=== PATIENT | female | born 1940 | race Caucasian/White ===

== ENCOUNTER 2017-08-15 12:17 | Inpatient (IN) ==
--- NOTE | 2017-08-15 13:31 | Emergency Department Note ---
Disposition Clinical Impression: Hypokalemia Sepsis Qualifiers: Sepsis type: sepsis due to unspecified organism Qualified Code(s): A41.9 - Sepsis, unspecified organism Leukocytosis Qualifiers: Leukocytosis type: unspecified Qualified Code(s): D72.829 - Elevated white blood cell count, unspecified Renal failure Qualifiers: Renal failure chronicity: unspecified chronicity Qualified Code(s): N19 - Unspecified kidney failure Disposition: Admitted As Inpatient Condition: Fair Referrals: Michael Agudelo MD [Primary Care Provider] - Forms: ED Satisfaction Letter General Adult HPI - General Chief complaint: ED Weakness Stated complaint: Weakness Time Seen by Provider: 08/15/17 12:20 Source: patient, EMS Limitations: no limitations Nursing Notes Reviewed: Yes Vital Signs Reviewed: Yes - History of Present Illness HPI Narrative: Presents with her daughter and her patient does have a history of dementia and lives at home and presents today with complaint of decreased ability to use her left arm, slurred speech, shortness of breath which always present when she woke up this morning. She does have some rhinorrhea, cough, sneezing. No fever. Did have some blurred vision. No blood in the urine or stool. No pain or numbness or swelling of the extremities, skin rash or bruising of the skin. Symptoms have been present since this morning and began at home and she does have associated left-sided chest pain and left upper abdominal pain. She is not able to describe the character of the chest pain. Does not know if it is exertional because she has not walked yet today. Does not have a pleuritic aspect. Social history: No smoking or alcohol. The patient is DNR - arrest. No chest compressions and no intubation Pain Scale: 5 - Related Data Home Medications Medication Instructions Recorded Confirmed Aspirin Enteric Coated [Aspirin EC] 325 mg PO DAILY 10/21/15 08/15/17 Ergocalciferol (VITAMIN D2) 50,000 unit PO QWEEK 10/21/15 08/15/17 [Drisdol (50,000 Unit)] Isosorbide MONOnitrate (24 HR) 30 mg PO DAILY 10/21/15 08/15/17 [Imdur] Omeprazole [PriLOSEC] 20 mg PO BIDAC 10/21/15 08/15/17 Albuterol Sulfate [Proair Hfa] 2 puff IH Q4H PRN 10/18/16 08/15/17 Budesonide/Formoterol 160/4.5 1 puff IH DAILY 10/18/16 08/15/17 [Symbicort 160/4.5] Donepezil HCl [Aricept] 10 mg PO DAILY 10/18/16 08/15/17 Folic Acid 0.4 mg PO DAILY 10/18/16 08/15/17 Furosemide [Lasix] 10 mg PO DAILY 10/18/16 08/15/17 Gabapentin [Neurontin] 300 mg PO TID 10/18/16 08/15/17 Ipratropium [ATROVENT Inhaler] 1 puff IH DAILY 10/18/16 08/15/17 Melatonin [Melatin] 3 mg PO HS 10/18/16 08/15/17 Nitroglycerin [Nitrostat] 0.4 mg SL AD PRN 10/18/16 08/15/17 Ondansetron HCl [Zofran] 4 mg PO TID PRN 10/18/16 08/15/17 Oxygen 1 each .ROUTE AD 10/18/16 08/15/17 Potassium Chloride [Klor-Con 10] 20 meq PO DAILY 10/18/16 08/15/17 Sertraline [Zoloft] 100 mg PO DAILY 10/18/16 08/15/17 Tiotropium [Spiriva] 18 mcg IH DAILY 10/18/16 08/15/17 diazePAM [Valium] 10 mg PO BID 10/18/16 08/15/17 Ezetimibe/Simvastatin [Vytorin 1 tab PO DAILY 08/15/17 08/15/17 10-20 mg Tablet] Metoprolol [Lopressor] 25 mg PO BID 08/15/17 08/15/17 Previous Rx's Medication Instructions Recorded HYDROcodone/Acet 5/325 mg [[place] 1 tab PO Q6HR PRN #15 tablet 01/12/16 5-325 mg] Losartan [Cozaar] 12.5 mg PO DAILY tablet 01/12/16 Lovastatin [Mevacor] 20 mg PO HS tablet 01/12/16 Allergies Allergy/AdvReac Type Severity Reaction Status Date / Time codeine Allergy Hives Verified 10/18/16 10:11 iodine Allergy Hives Verified 10/18/16 10:11 methotrexate Allergy Hives Verified 10/18/16 10:11 Review of Systems: Refer to history of present illness Past Medical History - Past Medical History Medical history: Reports: atrial fibrillation, CHF, COPD, coronary artery disease, fibromyalgia, GERD, hyperlipidemia, hypertension, TIA Surgical history: Reports: heart valve replacement, pacemaker/AICD Psychiatric history: Reports: anxiety, depression - Social History Smoking Status: Never smoker Smokeless Tobacco Status: No Alcohol use: Reports: none Drug use: Reports: none Physical Exam CONSTITUTIONAL: Tired appearing, breathing comfortably, her stroke scale is 0. She does know the month and her age. He is able to answer questions seemingly accurately HEAD: Normocephalic; atraumatic. EYES: PERRL, EOMI, no scleral icterus NOSE: The nose is normal in appearance without rhinorrhea NECK: Supple without rigidity, no NILS RESP: Normal chest excursion with respiration; breath sounds clear and equal bilaterally; no wheezes, rhonchi, or rales CARD: Regular rhythm, without murmurs, rub or gallop ABD: Non-distended; non-tender, soft, without rigidity, rebound or guarding SKIN: Normal for age and race; warm and dry; no apparent lesions, no rash NEUROLOGICAL: Patient is alert and oriented times three. Cranial nerves III- XII are intact. Sensory and motor functions are intact. Strength is 5/5 for flexion and extension in all 4 extremities. Finger to nose testing is equal and normal bilaterally except that there is some resting tremor of the left upper extremity . - General Limitations: no limitations General appearance: alert Course Vital Signs Temperature 98.2 F 08/15/17 12:19 Pulse Rate 110 08/15/17 12:19 Respiratory Rate 18 08/15/17 12:19 Blood Pressure 133/100 08/15/17 12:19 O2 Sat by Pulse Oximetry 99 08/15/17 12:19 Temperature 98.2 F 08/15/17 12:19 Pulse Rate 97 08/15/17 14:35 Respiratory Rate 18 08/15/17 14:35 Blood Pressure 102/68 08/15/17 14:35 O2 Sat by Pulse Oximetry 99 08/15/17 14:35 Oxygen Delivery Oxygen Delivery Room Air Medical Decision Making - MDM Narrative Medical decision making narrative: The patient does have symptoms concerning for stroke however she is not a thrombolytic candidate because we do not know the onset of the symptoms that she woke with the symptoms. She states she is not able to use her left arm adequately however does not have left leg symptoms. I do not appreciate any slurred speech at the present time. Her stroke scale is 0. She also does have significant pain with palpation left anterior chest wall and left upper quadrant abdomen and will have further evaluation with a CTA of the chest and abdomen to further look for possible pulmonary embolism, mass, mesenteric ischemia or other life-threatening etiology. She will be admitted. 1314 I did review the initial labs and the patient is hypokalemic and will receive oral potassium. I did speak with the daughter the patient has had IV contrast without difficulty and she has had that within the last several years. He stated that over 10 or 15 years ago she did have a IVP and he thought she was allergic to IVP dye but she does not have an allergy to contrast. 1338 I did review the patient's initial EKG showing a paced rhythm with a rate of 60 and I did compare this to the previous EKG from 2016. CT of the chest and abdomen are pending. Patient does not have an allergy to contrast and she is getting the CT done at this time. Minimally decreased renal function but as there is a concern for pulmonary embolism, aortic dissection the patient does have further evaluation needed with a contrast chest CT. 1412 CT of the chest and abdomen are pending. I did speak with the hospitalist to admit the patient. I have given an additional 1 L of IV fluid as well as started the patient on Zosyn and vancomycin. She does have leukocytosis, significantly elevated lactate level. Additionally I did choose to do a CT scan despite the fact that she does have some, as the renal function as a risk to outweigh the benefits based on consideration for things like pulmonary embolism or a pneumonia which could warp changer and additionally she could have a intra-abdominal process which could require emergent surgery for source control. Critical care time: 45 minutes - Medical Records Medical records reviewed: Yes I reviewed the patient's medical records. - Lab Data Lab results reviewed: Yes I reviewed the patient's lab results. Result diagrams: 08/15/17 14:43 08/15/17 13:11 Lab Results 08/15/17 08/15/17 08/15/17 Range/Units 13:11 13:11 13:11 WBC (4.3-11.1) K/mcL RBC (3.82-4.97) M/mcL Hgb (11.5-15.4) g/dL Hct (35.3-44.9) % MCV (83.0-100.0) fL MCH (28.0-33.3) pg MCHC (31.6-35.5) g/dL RDW (11.5-14.5) % Plt Count (140-400) K/mcL MPV (9.4-12.4) fL Seg Neutrophils % % Band Neutrophils % (0-4) % Lymphocytes % % Monocytes % % Eosinophils % % Neutrophils # (1.6-8.9) K/mcL Lymphocytes # (0.6-4.6) K/mcL Monocytes # (0.0-1.3) K/mcL Eosinophils # (0.0-0.6) K/mcL Platelet Estimate (Normal) Large Platelets (Not Present) Sodium 140 (136-145) mEq/L Potassium 3.0 L (3.5-4.5) mEq/L Chloride 106 (98-109) mEq/L Carbon Dioxide 19 (19-29) mEq/L BUN 22 H (7-20) mg/dL Creatinine 1.41 H (0.57-1.11) mg/dL Est GFR ( Amer) 44 L (> 60) Est GFR (Non-Af Amer) 36 L (> 60) BUN/Creatinine Ratio 16 (6-26) Glucose 162 H (70-99) mg/dL POC Glucose (58-89) Calculated Osmolality 297 (280-300) Lactic Acid (0.5-2.2) mmol/L Calcium 10.4 (8.6-10.8) mg/dL Total Bilirubin 0.3 (0.2-1.2) mg/dL AST 19 (5-34) Units/L ALT 10 (0-55) Units/L Alkaline Phosphatase 95 (38-126) Units/L Troponin I 0.04 H* (0-0.03) ng/mL Serum Total Protein 8.4 H (6.0-8.3) g/dL Albumin 4.1 (3.5-5.0) g/dL Globulin 4.3 H (2.4-3.5) g/dL Albumin/Globulin Ratio 1.0 L (1.1-2.2) Urine Color (Yellow) Urine Clarity (Clear) Urine pH (5.0-8.0) pH Units Ur Specific [place] (1.010-1.025) Urine Protein (Neg-Trace) mg/dL Urine Glucose (UA) (Normal) mg/dL Urine Ketones (Negative) mg/dL Urine Blood (Negative) Urine Nitrite (Negative) Urine Bilirubin (Negative) Urine Urobilinogen (Normal) mg/dL Ur Leukocyte Esterase (Negative) Urine Microscopic RBC (0-3) per hpf Urine Microscopic WBC (0-3) per hpf Ur Squamous Epith Cells (None-Few) per lpf Amorphous Sediment (Few) Urine Bacteria (None-Few) per hpf Hyaline Casts (None-Few) per lpf Urine Mucus (Few) Ur Culture Indicated? (NO) Specimen Rejected Clotted 08/15/17 08/15/17 08/15/17 Range/Units 13:15 14:43 15:30 WBC 30.0 H* (4.3-11.1) K/mcL RBC 4.68 (3.82-4.97) M/mcL Hgb 12.3 (11.5-15.4) g/dL Hct 39.0 (35.3-44.9) % MCV 83.3 (83.0-100.0) fL MCH 26.3 L (28.0-33.3) pg MCHC 31.5 L (31.6-35.5) g/dL RDW 14.5 (11.5-14.5) % Plt Count 233 (140-400) K/mcL MPV 10.9 (9.4-12.4) fL Seg Neutrophils % 80.0 % Band Neutrophils % 12.0 H (0-4) % Lymphocytes % 4.0 % Monocytes % 2.0 % Eosinophils % 2.0 % Neutrophils # 27.6 H (1.6-8.9) K/mcL Lymphocytes # 1.2 (0.6-4.6) K/mcL Monocytes # 0.6 (0.0-1.3) K/mcL Eosinophils # 0.6 (0.0-0.6) K/mcL Platelet Estimate Normal (Normal) Large Platelets (Not Present) Sodium (136-145) mEq/L Potassium (3.5-4.5) mEq/L Chloride (98-109) mEq/L Carbon Dioxide (19-29) mEq/L BUN (7-20) mg/dL Creatinine (0.57-1.11) mg/dL Est GFR ( Amer) (> 60) Est GFR (Non-Af Amer) (> 60) BUN/Creatinine Ratio (6-26) Glucose (70-99) mg/dL POC Glucose 155 H (58-89) Calculated Osmolality (280-300) Lactic Acid 4.9 H* (0.5-2.2) mmol/L Calcium (8.6-10.8) mg/dL Total Bilirubin (0.2-1.2) mg/dL AST (5-34) Units/L ALT (0-55) Units/L Alkaline Phosphatase (38-126) Units/L Troponin I (0-0.03) ng/mL Serum Total Protein (6.0-8.3) g/dL Albumin (3.5-5.0) g/dL Globulin (2.4-3.5) g/dL Albumin/Globulin Ratio (1.1-2.2) Urine Color (Yellow) Urine Clarity (Clear) Urine pH (5.0-8.0) pH Units Ur Specific [place] (1.010-1.025) Urine Protein (Neg-Trace) mg/dL Urine Glucose (UA) (Normal) mg/dL Urine Ketones (Negative) mg/dL Urine Blood (Negative) Urine Nitrite (Negative) Urine Bilirubin (Negative) Urine Urobilinogen (Normal) mg/dL Ur Leukocyte Esterase (Negative) Urine Microscopic RBC (0-3) per hpf Urine Microscopic WBC (0-3) per hpf Ur Squamous Epith Cells (None-Few) per lpf Amorphous Sediment (Few) Urine Bacteria (None-Few) per hpf Hyaline Casts (None-Few) per lpf Urine Mucus (Few) Ur Culture Indicated? (NO) Specimen Rejected 08/15/17 Range/Units 15:42 WBC (4.3-11.1) K/mcL RBC (3.82-4.97) M/mcL Hgb (11.5-15.4) g/dL Hct (35.3-44.9) % MCV (83.0-100.0) fL MCH (28.0-33.3) pg MCHC (31.6-35.5) g/dL RDW (11.5-14.5) % Plt Count (140-400) K/mcL MPV (9.4-12.4) fL Seg Neutrophils % % Band Neutrophils % (0-4) % Lymphocytes % % Monocytes % % Eosinophils % % Neutrophils # (1.6-8.9) K/mcL Lymphocytes # (0.6-4.6) K/mcL Monocytes # (0.0-1.3) K/mcL Eosinophils # (0.0-0.6) K/mcL Platelet Estimate (Normal) Large Platelets (Not Present) Sodium (136-145) mEq/L Potassium (3.5-4.5) mEq/L Chloride (98-109) mEq/L Carbon Dioxide (19-29) mEq/L BUN (7-20) mg/dL Creatinine (0.57-1.11) mg/dL Est GFR ( Amer) (> 60) Est GFR (Non-Af Amer) (> 60) BUN/Creatinine Ratio (6-26) Glucose (70-99) mg/dL POC Glucose (58-89) Calculated Osmolality (280-300) Lactic Acid (0.5-2.2) mmol/L Calcium (8.6-10.8) mg/dL Total Bilirubin (0.2-1.2) mg/dL AST (5-34) Units/L ALT (0-55) Units/L Alkaline Phosphatase (38-126) Units/L Troponin I (0-0.03) ng/mL Serum Total Protein (6.0-8.3) g/dL Albumin (3.5-5.0) g/dL Globulin (2.4-3.5) g/dL Albumin/Globulin Ratio (1.1-2.2) Urine Color [place] A (Yellow) Urine Clarity Cloudy A (Clear) Urine pH 5.0 (5.0-8.0) pH Units Ur Specific [place] 1.030 H (1.010-1.025) Urine Protein 100 H (Neg-Trace) mg/dL Urine Glucose (UA) Normal (Normal) mg/dL Urine Ketones Trace H (Negative) mg/dL Urine Blood Negative (Negative) Urine Nitrite Negative (Negative) Urine Bilirubin Moderate H (Negative) Urine Urobilinogen Normal (Normal) mg/dL Ur Leukocyte Esterase Moderate H (Negative) Urine Microscopic RBC 3-5 H (0-3) per hpf Urine Microscopic WBC 50-100 H (0-3) per hpf Ur Squamous Epith Cells Many H (None-Few) per lpf Amorphous Sediment Many H (Few) Urine Bacteria Many H (None-Few) per hpf Hyaline Casts Many H (None-Few) per lpf Urine Mucus Many H (Few) Ur Culture Indicated? YES A (NO) Specimen Rejected Critical Care Time Critical Care Time: Yes Total Critical Care Time: 45 Attestation: Patient does have septic shock with altered consciousness, shortness of breath, leukocytosis and elevated lactate level and she is started on Zosyn and vancomycin NIH Stroke Scale - Level of Consciousness LOC: Alert - LOC Questions LOC Questions: Answers both correctly - LOC Commands LOC Commands: Performs both correctly - Best Gaze Best Gaze: Normal - Visual Visual: No visual loss - Facial Palsy Facial Palsy: Normal - Motor Arms Motor Arm-Left: No drift for 10 seconds Motor Arm-Right: No drift for 10 seconds - Motor Legs Motor Leg-Left: No drift for 5 seconds Motor Leg-Right: No drift for 5 seconds - Limb Ataxia Limb Ataxia: Normal, No Ataxia - Sensory Sensory: Normal - Best Language Best Language: No aphasia - Dysarthria Dysarthria: Normal - Extinction and Inattention Extinction and Inattention: Normal - NIHSS Total Score NIHSS Total Score: 0
[2017-08-15 13:34] LABS: Albumin 4.1 g/dL (3.5-5.0); Bilirubin,Total 0.3 mg/dL (0.2-1.2); Calcium 10.4 mg/dL (8.6-10.8); Globulin 4.3 g/dL (2.4-3.5); Total Protein 8.4 g/dL (6.0-8.3)
[2017-08-15] MEDS ORDERED: Potassium Chloride Elixir 20 MEQ/15 ML UDC PO ONE (13:38)
[2017-08-15] MEDS ORDERED: 0.9 % Sodium Chloride 500 ML IVC ONE ×2 (14:01→16:02)
[2017-08-15 14:57] LABS: Hemoglobin 12.3 g/dL (11.5-15.4); Mean Corpuscular HGB Conc 31.5 g/dL (31.6-35.5); Mean Corpuscular Hemoglobin 26.3 pg (28.0-33.3); Mean Corpuscular Volume 83.3 fL (83.0-100.0); Mean Platelet Volume 10.9 fL (9.4-12.4); Platelet Count 233 K/mcL (140-400); Red Blood Count 4.68 M/mcL (3.82-4.97); Red Cell Distribution Width 14.5 % (11.5-14.5)
[2017-08-15 15:25] LABS: Eosinophils # 0.6 K/mcL (0.0-0.6); Lymphocytes # 1.2 K/mcL (0.6-4.6); Monocytes # 0.6 K/mcL (0.0-1.3); Neutrophils # 27.6 K/mcL (1.6-8.9); Platelet Estimate Normal (Normal)
[2017-08-15 15:55] LABS: Bilirubin,Urine Moderate (Negative); Blood,Urine Negative (Negative); Clarity,Urine Cloudy (Clear); Glucose,Urine (UA) Normal (Normal); Ketones,Urine Trace mg/dL (Negative); Leukocyte Esterase,Urine Moderate (Negative); Nitrite,Urine Negative (Negative); Protein,Urine 100 mg/dL (Neg-Trace); Urobilinogen,Urine Normal (Normal)
[2017-08-15 15:57] LABS: Squamous Epithelial Cell,Urine Many per lpf (None-Few); WBC,Urine 50-100 per hpf (0-3)
[2017-08-15] MEDS ORDERED: Piperacillin/Tazobactam 4.5 GM in D5% in Water (Mini-Bag+) 100 ML IVPB ONE (16:02)
[2017-08-15] MEDS ORDERED: Vancomycin 1,000 MG in D5% in Water 250 ML IVPB ONE ×2 (16:02→16:07)
[2017-08-15 16:03] LABS: Color,Urine Amber (Yellow)
[2017-08-15] MEDS ORDERED: 0.9 % Sodium Chloride 1,000 ML IVC ONE (16:03)
[2017-08-15 16:12] LABS: Hyaline Casts,Urine Many per lpf (None-Few)
[2017-08-15 16:13] LABS: Amorphous Sediment,Urine Many (Few); Bacteria,Urine Many per hpf (None-Few); Mucus,Urine Many (Few)
[2017-08-15] MEDS ORDERED: Naloxone 0.4 MG/ML INJ IVP PRN (20:11)
[2017-08-15] MEDS ORDERED: Ondansetron 4 MG/2 ML VIAL IVP PRN (20:11)
[2017-08-15] MEDS ORDERED: Nitroglycerin 0.4 MG TAB.SUBL SL PRN (20:14)
[2017-08-15] MEDS ORDERED: Albuterol 2.5 MG/3 ML NEBULIZER IH PRN (20:16)
--- NOTE | 2017-08-15 20:36 | Internal Med History&Physical ---
<Jean Carlos Drummond - Last Filed: 08/15/17 23:46> Date of Encounter: 08/15/17 Time of Encounter: 20:00 Assessment and Plan (1) Septic shock Current visit: Yes Status: Acute Patient diagnosed with septic shock based on altered consciousness on presentation, shortness of breath, leukocytosis with white count 30, elevated lactate level of 4.9. -Both blood and urine cultures have been ordered. -Patient was started on vancomycin and Zosyn. -Continue to monitor patient vital signs. (2) UTI (urinary tract infection) Current visit: No Status: Acute Urinalysis revealed ariadna, cloudy urine, with bacteria, mucus, protein, white blood cells present. -Both blood and urine cultures have been ordered. -Urinary tract infection is possible source of patient's sepsis. -Patient was started on vancomycin and Zosyn. Qualifiers: Urinary tract infection type: site unspecified Hematuria presence: without hematuria Qualified Code(s): N39.0 - Urinary tract infection, site not specified (3) Weakness Current visit: No Status: Acute (4) Afib Current visit: No Status: Chronic Qualifiers: Atrial fibrillation type: chronic Qualified Code(s): I48.2 - Chronic atrial fibrillation Internal Medicine - H&P: HPI Admitted From: Home History of present illness: Ms. Chaidez is a 77 year old female with a past medical history of atrial fibrillation, CHF, COPD, coronary artery disease, fibromyalgia, GERD, hyperlipidemia, hypertension, and TIA who presented to the emergency department with the chief complaint of decreased ability to use her left arm, slurred speech, and shortness of breath. Upon presentation the hospital, patient did have some rhinorrhea, cough, and sneezing. She denied having any fever on presentation. Patient denied having any numbness, swelling, or burning of the skin. Patient denied having any trouble swallowing. Patient states that her symptoms gradually improved after admission, patient was able to use her left arm after a few hours. Patient also did not have any slurred speech a few hours after admission. Patient does admit to having some pain in her shoulder on the left side, although this has been present for approximately one year. Patient does also admit having some mild chest pain on the lower border of her right breast. This pain is hard to describe, and is only mild in severity. Patient does not know if it is exertional or not, as she has not been able to walk today. She denies any fever or chills. Past Med Surg Social Fam HX - Past Medical History Medical history: atrial fibrillation, CHF, COPD, coronary artery disease, fibromyalgia, GERD, hyperlipidemia, hypertension, TIA Psychiatric history: anxiety, depression - Past Surgical History Surgical History: heart valve replacement, pacemaker/AICD - Social History Smoking Status: Never smoker Smokeless Tobacco Status: No Alcohol use: none Drug use: none - Family History Mother Living Status: Age at : 67 Cause of : heart attack Hx Family Cardiac Disorders: Yes Father Living Status: Age at : 62 Cause of : heart attack Hx Family Cardiac Disorders: Yes Internal Medicine - H&P: Meds Aspirin Enteric Coated [Aspirin EC] 325 mg PO DAILY 10/21/15 [History] Ergocalciferol (VITAMIN D2) [Drisdol (50,000 Unit)] 50,000 unit PO QWEEK [History] Isosorbide MONOnitrate (24 HR) [Imdur] 30 mg PO DAILY 10/21/15 [History] Omeprazole [PriLOSEC] 20 mg PO BIDAC 10/21/15 [History] HYDROcodone/Acet 5/325 mg [[place] 5-325 mg] 1 tab PO Q6HR PRN #15 tablet [Rx] Losartan [Cozaar] 12.5 mg PO DAILY tablet 01/12/16 [Rx] Lovastatin [Mevacor] 20 mg PO HS tablet 01/12/16 [Rx] Albuterol Sulfate [Proair Hfa] 2 puff IH Q4H PRN 10/18/16 [History] Budesonide/Formoterol 160/4.5 [Symbicort 160/4.5] 1 puff IH DAILY 10/18/16 [ History] Donepezil HCl [Aricept] 10 mg PO DAILY 10/18/16 [History] Folic Acid 0.4 mg PO DAILY 10/18/16 [History] Furosemide [Lasix] 10 mg PO DAILY 10/18/16 [History] Gabapentin [Neurontin] 300 mg PO TID 10/18/16 [History] Ipratropium [ATROVENT Inhaler] 1 puff IH DAILY 10/18/16 [History] Melatonin [Melatin] 3 mg PO HS 10/18/16 [History] Nitroglycerin [Nitrostat] 0.4 mg SL AD PRN 10/18/16 [History] Ondansetron HCl [Zofran] 4 mg PO TID PRN 10/18/16 [History] Oxygen 1 each .ROUTE AD 10/18/16 [History] Potassium Chloride [Klor-Con 10] 20 meq PO DAILY 10/18/16 [History] Sertraline [Zoloft] 100 mg PO DAILY 10/18/16 [History] Tiotropium [Spiriva] 18 mcg IH DAILY 10/18/16 [History] diazePAM [Valium] 10 mg PO BID 10/18/16 [History] Ezetimibe/Simvastatin [Vytorin 10-20 mg Tablet] 1 tab PO DAILY 08/15/17 [History ] Metoprolol [Lopressor] 25 mg PO BID 08/15/17 [History] 3 Allergy/AdvReac Type Severity Reaction Status Date / Time codeine Allergy Hives Verified 10/18/16 10:11 iodine Allergy Hives Verified 10/18/16 10:11 methotrexate Allergy Hives Verified 10/18/16 10:11 All Systems PM: A 10-system review of systems was performed and is negative for pertinent findings except as documented above in the HPI. - Constitutional Constitutional: no chills, no fever(s), no night sweats - EENT Eyes: no change in vision, no discharge, no pain, no photophobia Ears: no ear discharge, no ear pain, no tinnitus Nose, mouth and throat: no dysphagia, no nasal discharge, no neck pain, no sore throat - Cardiovascular Cardiovascular ROS IM: no chest pain, no diaphoresis, no dyspnea, no lightheadedness, no palpitations, no syncope - Respiratory Respiratory: no cough, no dyspnea, no wheezing, no excessive phlegm production - Gastrointestinal Gastrointestinal: no abdominal pain, no diarrhea, no hematemesis, no hematochezia, no melena, no nausea, no vomiting - Genitourinary Genitourinary: no dysuria, no flank pain - Musculoskeletal Musculoskeletal ROS IM: no numbness, no tingling - Integumentary Integumentary IM: no rash, no unusual bruising - Neurological Neurological ROS: no confusion, no convulsions, no focal weakness, no numbness, no tingling, no tremor(s) - Hematologic/Lymphatic Hematologic/Lymphatic: no easy bruising - Constitutional Vitals: Temp Pulse Resp BP Pulse Ox 97.9 F 100 17 148/94 98 08/15/17 19:04 08/15/17 19:04 08/15/17 19:04 08/15/17 19:04 08/15/17 19:04 General appearance: Present: A&O X 3, no acute distress, answers questions appropriately - Head Head exam: Present: atraumatic, normocephalic - Eye Eye exam: Present: PERRL, conjuntiva pink, sclera anicteric Pupils: Present: PERRL - Neck Neck exam general surgery: Present: supple, trachea midline. Absent: lymphadenopathy - Respiratory Respiratory exam: Present: CTAB. Absent: accessory muscle use, rales, rhonchi, wheezes - Cardiovascular Cardiovascular exam: Present: +S1, +S2, systolic murmur, tachycardia. Absent: diastolic murmur, gallop, rubs - GI/Abdominal GI/Abdominal exam: Present: normal bowel sounds, soft, no peritoneal signs. Absent: distended, tenderness - Extremities Exam Extremities exam: Present: warm, radial pulses palpable and symmetrical. Absent : calf tenderness, cyanotic, pedal edema - Neurological Exam Neurological exam: Present: CN II-XII intact, oriented X3, no focal deficits. Absent: pronater drift, facial droop, speech deficit - Skin Skin exam: Present: dry, intact Internal Med - H&P Results - Labs CBC & Chem 7: 08/15/17 14:43 08/15/17 13:11 <Camilo Kapoor - Last Filed: 08/16/17 03:24> Date of Encounter: 08/15/17 Assessment and Plan (1) HTN (hypertension) Current visit: Yes Status: Chronic Hold all antihypertensives with the exception of metoprolol with holding parameters due to concern for the possibility of developing AFIB RVR in the setting of severe sepsis Qualifiers: Hypertension type: essential hypertension Qualified Code(s): I10 - Essential (primary) hypertension (2) GERD (gastroesophageal reflux disease) Current visit: Yes Status: Chronic Continue PPI Qualifiers: Esophagitis presence: without esophagitis Qualified Code(s): K21.9 - Gastro -esophageal reflux disease without esophagitis (3) Hypokalemia Current visit: Yes Status: Acute Potassium of 3.0, may be related to poor or intake, will replace and follow BMP (4) Acute renal injury Current visit: Yes Status: Acute Patient with baseline creatinine of 0.7, now has creatinine of 1.41 in the setting of severe sepsis, etiology of this DIMITRI is most likely pre-renal, will override nephrotoxins, renally dose all medications and follow BMP (5) Elevated troponin level Current visit: Yes Status: Acute Elevated troponin may be related to either DIMITRI with poor renal clearance or demand ischemia from severe sepsis, she does not endorse chest pain, will repeat in AM (6) COPD (chronic obstructive pulmonary disease) Current visit: Yes Status: Chronic stable, will do PRN nebs Qualifiers: COPD type: emphysema Emphysema type: centrilobular Qualified Code(s): J43.2 - Centrilobular emphysema (7) Dementia Current visit: Yes Status: Chronic continue aricept and monitor for delirium in the setting of critical illness Qualifiers: Dementia type: Alzheimer's disease Alzheimer's disease onset: late-onset Dementia behavioral disturbance: without behavioral disturbance Qualified Code (s): G30.1 - Alzheimer's disease with late onset; F02.80 - Dementia in other diseases classified elsewhere without behavioral disturbance; F02.80 - Dementia in other diseases classified elsewhere without behavioral disturbance; F02.80 - Dementia in other diseases classified elsewhere without behavioral disturbance Internal Medicine - H&P: HPI History of present illness: Ms. Chaidez is a 77 year old female All Systems PM: A 10-system review of systems was performed and is negative for pertinent findings except as documented above in the HPI. - Constitutional Vitals: Temp Pulse Resp BP Pulse Ox 97.9 F 100 17 148/94 98 08/15/17 19:04 08/15/17 19:04 08/15/17 19:04 08/15/17 19:04 08/15/17 19:04 Internal Med - H&P Results - Labs CBC & Chem 7: 08/16/17 01:30 08/16/17 01:30 Labs: Short CBC 08/16/17 Range/Units 01:30 WBC 14.8 H D (4.3-11.1) K/mcL Hgb 10.5 L D (11.5-15.4) g/dL Hct 33.2 L (35.3-44.9) % Plt Count 200 (140-400) K/mcL Neutrophils # 12.9 H (1.6-8.9) K/mcL BMP 08/16/17 01:30 Sodium 139 Potassium 4.7 H D Chloride 111 H Carbon Dioxide 19 BUN 21 H Creatinine 1.21 H Glucose 117 H Calcium 9.3 Cardiac Enzymes 08/16/17 Range/Units 01:30 Troponin I 0.80 H* (0-0.03) ng/mL - Attending Attestation I personally interviewed and examined this patient and my medical decision- making was reviewed with the Resident Physician. I agree with the documented findings, disposition and treatment plan as described except to the extent set forth below. Patient is being admitted as a case of severe sepsis(not septic shock) secondary to UTI, DIMITRI, hypokalemia, hypertension, Gerd. Cycle lactate, empiric Abx with IV ceftriaxone pending cultures. Camilo Kapoor MD, MPH Hospitalist
[2017-08-15] MEDS: diazePAM 10 MG TABLET PO SCH (22:17)
[2017-08-15] MEDS: Acetaminophen 325 MG TABLET PO PRN (22:18)
[2017-08-15] MEDS: Melatonin 3 MG TABLET PO SCH (22:18)
[2017-08-15] MEDS: 0.9 % Sodium Chloride 1,000 ML IVC SCH (22:19)
[2017-08-16] MEDS: *HR* Heparin 5,000 UNIT/ML VIAL SQ SCH ×3 (00:32→15:20)
[2017-08-16 01:40] LABS: Basophils % 0.1 %; Hematocrit 33.2 % (35.3-44.9); Immature Granulocytes % 0.5 % (0-4); Lymphocytes # 1.2 K/mcL (0.6-4.6); Lymphocytes % 8.1 %; Mean Corpuscular HGB Conc 31.6 g/dL (31.6-35.5); Mean Corpuscular Hemoglobin 26.8 pg (28.0-33.3); Mean Corpuscular Volume 84.7 fL (83.0-100.0); Mean Platelet Volume 10.6 fL (9.4-12.4); Monocytes # 0.6 K/mcL (0.0-1.3); Neutrophils # 12.9 K/mcL (1.6-8.9); Platelet Count 200 K/mcL (140-400); Red Blood Count 3.92 M/mcL (3.82-4.97); Red Cell Distribution Width 14.6 % (11.5-14.5); Segmented Neutrophils % 87.3 %
[2017-08-16 01:41] LABS: Hemoglobin 10.5 g/dL (11.5-15.4)
[2017-08-16 01:52] LABS: Calcium 9.3 mg/dL (8.6-10.8); Magnesium 1.7 mg/dL (1.6-2.6); Phosphorous 3.9 mg/dL (2.3-4.7)
[2017-08-16 01:53] LABS: Potassium 4.7 mEq/L (3.5-4.5)
[2017-08-16] MEDS: 0.9 % Sodium Chloride 1,000 ML IVC SCH ×2 (06:28→15:16)
[2017-08-16] MEDS ORDERED: Isosorbide MONOnitrate (24 HR) 30 MG TAB.ER.24H PO SCH (09:00)
--- NOTE | 2017-08-16 09:23 | Electrocardiograph Report ---
[facility] Test Date: 2017-08-15 Pat Name: Florecita Chaidez Department: 103 Room: 2NE22 Gender: F Test Grader: : 1940 Requested By: Gabriel Santos Order Number: [id number] Reading MD: Eamon Baez MD Measurements Intervals [place] Rate: 60 P: 244 TN: 289 QRS: -62 QRSD: 202 T: 120 QT: 557 QTc: 557 Interpretive Statements ELECTRONIC ATRIAL PACEMAKER ELECTRONIC VENTRICULAR PACEMAKER ABNORMAL RHYTHM ECG Electronically Signed On 08-16-2017 9:21:50 EDT by Eamon Baez MD
[2017-08-16] MEDS: diazePAM 10 MG TABLET PO SCH ×2 (09:59→22:14)
[2017-08-16] MEDS: *HR* HYDROcodone/Acet 5/325 mg TABLET PO PRN ×2 (10:04→19:01)
[2017-08-16] MEDS: Tiotropium 18 MCG inhalation IH SCH (10:12)
--- NOTE | 2017-08-16 11:30 | Internal Med Progress Note ---
<Isatu Aly - Last Filed: 08/16/17 11:49> Date of Encounter: 08/16/17 Time of Encounter: 11:18 - Assessment and plan (1) Elevated troponin level Current Visit: Yes Status: Acute Assessment and plan: complaint of vague chest pain on admission, currently chest pain free peak of 0.8, trending down cardiology consulted; appreciate recommendations (2) UTI (urinary tract infection) Current Visit: No Status: Acute Assessment and plan: Urinalysis with leukocyte esterase, WBC, many bacteria, mucus, hyaline casts, many epithelial cells currently on rocephin received vancomycin and rocephin in ER Qualifiers: Urinary tract infection type: site unspecified Hematuria presence: without hematuria Qualified Code(s): N39.0 - Urinary tract infection, site not specified (3) Acute on chronic renal failure Current Visit: Yes Status: Acute Assessment and plan: baseline Cr appears to be around 1 avoid nephrotoxins as able renally dose medications if necessary Qualifiers: Acute renal failure type: unspecified Chronic kidney disease stage: stage 3 (moderate) Qualified Code(s): N17.9 - Acute kidney failure, unspecified; N18.3 - Chronic kidney disease, stage 3 (moderate); N18.3 - Chronic kidney disease, stage 3 (moderate) (4) Severe sepsis Current Visit: Yes Status: Resolved Assessment and plan: resolved severe sepsis on admission with lactate 4.9 (5) TIA (transient ischemic attack) Current Visit: Yes Status: Suspected Assessment and plan: suspected patient history of weakness and slurred speech NIH stroke scale of 0 in the ER no focal deficits on exam Qualifiers: Transient cerebral ischemia type: unspecified Qualified Code(s): G45.9 - Transient cerebral ischemic attack, unspecified - Subjective Interval history: Patient states that she feels better today. She is requesting discharge. Denies chest pain, abdominal pain. States stable dyspnea. - Constitutional Vitals: Temp Pulse Resp BP Pulse Ox 98.2 F 100 18 117/71 96 08/16/17 07:00 08/16/17 07:00 08/16/17 07:00 08/16/17 07:00 08/16/17 07:00 General appearance: Present: A&O X 3, no acute distress, answers questions appropriately - Head Head exam: Present: atraumatic, normocephalic - Eye Eye exam: Present: PERRL, conjuntiva pink, sclera anicteric Pupils: Present: PERRL - Neck Neck exam general surgery: Present: supple, trachea midline - Respiratory Respiratory exam: Present: CTAB. Absent: accessory muscle use, rales, rhonchi, wheezes - Cardiovascular Cardiovascular exam: Present: RRR, +S1, +S2, systolic murmur (2/6) - GI/Abdominal GI/Abdominal exam: Present: normal bowel sounds, soft, no peritoneal signs. Absent: distended, tenderness - Extremities Exam Extremities exam: Present: warm. Absent: calf tenderness, cyanotic, pedal edema - Neurological Exam Neurological exam: Present: alert, CN II-XII intact, oriented X3, no focal deficits. Absent: pronater drift, facial droop, speech deficit - Skin Skin exam: Present: dry, intact, warm Internal Medicine: Result - Labs CBC & Chem 7: 08/16/17 01:30 08/16/17 01:30 Labs: Short CBC 08/16/17 Range/Units 01:30 WBC 14.8 H D (4.3-11.1) K/mcL Hgb 10.5 L D (11.5-15.4) g/dL Hct 33.2 L (35.3-44.9) % Plt Count 200 (140-400) K/mcL Neutrophils # 12.9 H (1.6-8.9) K/mcL BMP 08/16/17 01:30 Sodium 139 Potassium 4.7 H D Chloride 111 H Carbon Dioxide 19 BUN 21 H Creatinine 1.21 H Glucose 117 H Calcium 9.3 Cardiac Enzymes 08/16/17 08/16/17 Range/Units 01:30 09:15 Troponin I 0.80 H* 0.68 H* (0-0.03) ng/mL Consult Discharge Plan - Plan Referrals: Michael Agudelo MD [Primary Care Provider] - <Tyler Acosta - Last Filed: 08/16/17 18:52> Date of Encounter: 08/16/17 - Constitutional Vitals: Temp Pulse Resp BP Pulse Ox 98.2 F 78 18 106/79 98 08/16/17 07:00 08/16/17 15:52 08/16/17 07:00 08/16/17 15:52 08/16/17 15:52 Internal Medicine: Result - Labs CBC & Chem 7: 08/16/17 01:30 08/16/17 01:30 Labs: Short CBC 08/16/17 Range/Units 01:30 WBC 14.8 H D (4.3-11.1) K/mcL Hgb 10.5 L D (11.5-15.4) g/dL Hct 33.2 L (35.3-44.9) % Plt Count 200 (140-400) K/mcL Neutrophils # 12.9 H (1.6-8.9) K/mcL BMP 08/16/17 01:30 Sodium 139 Potassium 4.7 H D Chloride 111 H Carbon Dioxide 19 BUN 21 H Creatinine 1.21 H Glucose 117 H Calcium 9.3 Cardiac Enzymes 08/16/17 08/16/17 08/16/17 Range/Units 01:30 09:15 14:58 Troponin I 0.80 H* 0.68 H* 0.54 H* (0-0.03) ng/mL - Attending Attestation I examined this patient and my medical decision-making was reviewed with the Resident Physician. I agree with the documented findings, disposition and treatment plan as described except to the extent set forth below.
--- NOTE | 2017-08-16 14:40 | Cardiology Consult Note ---
<LizHarshalmellisa Wallace - Last Filed: 08/16/17 14:36> Date of Encounter: 08/16/17 Time of Encounter: 14:37 Assessment and Plan (1) Elevated troponin level Current Visit: Yes Status: Acute Peak troponin 0.80, downtrended to 0.68 in setting of sepsis, UTI, and DIMITRI. Suspect demand ischemia, nondiagnostic for ACS. Pt reports occasional chest pain, currently has bilateral shoulder pain. Echo 10/2016 EF was 70%. Recommend rechecking echo to evaluate EF. If EF remains preserved, will recommend medical management with outpt follow- up. Cardiac rehab not warranted. (2) Chest pain Current Visit: Yes Status: Acute Pt reports occasional chest pain at home as well. Follows with Dr. Escalona. Peak troponin 0.8, downtrended to 0.68 but in setting of sepsis, UTI and DIMITRI-- nondiagnostic for ACS. EKG paced rhythm. Pt had a stress test in November that was negative for ischemia or infarct but showed visual evidence of TID. She previously declined [facility]. She is still unsure as to if she would want one. Recommend medical management currently--will increase Imdur to 60mg. Add 81mg ASA. Continue BB and add statin. Check echo. If EF is preserved, anticipate sign off with outpt follow-up. Qualifiers: Chest pain type: unspecified Qualified Code(s): R07.9 - Chest pain, unspecified (3) History of aortic valve replacement with bioprosthetic valve Current Visit: No Status: Chronic Hx of AVR x 2. Last echo 10/2016, normal AV function by doppler. (4) Afib Current Visit: No Status: Chronic Known A-Fib. Paced rhythm. Not anticoagulated due to hx of GI bleed and falls risk. Qualifiers: Atrial fibrillation type: unspecified Qualified Code(s): I48.91 - Unspecified atrial fibrillation (5) CAD (coronary artery disease) Current Visit: No Status: Acute Hx of LAD stent. [facility] 2013 showed stable coronaries and patent stent. ASA, statin , BB, Imdur. Qualifiers: Coronary Disease-Associated Artery/Lesion type: [place] artery [place] vs. transplanted heart: [place] heart Associated angina: without angina Qualified Code(s): I25.10 - Atherosclerotic heart disease of [place] coronary artery without angina pectoris Discussion w patient/family: The assessment and plan as outlined above was discussed with the patient and/or family members who expressed understanding and agreement. All questions were answered. Thank you for involving us in the care of your patient. Please call with any questions. I will discuss all the above with Dr. Morgan Melo and make changes as necessary. History of Present Illness Consult date: 08/16/17 Requesting physician: Isatu Aly Consult reason: Elevated troponin, chest pain Chief complaint: Chest pain History of present illness: Ms. Chaidez is a 77 year old female with PMH of atrial fibrillation, PPM, COPD, CAD with hx of PCI, valvular heart disease with hx of aortic valve replacement x 2 and tricuspid valve repair, fibromyalgia, GERD, hyperlipidemia, hypertension , and TIA who presented to the emergency department with the chief complaint of decreased ability to use her left arm, slurred speech, diaphoresis, and shortness of breath. Patient states that her symptoms gradually improved after admission, patient was able to use her left arm after a few hours. Pt currently reports bilateral shoulder pain, but admits to having some pain in her shoulder on the left side for approximately one year. Patient does also admit having some mild chest pain under both breasts that she describes as "mild". Troponin 0.04, 0.80, 0.64. Cardiology consulted for further recommendations. She has since been found to be septic, have a UTI and possible TIA. Creatinine was also mildly elevated at 1.41. Recent CV testing: Pharmacologic nuclear stress test 11/02/16: Perfusion imaging negative for ischemia or infarct. TID ratio 1.8, visual evidence of TID. Gated EF >70%. Echo 10/19/16: EF 70%, bioprosthetic AV not well visualized. Normal function by doppler. Mild MRAnshu LHC 01/12/14: Stable coronaries and patent stent. Past Med Surg Social Fam HX - Past Medical History Medical history: atrial fibrillation, CHF, COPD, coronary artery disease, fibromyalgia, GERD, hyperlipidemia, hypertension, TIA Psychiatric history: anxiety, depression - Past Surgical History Surgical History: heart valve replacement, pacemaker/AICD - Social History Smoking Status: Never smoker Smokeless Tobacco Status: No Alcohol use: none Drug use: none - Family History Mother Living Status: Age at : 67 Cause of : heart attack Hx Family Cardiac Disorders: Yes Father Living Status: Age at : 62 Cause of : heart attack Hx Family Cardiac Disorders: Yes Medications and Allergies Aspirin Enteric Coated [Aspirin EC] 325 mg PO DAILY 10/21/15 [History] Ergocalciferol (VITAMIN D2) [Drisdol (50,000 Unit)] 50,000 unit PO QWEEK [History] Isosorbide MONOnitrate (24 HR) [Imdur] 30 mg PO DAILY 10/21/15 [History] Omeprazole [PriLOSEC] 20 mg PO BIDAC 10/21/15 [History] HYDROcodone/Acet 5/325 mg [Silas 5-325 mg] 1 tab PO Q6HR PRN #15 tablet [Rx] Losartan [Cozaar] 12.5 mg PO DAILY tablet 01/12/16 [Rx] Lovastatin [Mevacor] 20 mg PO HS tablet 01/12/16 [Rx] Albuterol Sulfate [Proair Hfa] 2 puff IH Q4H PRN 10/18/16 [History] Budesonide/Formoterol 160/4.5 [Symbicort 160/4.5] 1 puff IH DAILY 10/18/16 [ History] Donepezil HCl [Aricept] 10 mg PO DAILY 10/18/16 [History] Folic Acid 0.4 mg PO DAILY 10/18/16 [History] Furosemide [Lasix] 10 mg PO DAILY 10/18/16 [History] Gabapentin [Neurontin] 300 mg PO TID 10/18/16 [History] Ipratropium [ATROVENT Inhaler] 1 puff IH DAILY 10/18/16 [History] Melatonin [Melatin] 3 mg PO HS 10/18/16 [History] Nitroglycerin [Nitrostat] 0.4 mg SL AD PRN 10/18/16 [History] Ondansetron HCl [Zofran] 4 mg PO TID PRN 10/18/16 [History] Oxygen 1 each .ROUTE AD 10/18/16 [History] Potassium Chloride [Klor-Con 10] 20 meq PO DAILY 10/18/16 [History] Sertraline [Zoloft] 100 mg PO DAILY 10/18/16 [History] Tiotropium [Spiriva] 18 mcg IH DAILY 10/18/16 [History] diazePAM [Valium] 10 mg PO BID 10/18/16 [History] Ezetimibe/Simvastatin [Vytorin 10-20 mg Tablet] 1 tab PO DAILY 08/15/17 [History ] Metoprolol [Lopressor] 25 mg PO BID 08/15/17 [History] 3 Allergy/AdvReac Type Severity Reaction Status Date / Time codeine Allergy Hives Verified 10/18/16 10:11 iodine Allergy Hives Verified 10/18/16 10:11 methotrexate Allergy Hives Verified 10/18/16 10:11 All Systems Review: A 10-system review of systems was performed and is negative for pertinent findings except as documented above in the HPI. - Cardiovascular Cardiovascular: as per HPI, chest pain at rest, diaphoresis, dyspnea at rest - Respiratory Respiratory: dyspnea - Neurological Neurological: focal weakness Physical Examination Vital Signs Temp Pulse Resp BP Pulse Ox 08/16/17 07:00 98.2 F 100 18 117/71 96 08/16/17 04:42 87 17 127/69 98 08/15/17 19:04 97.9 F 100 17 148/94 98 08/15/17 17:16 98.3 F 85 16 87/69 93 08/15/17 16:32 63 24 110/72 96 Intake and Output 08/15/17 08/16/17 08/16/17 23:59 07:59 15:59 Intake Total 500 / 500 1000 / 1000 200 / 200 Balance 500 / 500 1000 / 1000 200 / 200 Intake: IV Fluids 500 / 500 1000 / 1000 0.9 % Sodium Chloride 1,000 ML 1000 / 1000 @ 125 mls/hr IVC .Q8H [facility] Rx#: [id number] 0.9 % Sodium Chloride 500 ML @ 500 / 500 1875 mls/hr IVC .Q16M ONE Rx#: [id number] Oral 200 / 200 Other: Meal Breakfast Percent of Meal Consumed 50% General: Conversant, No Apparent Distress HEENT: Atraumatic, Normocephaly, Mucus Membranes Moist Neck: No JVD, Normal carotid pulses Cardiac: Other (irregular) Lungs: Other (diminished) Neuro: Alert and responsive, Other (seems confused at times) Abdomen: Soft, Non-Tender Skin: No rashes noted on visualized skin Musculoskeletal: No Chest Wall Tenderness Extremities: No Clubbing, No Cyanosis, No Edema, Normal Pulses Results 08/16/17 01:30 08/16/17 01:30 Lab Results 08/16/17 08/16/17 08/16/17 01:30 01:30 01:30 WBC 14.8 H D Hgb 10.5 L D Hct 33.2 L Plt Count 200 Sodium 139 Potassium 4.7 H D Chloride 111 H Carbon Dioxide 19 BUN 21 H Creatinine 1.21 H Glucose 117 H Calcium 9.3 Magnesium 1.7 Troponin I 0.80 H* 08/16/17 09:15 WBC Hgb Hct Plt Count Sodium Potassium Chloride Carbon Dioxide BUN Creatinine Glucose Calcium Magnesium Troponin I 0.68 H* Short CBC 08/16/17 08/15/17 Range/Units 01:30 14:43 WBC 14.8 H D 30.0 H* (4.3-11.1) K/mcL Hgb 10.5 L D 12.3 (11.5-15.4) g/dL Hct 33.2 L 39.0 (35.3-44.9) % Plt Count 200 233 (140-400) K/mcL Neutrophils # 12.9 H 27.6 H (1.6-8.9) K/mcL BMP 08/16/17 Range/Units 01:30 Sodium 139 (136-145) mEq/L Potassium 4.7 H D (3.5-4.5) mEq/L Chloride 111 H (98-109) mEq/L Carbon Dioxide 19 (19-29) mEq/L BUN 21 H (7-20) mg/dL Creatinine 1.21 H (0.57-1.11) mg/dL Glucose 117 H (70-99) mg/dL Calcium 9.3 (8.6-10.8) mg/dL Cardiac Enzymes 08/16/17 08/16/17 Range/Units 09:15 01:30 Troponin I 0.68 H* 0.80 H* (0-0.03) ng/mL Urine 08/15/17 Range/Units 15:42 Urine Color Aileen A (Yellow) Urine Clarity Cloudy A (Clear) Urine pH 5.0 (5.0-8.0) pH Units Ur Specific [place] 1.030 H (1.010-1.025) Urine Protein 100 H (Neg-Trace) mg/dL Urine Glucose (UA) Normal (Normal) mg/dL Impressions Abdomen/Pelvis CT 08/15/17 13:35 IMPRESSION: No acute abdominal abnormality identified. 2 stable cysts in the upper pole of the left kidney unchanged. 3 small nonobstructing calculi in the upper pole of the right kidney unchanged. Small hiatal hernia. Large amount of fluid in the stomach. 2 cm metallic density in the stomach which was not present on abdominal film of 12/29/2015 but was seen in the stomach on the CT chest of 10/21/2016. The exact nature of this structure is uncertain, presumed ingested. D/ / Duane Ponce MD / Duane Ponce MD Interpreting Provider: Duane Ponce MD Chest CTA 08/15/17 13:35 IMPRESSION: 1. No evidence of pulmonary embolism or aortic dissection. 2. Hazy ground-glass opacity throughout both lungs, with interlobular septal thickening. This is a nonspecific finding. It can be seen in the setting of pulmonary edema. Atypical pneumonia is also considered. Given the bronchial wall thickening, also consider acute and/or chronic bronchitis. D/ / Ivan Flores MD / Ivan Flores MD Interpreting Provider: Ivan Flores MD Active Medications Acetaminophen (Tylenol) 650 mg PO Q6HR PRN PRN Reason: Mild Pain (1-3), headache Stop: 02/14/18 20:12 Last Admin: 08/15/17 22:18 Dose: 650 mg Hydrocodone Bitart/Acetaminophen (Silas 5-325 Mg) 1 tab PO Q6HR PRN PRN Reason: Pain Stop: 02/15/18 00:26 Last Admin: 08/16/17 10:04 Dose: 1 tab Albuterol Sulfate (Proventil Neb) 2.5 mg IH [id number] PRN; Protocol PRN Reason: Shortness Of Breath/Wheezing Stop: 02/14/18 20:17 Diazepam (Valium) 10 mg PO BID MAR Stop: 02/14/18 21:01 Last Admin: 08/16/17 09:59 Dose: 10 mg Heparin Sodium (Porcine) (Heparin) 5,000 unit SQ Q8HR [facility] Stop: 02/15/18 00:01 Last Admin: 08/16/17 09:58 Dose: 5,000 unit Sodium Chloride (0.9 % Sodium Chloride) 1,000 mls @ 125 mls/hr IVC .Q8H [facility] Stop: 02/14/18 20:16 Last Admin: 08/16/17 06:28 Dose: 125 mls/hr Ceftriaxone Sodium 2,000 mg/ (Dextrose) 100 mls @ 200 mls/hr IVPB Q24H [facility] Stop: 02/14/18 21:01 Last Admin: 08/15/17 22:20 Dose: 200 mls/hr Isosorbide Mononitrate (Imdur) 30 mg PO DAILY [facility] Stop: 02/15/18 09:01 Last Admin: 08/16/17 09:58 Dose: 30 mg Melatonin (Melatonin) 3 mg PO HS [facility] Stop: 02/14/18 21:01 Last Admin: 08/15/17 22:18 Dose: 3 mg Metoprolol Tartrate (Lopressor) 25 mg PO BID [facility] Stop: 02/15/18 09:01 Last Admin: 08/16/17 09:58 Dose: 25 mg Naloxone HCl (Narcan) 0.4 mg IVP Q2MIN PRN PRN Reason: Opioid Reversal Stop: 02/14/18 20:12 Nitroglycerin (Nitroglycerin) 0.4 mg SL AD PRN PRN Reason: Chest Pain Stop: 02/14/18 20:15 Omeprazole (Prilosec) 20 mg PO BIDAC [facility] PRN Reason: Protocol Stop: 02/15/18 07:31 Last Admin: 08/16/17 09:59 Dose: 20 mg Ondansetron HCl (Zofran) 4 mg IVP Q6HR PRN PRN Reason: Nausea And Vomiting Stop: 02/14/18 20:12 Last Admin: 08/15/17 22:18 Dose: 4 mg Sertraline HCl (Zoloft) 100 mg PO DAILY [facility] Stop: 02/15/18 09:01 Last Admin: 08/16/17 09:59 Dose: 100 mg Tiotropium [place] (Spiriva) 18 mcg IH DAILY [facility] Stop: 02/15/18 09:01 Last Admin: 08/16/17 10:12 Dose: Not Given - Imaging and Cardiology Stress Test: report reviewed Echo: report reviewed Cardiac cath: report reviewed - EKG Interpretation EKG results cardiology: personally reviewed (paced) Consult Discharge Plan - Plan Referrals: Michael Agudelo MD [Primary Care Provider] - <Morgan Melo - Last Filed: 08/16/17 16:04> Date of Encounter: 08/16/17 - Attending Attestation I have personally performed a face to face evaluation on this patient. I have reviewed and agree with the care plan. History and Exam by me shows: Mild elevation in troponin in setting of urosepsis. Would check echo, continue medical mgmt. Assessment and Plan Discussion w patient/family: The assessment and plan as outlined above was discussed with the patient and/or family members who expressed understanding and agreement. All questions were answered. Thank you for involving us in the care of your patient. Please call with any questions. History of Present Illness History of present illness: Ms. Chaidez is a 77 year old female All Systems Review: A 10-system review of systems was performed and is negative for pertinent findings except as documented above in the HPI. Physical Examination Vital Signs, Last 4 Hours Pulse BP Pulse Ox 08/16/17 15:52 78 106/79 98 Results 08/16/17 01:30 08/16/17 01:30 Lab Results 08/16/17 08/16/17 08/16/17 01:30 01:30 01:30 WBC 14.8 H D Hgb 10.5 L D Hct 33.2 L Plt Count 200 Sodium 139 Potassium 4.7 H D Chloride 111 H Carbon Dioxide 19 BUN 21 H Creatinine 1.21 H Glucose 117 H Calcium 9.3 Magnesium 1.7 Troponin I 0.80 H* 08/16/17 08/16/17 09:15 14:58 WBC Hgb Hct Plt Count Sodium Potassium Chloride Carbon Dioxide BUN Creatinine Glucose Calcium Magnesium Troponin I 0.68 H* 0.54 H*
[2017-08-16] MEDS ORDERED: Isosorbide MONOnitrate (24 HR) 30 MG TAB.ER.24H PO ONE (14:58)
[2017-08-16] MEDS ORDERED: Vancomycin 1,000 MG in D5% in Water 250 ML IVPB ONE (18:00)
[2017-08-16] MEDS: Melatonin 3 MG TABLET PO SCH (22:14)
[2017-08-17] MEDS: 0.9 % Sodium Chloride 1,000 ML IVC SCH ×2 (00:08→08:53)
[2017-08-17] MEDS: *HR* Heparin 5,000 UNIT/ML VIAL SQ SCH ×4 (00:08→22:24)
[2017-08-17 05:08] LABS: Basophils % 0.3 %; Eosinophils # 0.1 K/mcL (0.0-0.6); Eosinophils % 1.1 %; Hematocrit 29.4 % (35.3-44.9); Hemoglobin 9.1 g/dL (11.5-15.4); Immature Granulocytes % 0.4 % (0-4); Lymphocytes # 2.6 K/mcL (0.6-4.6); Lymphocytes % 20.7 %; Mean Corpuscular Hemoglobin 26.9 pg (28.0-33.3); Mean Platelet Volume 11.1 fL (9.4-12.4); Monocytes % 8.3 %; Neutrophils # 8.5 K/mcL (1.6-8.9); Platelet Count 175 K/mcL (140-400); Red Blood Count 3.38 M/mcL (3.82-4.97); Red Cell Distribution Width 14.6 % (11.5-14.5); Segmented Neutrophils % 69.2 %
[2017-08-17 05:26] LABS: BUN/Creatinine Ratio 22 (6-26); Blood Urea Nitrogen 18 mg/dL (7-20); Calcium 8.7 mg/dL (8.6-10.8); Carbon Dioxide 20 mEq/L (19-29); Chloride 111 mEq/L (98-109); Glucose 96 mg/dL (70-99); Osmolality,Calculated 288 (280-300); Potassium 4.1 mEq/L (3.5-4.5); Sodium 138 mEq/L (136-145); eGFR For African Americans > 60 (> 60); eGFR For Non-African Americans > 60 (> 60)
[2017-08-17] MEDS: Tiotropium 18 MCG inhalation IH SCH (07:56)
--- NOTE | 2017-08-17 08:27 | Discharge Summary ---
Date of Encounter: 08/17/17 Time of Encounter: 08:24 - Discharge Diagnosis (1) Elevated troponin level Priority: Primary Status: Acute (2) UTI (urinary tract infection) Priority: Primary Status: Acute Qualifiers: Urinary tract infection type: site unspecified Hematuria presence: without hematuria Qualified Code(s): N39.0 - Urinary tract infection, site not specified (3) Acute on chronic renal failure Priority: Primary Status: Acute Qualifiers: Acute renal failure type: unspecified Chronic kidney disease stage: stage 3 (moderate) Qualified Code(s): N17.9 - Acute kidney failure, unspecified; N18.3 - Chronic kidney disease, stage 3 (moderate); N18.3 - Chronic kidney disease, stage 3 (moderate) (4) Severe sepsis Priority: Primary Status: Resolved (5) TIA (transient ischemic attack) Priority: Primary Status: Suspected Qualifiers: Transient cerebral ischemia type: unspecified Qualified Code(s): G45.9 - Transient cerebral ischemic attack, unspecified - Discharge Medications Prescriptions: Nitrofurantoin (BID) [Macrobid] 100 mg PO BID #10 capsule Home Medications: Aspirin Enteric Coated [Aspirin EC] 325 mg PO DAILY 10/21/15 [History] Ergocalciferol (VITAMIN D2) [Drisdol (50,000 Unit)] 50,000 unit PO QWEEK [History] Isosorbide MONOnitrate (24 HR) [Imdur] 30 mg PO DAILY 10/21/15 [History] Omeprazole [PriLOSEC] 20 mg PO BIDAC 10/21/15 [History] HYDROcodone/Acet 5/325 mg [[place] 5-325 mg] 1 tab PO Q6HR PRN #15 tablet [Rx] Losartan [Cozaar] 12.5 mg PO DAILY tablet 01/12/16 [Rx] Lovastatin [Mevacor] 20 mg PO HS tablet 01/12/16 [Rx] Albuterol Sulfate [Proair Hfa] 2 puff IH Q4H PRN 10/18/16 [History] Budesonide/Formoterol 160/4.5 [Symbicort 160/4.5] 1 puff IH DAILY 10/18/16 [ History] Donepezil HCl [Aricept] 10 mg PO DAILY 10/18/16 [History] Folic Acid 0.4 mg PO DAILY 10/18/16 [History] Furosemide [Lasix] 10 mg PO DAILY 10/18/16 [History] Gabapentin [Neurontin] 300 mg PO TID 10/18/16 [History] Ipratropium [ATROVENT Inhaler] 1 puff IH DAILY 10/18/16 [History] Melatonin [Melatin] 3 mg PO HS 10/18/16 [History] Nitroglycerin [Nitrostat] 0.4 mg SL AD PRN 10/18/16 [History] Ondansetron HCl [Zofran] 4 mg PO TID PRN 10/18/16 [History] Oxygen 1 each .ROUTE AD 10/18/16 [History] Potassium Chloride [Klor-Con 10] 20 meq PO DAILY 10/18/16 [History] Sertraline [Zoloft] 100 mg PO DAILY 10/18/16 [History] Tiotropium [Spiriva] 18 mcg IH DAILY 10/18/16 [History] diazePAM [Valium] 10 mg PO BID 10/18/16 [History] Ezetimibe/Simvastatin [Vytorin 10-20 mg Tablet] 1 tab PO DAILY 08/15/17 [History ] Metoprolol [Lopressor] 25 mg PO BID 08/15/17 [History] Nitrofurantoin (BID) [Macrobid] 100 mg PO BID #10 capsule 08/17/17 [Rx] Allergies/Adverse Reactions: 3 Allergy/AdvReac Type Severity Reaction Status Date / Time codeine Allergy Hives Verified 10/18/16 10:11 iodine Allergy Hives Verified 10/18/16 10:11 methotrexate Allergy Hives Verified 10/18/16 10:11 Procedures/tests Complete & Pending: Procedures Performed prior 72 hours Category Date Time Status EV echocardiogram Routine Y 08/16/17 14:59 Completed Date of admission: 08/15/17 20:11 Primary care physician: Michael Agudelo MD Consults: 08/16/17 11:46 Consult to Cardiology [CONS] Routine Comment: Consulting Provider: Cardiology Nora Reason for Consult: elevated troponin (trending down), symptom free; h/o HTN , CAD, tachy-kimberlyn syndrome, CHF and has a pacemaker implanted Time Notified: 11:48 Call Completed: Yes Discharging clinician: Isatu Aly Anticipated date of discharge: 08/17/17 - Patient Status Disposition: Home, Self-Care Condition: Good Functional capacity at discharge: uses cane/walker Overall status at discharge: patient is back to baseline - Discharge Instructions Instructions: Urinary Tract Infection in Women (DC) Follow Up With: Michael Agudelo MD [Primary Care Provider] - - Diet and Activity Diet: low fat, low cholesterol Interval History: States she is "stiff as a board" today due to the uncomfortable hospital bed. Otherwise, she states she is doing well. Hospital course: Ms. Chaidez is a 77 year old female admitted with severe sepsis due to UTI. Her initial lactate was 4.9. She presented to the ER with stroke like symptoms including slurred speech and weakness of her left extremities, although slurred speech was not noted in the ER and her NIH stroke scale was 0. It is possible she had a TIA. She had DIMITRI on CKD, stage 3. She also had an elevated tropnin that peaked at 0.8 before trending down. She was evaluated by cardiology, who she follows with outpatient. She received an echo inpatient and will follow-up outpatient. Her UTI was treated with rocephin inpatient and she is being discharged with macrobid 5 days to complete 7 days of antibiotic therapy. - Time Spent with Patient Total time spent providing and/or coordinating discharge services: - Constitutional Vitals: Temp Pulse Resp BP Pulse Ox 97.5 F L 89 18 116/68 95 08/17/17 07:19 08/17/17 07:19 08/17/17 07:19 08/17/17 07:19 08/17/17 07:19 General appearance: Present: A&O X 3, no acute distress, answers questions appropriately - Head Head exam: Present: atraumatic, normocephalic - Eye Eye exam: Present: PERRL, conjuntiva pink, sclera anicteric Pupils: Present: PERRL - Neck Neck exam general surgery: Present: supple, trachea midline - Respiratory Respiratory exam: Present: CTAB. Absent: accessory muscle use, rales, rhonchi, wheezes - Cardiovascular Cardiovascular exam: Present: RRR, +S1, +S2. Absent: diastolic murmur, gallop, rubs, systolic murmur - GI/Abdominal GI/Abdominal exam: Present: normal bowel sounds, soft, no peritoneal signs. Absent: distended, tenderness - Extremities Exam Extremities exam: Present: warm. Absent: calf tenderness, cyanotic, pedal edema - Neurological Exam Neurological exam: Present: CN II-XII intact, oriented X3, no focal deficits. Absent: pronater drift, facial droop, speech deficit - Skin Skin exam: Present: dry, intact, warm
[2017-08-17] MEDS: diazePAM 10 MG TABLET PO SCH ×2 (08:54→22:22)
[2017-08-17] MEDS: Isosorbide MONOnitrate (24 HR) 30 MG TAB.ER.24H PO SCH (08:54)
[2017-08-17] MEDS: *HR* HYDROcodone/Acet 5/325 mg TABLET PO PRN ×2 (08:56→17:27)
[2017-08-17] MEDS ORDERED: Aspirin 81 MG TAB.CHEW PO SCH (09:00)
--- NOTE | 2017-08-17 10:29 | Internal Med Progress Note ---
<Isatu Aly - Last Filed: 08/17/17 10:26> Date of Encounter: 08/17/17 Time of Encounter: 10:29 - Assessment and plan (1) Elevated troponin level Current Visit: Yes Status: Acute Assessment and plan: echo: severe LV systolic dysfunction, EF 25%. Severe hypokinesis to akinesis of all mid-apical myocardial segments. Mildly dilated right ventricle. 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 Severely dilated left atrium. Bioprosthetic aortic valve. Moderate-severe mitral regurgitation. Mild- moderate pulmonary HTN. RVSP = 49. plan for [facility] tomorrow or Saturday complaint of vague chest pain on admission, currently chest pain free peak of 0.8, trending down cardiology consulted; appreciate recommendations (2) UTI (urinary tract infection) Current Visit: No Status: Acute Assessment and plan: Urine culture E. Coli sensitive to rocephin and macrobid continue rocephin while inpatient, will discharge on macrobid Qualifiers: Urinary tract infection type: site unspecified Hematuria presence: without hematuria Qualified Code(s): N39.0 - Urinary tract infection, site not specified (3) Acute on chronic renal failure Current Visit: Yes Status: Acute Assessment and plan: baseline Cr appears to be around 1 avoid nephrotoxins as able renally dose medications if necessary Qualifiers: Acute renal failure type: unspecified Chronic kidney disease stage: stage 3 (moderate) Qualified Code(s): N17.9 - Acute kidney failure, unspecified; N18.3 - Chronic kidney disease, stage 3 (moderate); N18.3 - Chronic kidney disease, stage 3 (moderate) (4) Severe sepsis Current Visit: Yes Status: Resolved Assessment and plan: resolved severe sepsis on admission with lactate 4.9 (5) TIA (transient ischemic attack) Current Visit: Yes Status: Suspected Assessment and plan: suspected patient history of weakness and slurred speech NIH stroke scale of 0 in the ER no focal deficits on exam Qualifiers: Transient cerebral ischemia type: unspecified Qualified Code(s): G45.9 - Transient cerebral ischemic attack, unspecified - Subjective Interval history: Patient states she is "stiff as a board" from the uncomfortable hospital bed, but otherwise doing well. - Constitutional Vitals: Temp Pulse Resp BP Pulse Ox 97.5 F L 89 18 116/68 98 08/17/17 07:19 08/17/17 07:19 08/17/17 07:19 08/17/17 07:19 08/17/17 09:00 General appearance: Present: A&O X 3, no acute distress, answers questions appropriately - Head Head exam: Present: atraumatic, normocephalic - Eye Eye exam: Present: PERRL, conjuntiva pink, sclera anicteric Pupils: Present: PERRL - Neck Neck exam general surgery: Present: supple, trachea midline - Respiratory Respiratory exam: Present: CTAB. Absent: accessory muscle use, rales, rhonchi, wheezes - Cardiovascular Cardiovascular exam: Present: RRR, +S1, +S2. Absent: diastolic murmur, gallop, rubs, systolic murmur - GI/Abdominal GI/Abdominal exam: Present: normal bowel sounds, soft, no peritoneal signs. Absent: distended, tenderness - Extremities Exam Extremities exam: Present: warm. Absent: calf tenderness, cyanotic, pedal edema - Neurological Exam Neurological exam: Present: CN II-XII intact, oriented X3, no focal deficits. Absent: pronater drift, facial droop, speech deficit - Skin Skin exam: Present: dry, intact, warm Internal Medicine: Result - Labs CBC & Chem 7: 08/17/17 04:08 08/17/17 04:08 Labs: Short CBC 08/17/17 Range/Units 04:08 WBC 12.3 H (4.3-11.1) K/mcL Hgb 9.1 L (11.5-15.4) g/dL Hct 29.4 L (35.3-44.9) % Plt Count 175 (140-400) K/mcL Neutrophils # 8.5 (1.6-8.9) K/mcL BMP 08/17/17 04:08 Sodium 138 Potassium 4.1 Chloride 111 H Carbon Dioxide 20 BUN 18 Creatinine 0.83 Glucose 96 Calcium 8.7 Cardiac Enzymes 08/16/17 Range/Units 14:58 Troponin I 0.54 H* (0-0.03) ng/mL - Impressions Impressions Echocardiogram 08/16/17 14:59 Impressions: Incomplete study. Not all standard images were obtained. Severe LV systolic dysfunction, LVEF 25%. There is severe hypokinesis to akinesis of all mid-apical myocardial segments. Mildly dilated right ventricle. There is severe hypokinesis to akinesis of the mid-apical right ventricle. 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 Severely dilated left atrium. No evidence of intracardiac shunting with agitated saline contrast. Bioprosthetic aortic valve. The valve is functioning normally. No aortic stenosis. Trace aortic regurgitation. Status-post mitral valve repair. Mild mitral stenosis (mean gradient 5 mmHg). Moderate-severe mitral regurgitation. Status-post tricuspid valve repair. No tricuspid stenosis. Mild tricuspid regurgitation. Mild-moderate pulmonary hypertension. Estimated RVSP = 49 mmHg. Abnormal results were communicated to the inpatient cardiology consult service. Left Ventricular Wall Motion: Rest Echo Findings The apex, apical inferior, mid inferior, apical anterior, mid anterior, apical septal, mid inferior septal, apical lateral, mid anterior lateral, mid anterior septal and mid inferior lateral minor were akinetic. All other wall segments showed normal motion. Findings: Study Quality * Incomplete study. Not all standard images were obtained. ECG Findings * Sinus rhythm with intermittent ventricular pacing. Left Ventricle * Severe LV systolic dysfunction, LVEF 25%. There is severe hypokinesis to akinesis of all mid-apical myocardial segments. * Normal LV chamber size and wall thickness. * Indeterminate diastolic function. Right Ventricle * Mildly dilated right ventricle. There is severe hypokinesis to akinesis of the mid-apical right ventricle. Device lead * A device lead was visualized in the right atrium and right ventricle. Left Atrium * Severely dilated left atrium. Right Atrium * Normal right atrial size. Interatrial Septum * No evidence of intracardiac shunting with agitated saline contrast. Aorta * Aortic root not well visualized. It appears normal in size. Pericardium * There is no pericardial effusion present. IVC * The IVC is not dilated. Aortic Valve * Bioprosthetic aortic valve. The valve is functioning normally. No aortic stenosis. Trace aortic regurgitation. * No aortic stenosis. * Trace aortic regurgitation. Mitral Valve * Status-post mitral valve repair. Mild mitral stenosis (mean gradient 5 mmHg). Moderate-severe mitral regurgitation. * Mild mitral annular calcification Tricuspid Valve * Status-post tricuspid valve repair. No tricuspid stenosis. Mild tricuspid regurgitation. * Mild-moderate pulmonary hypertension. Estimated RVSP = 49 mmHg. Pulmonic Valve * Pulmonic valve was not visualized. Function not assessed. Consult Discharge Plan - Plan Instructions: Urinary Tract Infection in Women (DC) Referrals: Michael Agudelo MD [Primary Care Provider] - Prescriptions: Nitrofurantoin (BID) [Macrobid] 100 mg PO BID #10 capsule <Tyler Acosta P - Last Filed: 08/17/17 13:20> Date of Encounter: 08/17/17 - Constitutional Vitals: Temp Pulse Resp BP Pulse Ox 97.8 F 62 18 106/63 99 08/17/17 11:50 08/17/17 11:50 08/17/17 11:50 08/17/17 11:50 08/17/17 11:50 Internal Medicine: Result - Labs CBC & Chem 7: 08/17/17 04:08 08/17/17 04:08 Labs: Short CBC 08/17/17 Range/Units 04:08 WBC 12.3 H (4.3-11.1) K/mcL Hgb 9.1 L (11.5-15.4) g/dL Hct 29.4 L (35.3-44.9) % Plt Count 175 (140-400) K/mcL Neutrophils # 8.5 (1.6-8.9) K/mcL BMP 08/17/17 04:08 Sodium 138 Potassium 4.1 Chloride 111 H Carbon Dioxide 20 BUN 18 Creatinine 0.83 Glucose 96 Calcium 8.7 Cardiac Enzymes 08/16/17 Range/Units 14:58 Troponin I 0.54 H* (0-0.03) ng/mL - Impressions Impressions Echocardiogram 08/16/17 14:59 Impressions: Incomplete study. Not all standard images were obtained. Severe LV systolic dysfunction, LVEF 25%. There is severe hypokinesis to akinesis of all mid-apical myocardial segments. Mildly dilated right ventricle. There is severe hypokinesis to akinesis of the mid-apical right ventricle. 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 Severely dilated left atrium. No evidence of intracardiac shunting with agitated saline contrast. Bioprosthetic aortic valve. The valve is functioning normally. No aortic stenosis. Trace aortic regurgitation. Status-post mitral valve repair. Mild mitral stenosis (mean gradient 5 mmHg). Moderate-severe mitral regurgitation. Status-post tricuspid valve repair. No tricuspid stenosis. Mild tricuspid regurgitation. Mild-moderate pulmonary hypertension. Estimated RVSP = 49 mmHg. Abnormal results were communicated to the inpatient cardiology consult service. Left Ventricular Wall Motion: Rest Echo Findings The apex, apical inferior, mid inferior, apical anterior, mid anterior, apical septal, mid inferior septal, apical lateral, mid anterior lateral, mid anterior septal and mid inferior lateral minor were akinetic. All other wall segments showed normal motion. Findings: Study Quality * Incomplete study. Not all standard images were obtained. ECG Findings * Sinus rhythm with intermittent ventricular pacing. Left Ventricle * Severe LV systolic dysfunction, LVEF 25%. There is severe hypokinesis to akinesis of all mid-apical myocardial segments. * Normal LV chamber size and wall thickness. * Indeterminate diastolic function. Right Ventricle * Mildly dilated right ventricle. There is severe hypokinesis to akinesis of the mid-apical right ventricle. Device lead * A device lead was visualized in the right atrium and right ventricle. Left Atrium * Severely dilated left atrium. Right Atrium * Normal right atrial size. Interatrial Septum * No evidence of intracardiac shunting with agitated saline contrast. Aorta * Aortic root not well visualized. It appears normal in size. Pericardium * There is no pericardial effusion present. IVC * The IVC is not dilated. Aortic Valve * Bioprosthetic aortic valve. The valve is functioning normally. No aortic stenosis. Trace aortic regurgitation. * No aortic stenosis. * Trace aortic regurgitation. Mitral Valve * Status-post mitral valve repair. Mild mitral stenosis (mean gradient 5 mmHg). Moderate-severe mitral regurgitation. * Mild mitral annular calcification Tricuspid Valve * Status-post tricuspid valve repair. No tricuspid stenosis. Mild tricuspid regurgitation. * Mild-moderate pulmonary hypertension. Estimated RVSP = 49 mmHg. Pulmonic Valve * Pulmonic valve was not visualized. Function not assessed. - Attending Attestation I examined this patient and my medical decision-making was reviewed with the Resident Physician. I agree with the documented findings, disposition and treatment plan as described except to the extent set forth below. Patient seen and examined. Chart reviewed. Echo finding noted. Cardiology input appreciated. Likely for cardiac catheterization tomorrow/Saturday.
--- NOTE | 2017-08-17 13:04 | Cardiology Progress Note ---
Date of Encounter: 08/17/17 Time of Encounter: 13:00 Assessment and Plan (1) Cardiomyopathy Current Visit: Yes Status: Acute Echo rechecked--Severe LV systolic dysfunction, LVEF 25%. There is severe hypokinesis to akinesis of all mid-apical myocardial segments.Mildly dilated right ventricle. There is severe hypokinesis to akinesis of the mid-apical right ventricle. 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 Moderate-severe mitral regurgitation. She has hx of PCI, TID on stress 11/2016, and now a newly decrease EF, consistent with takotsubo. Recommend [facility] for further evaluation to rule out ischemic cause. R/B/A discussed. Pt is in agreement. Plan for [facility] either Saturday or Saturday. Pt is euvolemic on exam--stop IV fluids running at 125mg/hr to prevent fluid overload. Renal function has normalized. Continue BB--switch to Toprol. If renal function will tolerate, add ACEi/ARB prior to discharge. Will not add yet since planning for [facility]. Qualifiers: Cardiomyopathy type: unspecified Qualified Code(s): I42.9 - Cardiomyopathy , unspecified (2) Elevated troponin level Current Visit: Yes Status: Acute Peak troponin 0.80, downtrended to 0.68, 0.53 in setting of sepsis, UTI, and DIMITRI. Suspect demand ischemia, nondiagnostic for ACS. Pt reports occasional chest pain, bilateral shoulder pain. Echo 10/2016 EF was 70%. Echo rechecked--Severe LV systolic dysfunction, LVEF 25%. There is severe hypokinesis to akinesis of all mid-apical myocardial segments.Mildly dilated right ventricle. There is severe hypokinesis to akinesis of the mid-apical right ventricle. 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 Moderate-severe mitral regurgitation. She has hx of PCI, TID on stress 11/2016, and now a newly decrease EF, consistent with takotsubo. Recommend [facility] for further evaluation to rule out ischemic cause. R/B/A discussed. Pt is in agreement. Plan for [facility] either Saturday or Saturday. (3) Chest pain Current Visit: Yes Status: Acute Pt reports occasional chest pain at home as well. Follows with Dr. Escalona. Peak troponin 0.8, downtrended to 0.53 but in setting of sepsis, UTI and DIMITRI-- nondiagnostic for ACS. EKG paced rhythm. Pt had a stress test in November that was negative for ischemia or infarct but showed visual evidence of TID. As above, EF newly decreased to 25%, previously 70%. Recommend [facility], which pt agrees to. Continue ASA, Statin, BB, Imdur. Qualifiers: Chest pain type: unspecified Qualified Code(s): R07.9 - Chest pain, unspecified (4) History of aortic valve replacement with bioprosthetic valve Current Visit: No Status: Chronic Bioprosthetic aortic valve. Echo--The valve is functioning normally. No aortic stenosis. Trace aortic regurgitation. (5) Afib Current Visit: No Status: Chronic Known A-Fib. Paced rhythm. Not anticoagulated due to hx of GI bleed and falls risk. Qualifiers: Atrial fibrillation type: unspecified Qualified Code(s): I48.91 - Unspecified atrial fibrillation (6) CAD (coronary artery disease) Current Visit: No Status: Acute Hx of LAD stent. [facility] 2013 showed stable coronaries and patent stent. ASA, statin , BB, Imdur. Qualifiers: Coronary Disease-Associated Artery/Lesion type: [place] artery [place] vs. transplanted heart: [place] heart Associated angina: without angina Qualified Code(s): I25.10 - Atherosclerotic heart disease of [place] coronary artery without angina pectoris (7) Mitral regurgitation Current Visit: Yes Status: Acute Status-post mitral valve repair. Mild mitral stenosis (mean gradient 5 mmHg). Moderate-severe mitral regurgitation. Recommend [facility] to r/o ischemic MR. Qualifiers: Cardiac valve disease etiology: etiology unspecified Qualified Code(s): I34.0 - Nonrheumatic mitral (valve) insufficiency (8) Anemia Current Visit: Yes Status: Acute Known hx of chronic anemia. HGB 12.3 on admission, now 9.1. Hx of GI bleed, but pt denies active bleeding. Suspect HGB drop is dilutional as IV fluids are currently running at 125mg/hr. Will d/c fluids since pt has reduced EF to prevent fluid overload. Qualifiers: Anemia type: unspecified type Qualified Code(s): D64.9 - Anemia, unspecified Discussion w patient/family: The assessment and plan as outlined above was discussed with the patient and/or family members who expressed understanding and agreement. All questions were answered. Thank you for involving us in the care of your patient. Please call with any questions. I will discuss all the above with Dr. Hanna Melo and make changes as necessary. Subjective Principal diagnosis: CHF, CMP Interval history: Echo resulted--EF previously normal, now with Severe LV systolic dysfunction, LVEF 25%. There is severe hypokinesis to akinesis of all mid-apical myocardial segments.Mildly dilated right ventricle. There is severe hypokinesis to akinesis of the mid-apical right ventricle. 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 Severely dilated left atrium. Bioprosthetic aortic valve. The valve is functioning normally. No aortic stenosis. Trace aortic regurgitation. Status-post mitral valve repair. Mild mitral stenosis (mean gradient 5 mmHg). Moderate-severe mitral regurgitation. Status-post tricuspid valve repair. No tricuspid stenosis. Mild tricuspid regurgitation. Mild-moderate pulmonary hypertension. Estimated RVSP = 49 mmHg. Pt denies chest pain currently. Has had intermittent chest and shoulder pain during inpt stay. Objective Vital Signs, Last 4 Hours Temp Pulse Resp BP Pulse Ox 08/17/17 11:50 97.8 F 62 18 106/63 99 08/17/17 09:00 98 Vital Signs Temp Pulse Resp BP Pulse Ox 08/17/17 11:50 97.8 F 62 18 106/63 99 08/17/17 09:00 98 08/17/17 07:19 97.5 F L 89 18 116/68 95 08/17/17 04:00 97.6 F 97 16 111/81 99 08/16/17 22:59 97.6 F 87 18 115/75 99 08/16/17 19:04 97.8 F 88 19 125/74 95 08/16/17 15:52 78 106/79 98 Intake and Output 08/16/17 08/17/17 08/17/17 23:59 07:59 15:59 Intake Total 2600 / 2600 100 / 100 1240 / 1240 Output Total 150 / 150 100 / 100 Balance 2450 / 2450 0 / 0 1240 / 1240 Intake: IV Fluids 1000 / 1000 100 / 100 1000 / 1000 0.9 % Sodium Chloride 1,000 ML 1000 / 1000 1000 / 1000 @ 125 mls/hr IVC .Q8H [facility] Rx#: [id number] Rocephin 2,000 MG In Dextrose 5 100 / 100 % (Minibag+) 100 ML 100 ML @ 200 mls/hr IVPB Q24H [facility] Rx#: [id number] Oral 1600 / 1600 0 / 0 240 / 240 Output: Urine 150 / 150 100 / 100 Other: Meal Breakfast Percent of Meal Consumed 15% Weight 68.1 kg Patient Weight 08/17/17 23:59 Weight 68.1 kg General: Conversant, No Apparent Distress HEENT: Atraumatic, Normocephaly, Mucus Membranes Moist Neck: No JVD, Normal carotid pulses Cardiac: Other (paced, 2/6 murmur) Lungs: Normal Breath Sounds, No Wheeze, Rales, Rhonchi Neuro: Alert and responsive, No focal deficits noted Abdomen: Soft, Non-Tender Skin: No rashes noted on visualized skin Musculoskeletal: No Chest Wall Tenderness Extremities: No Clubbing, No Cyanosis, No Edema, Normal Pulses Results 08/17/17 04:08 08/17/17 04:08 Lab Results 08/16/17 08/17/17 08/17/17 14:58 04:08 04:08 WBC 12.3 H Hgb 9.1 L Hct 29.4 L Plt Count 175 Sodium 138 Potassium 4.1 Chloride 111 H Carbon Dioxide 20 BUN 18 Creatinine 0.83 Glucose 96 Calcium 8.7 Troponin I 0.54 H* Short CBC 08/17/17 Range/Units 04:08 WBC 12.3 H (4.3-11.1) K/mcL Hgb 9.1 L (11.5-15.4) g/dL Hct 29.4 L (35.3-44.9) % Plt Count 175 (140-400) K/mcL Neutrophils # 8.5 (1.6-8.9) K/mcL BMP 08/17/17 Range/Units 04:08 Sodium 138 (136-145) mEq/L Potassium 4.1 (3.5-4.5) mEq/L Chloride 111 H (98-109) mEq/L Carbon Dioxide 20 (19-29) mEq/L BUN 18 (7-20) mg/dL Creatinine 0.83 (0.57-1.11) mg/dL Glucose 96 (70-99) mg/dL Calcium 8.7 (8.6-10.8) mg/dL Cardiac Enzymes 08/16/17 Range/Units 14:58 Troponin I 0.54 H* (0-0.03) ng/mL Impressions Echocardiogram 08/16/17 14:59 Impressions: Incomplete study. Not all standard images were obtained. Severe LV systolic dysfunction, LVEF 25%. There is severe hypokinesis to akinesis of all mid-apical myocardial segments. Mildly dilated right ventricle. There is severe hypokinesis to akinesis of the mid-apical right ventricle. 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 Severely dilated left atrium. No evidence of intracardiac shunting with agitated saline contrast. Bioprosthetic aortic valve. The valve is functioning normally. No aortic stenosis. Trace aortic regurgitation. Status-post mitral valve repair. Mild mitral stenosis (mean gradient 5 mmHg). Moderate-severe mitral regurgitation. Status-post tricuspid valve repair. No tricuspid stenosis. Mild tricuspid regurgitation. Mild-moderate pulmonary hypertension. Estimated RVSP = 49 mmHg. Abnormal results were communicated to the inpatient cardiology consult service. Left Ventricular Wall Motion: Rest Echo Findings The apex, apical inferior, mid inferior, apical anterior, mid anterior, apical septal, mid inferior septal, apical lateral, mid anterior lateral, mid anterior septal and mid inferior lateral minor were akinetic. All other wall segments showed normal motion. Findings: Study Quality * Incomplete study. Not all standard images were obtained. ECG Findings * Sinus rhythm with intermittent ventricular pacing. Left Ventricle * Severe LV systolic dysfunction, LVEF 25%. There is severe hypokinesis to akinesis of all mid-apical myocardial segments. * Normal LV chamber size and wall thickness. * Indeterminate diastolic function. Right Ventricle * Mildly dilated right ventricle. There is severe hypokinesis to akinesis of the mid-apical right ventricle. Device lead * A device lead was visualized in the right atrium and right ventricle. Left Atrium * Severely dilated left atrium. Right Atrium * Normal right atrial size. Interatrial Septum * No evidence of intracardiac shunting with agitated saline contrast. Aorta * Aortic root not well visualized. It appears normal in size. Pericardium * There is no pericardial effusion present. IVC * The IVC is not dilated. Aortic Valve * Bioprosthetic aortic valve. The valve is functioning normally. No aortic stenosis. Trace aortic regurgitation. * No aortic stenosis. * Trace aortic regurgitation. Mitral Valve * Status-post mitral valve repair. Mild mitral stenosis (mean gradient 5 mmHg). Moderate-severe mitral regurgitation. * Mild mitral annular calcification Tricuspid Valve * Status-post tricuspid valve repair. No tricuspid stenosis. Mild tricuspid regurgitation. * Mild-moderate pulmonary hypertension. Estimated RVSP = 49 mmHg. Pulmonic Valve * Pulmonic valve was not visualized. Function not assessed. Active Medications Acetaminophen (Tylenol) 650 mg PO Q6HR PRN PRN Reason: Mild Pain (1-3), headache Stop: 02/14/18 20:12 Last Admin: 08/15/17 22:18 Dose: 650 mg Hydrocodone Bitart/Acetaminophen (Hope 5-325 Mg) 1 tab PO Q6HR PRN PRN Reason: Pain Stop: 02/15/18 00:26 Last Admin: 08/17/17 08:56 Dose: 1 tab Albuterol Sulfate (Albuterol Inhaler) 2 puff IH [id number] PRN PRN Reason: Shortness Of Breath Stop: 02/16/18 12:01 Aspirin (Aspirin Ec) 81 mg PO DAILY MAR Stop: 02/17/18 09:01 Atorvastatin Calcium (Lipitor) 40 mg PO HS MAR Stop: 02/15/18 21:01 Last Admin: 08/16/17 22:14 Dose: 40 mg Budesonide/Formoterol Fumarate (Symbicort) 1 puff IH DAILY MAR PRN Reason: Protocol Stop: 02/17/18 09:01 Diazepam (Valium) 10 mg PO BID MAR Stop: 02/14/18 21:01 Last Admin: 08/17/17 08:54 Dose: 10 mg Donepezil HCl (Aricept) 10 mg PO DAILY MAR Stop: 02/17/18 09:01 Gabapentin (Neurontin) 300 mg PO TID MAR Stop: 02/16/18 15:01 Heparin Sodium (Porcine) (Heparin) 5,000 unit SQ Q8HR MAR Stop: 02/15/18 00:01 Last Admin: 08/17/17 08:57 Dose: 5,000 unit Ceftriaxone Sodium 2,000 mg/ (Dextrose) 100 mls @ 200 mls/hr IVPB Q24H [facility] Stop: 02/14/18 21:01 Last Infusion: 08/17/17 07:50 Dose: Infused Isosorbide Mononitrate (Imdur) 60 mg PO DAILY MAR Stop: 02/16/18 09:01 Last Admin: 08/17/17 08:54 Dose: 60 mg Melatonin (Melatonin) 3 mg PO HS [facility] Stop: 02/14/18 21:01 Last Admin: 08/16/17 22:14 Dose: 3 mg Metoprolol Tartrate (Lopressor) 25 mg PO BID MAR Stop: 02/15/18 09:01 Last Admin: 08/17/17 08:54 Dose: 25 mg Naloxone HCl (Narcan) 0.4 mg IVP Q2MIN PRN PRN Reason: Opioid Reversal Stop: 02/14/18 20:12 Nitroglycerin (Nitroglycerin) 0.4 mg SL AD PRN PRN Reason: Chest Pain Stop: 02/14/18 20:15 Omeprazole (Prilosec) 20 mg PO BIDAC MAR PRN Reason: Protocol Stop: 02/15/18 07:31 Last Admin: 08/17/17 08:54 Dose: 20 mg Ondansetron HCl (Zofran) 4 mg IVP Q6HR PRN PRN Reason: Nausea And Vomiting Stop: 02/14/18 20:12 Last Admin: 08/15/17 22:18 Dose: 4 mg Sertraline HCl (Zoloft) 100 mg PO DAILY [facility] Stop: 02/15/18 09:01 Last Admin: 08/17/17 08:54 Dose: 100 mg Tiotropium [place] (Spiriva) 18 mcg IH DAILY [facility] Stop: 02/15/18 09:01 Last Admin: 08/17/17 07:56 Dose: Not Given - Imaging and Cardiology Stress Test: report reviewed Echo: report reviewed Cardiac cath: report reviewed - EKG Interpretation EKG results cardiology: other (12 hr tele AVG HR 78, paced) Consult Discharge Plan - Plan Instructions: Urinary Tract Infection in Women (DC) Referrals: Michael Agudelo MD [Primary Care Provider] - Prescriptions: Nitrofurantoin (BID) [Macrobid] 100 mg PO BID #10 capsule
[2017-08-17] MEDS: Gabapentin 300 MG CAPSULE PO SCH ×2 (17:25→22:22)
[2017-08-17] MEDS: Melatonin 3 MG TABLET PO SCH (22:23)
[2017-08-18] MEDS: *HR* HYDROcodone/Acet 5/325 mg TABLET PO PRN ×2 (03:40→21:23)
[2017-08-18 04:07] LABS: Basophils # 0.1 K/mcL (0.0-0.2); Basophils % 0.4 %; Eosinophils # 0.3 K/mcL (0.0-0.6); Hematocrit 30.6 % (35.3-44.9); Hemoglobin 9.4 g/dL (11.5-15.4); Immature Granulocytes % 0.4 % (0-4); Lymphocytes # 2.7 K/mcL (0.6-4.6); Lymphocytes % 19.5 %; Mean Corpuscular HGB Conc 30.7 g/dL (31.6-35.5); Mean Corpuscular Hemoglobin 26.3 pg (28.0-33.3); Mean Corpuscular Volume 85.5 fL (83.0-100.0); Mean Platelet Volume 11.4 fL (9.4-12.4); Monocytes % 7.1 %; Neutrophils # 9.8 K/mcL (1.6-8.9); Platelet Count 176 K/mcL (140-400); Red Blood Count 3.58 M/mcL (3.82-4.97); Red Cell Distribution Width 14.5 % (11.5-14.5); Segmented Neutrophils % 70.6 %
[2017-08-18 04:23] LABS: BUN/Creatinine Ratio 21 (6-26); Blood Urea Nitrogen 18 mg/dL (7-20); Carbon Dioxide 23 mEq/L (19-29); Chloride 108 mEq/L (98-109); Glucose 102 mg/dL (70-99); Osmolality,Calculated 288 (280-300); Potassium 4.1 mEq/L (3.5-4.5); Sodium 138 mEq/L (136-145); eGFR For African Americans > 60 (> 60); eGFR For Non-African Americans > 60 (> 60)
--- NOTE | 2017-08-18 07:36 | Internal Med Progress Note ---
Addendum entered and electronically signed by Isatu Aly DO 07:39: S: Patient resting comfortably in bed waiting for [facility]. She has some anxiety about what the results of the testing will be. O: Gen: A&O x 3, no acute distress, answers questions appropriately Head: normocephalic, atraumatic Eye: PERRL, sclera anicteric, conjunctiva pink NEck: supple, trachea midline Heart: RRR, 2/6 systolic murmur Lungs: CTAB GI: soft, nontender, normal bowel sounds Extremities: dorsalis pedis pulses 2/4, no pedal edema Skin: warm, dry, intact, normal color Original Note: <Isatu Aly - Last Filed: 08/18/17 07:34> Date of Encounter: 08/18/17 Time of Encounter: 07:34 - Assessment and plan (1) Cardiomyopathy Current Visit: Yes Status: Acute Assessment and plan: echo: severe LV systolic dysfunction, EF 25%. Severe hypokinesis to akinesis of all mid-apical myocardial segments. Mildly dilated right ventricle. 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 Severely dilated left atrium. Bioprosthetic aortic valve. Moderate-severe mitral regurgitation. Mild- moderate pulmonary HTN. RVSP = 49. plan for [facility] today cardiology consulted; appreciate recommendations Qualifiers: Cardiomyopathy type: unspecified Qualified Code(s): I42.9 - Cardiomyopathy , unspecified (2) UTI (urinary tract infection) Current Visit: No Status: Acute Assessment and plan: Urine culture E. Coli sensitive to rocephin and macrobid continue rocephin while inpatient, will discharge on macrobid Qualifiers: Urinary tract infection type: site unspecified Hematuria presence: without hematuria Qualified Code(s): N39.0 - Urinary tract infection, site not specified (3) Acute on chronic renal failure Current Visit: Yes Status: Resolved Assessment and plan: DIMITRI resolved avoid nephrotoxins as able renally dose medications if necessary Qualifiers: Acute renal failure type: unspecified Chronic kidney disease stage: stage 3 (moderate) Qualified Code(s): N17.9 - Acute kidney failure, unspecified; N18.3 - Chronic kidney disease, stage 3 (moderate); N18.3 - Chronic kidney disease, stage 3 (moderate) (4) Elevated troponin level Current Visit: Yes Status: Acute Assessment and plan: complaint of vague chest pain on admission, currently chest pain free peak of 0.8, trending down cardiology consulted; appreciate recommendations (5) Severe sepsis Current Visit: Yes Status: Resolved Assessment and plan: resolved severe sepsis on admission with lactate 4.9 (6) TIA (transient ischemic attack) Current Visit: Yes Status: Suspected Assessment and plan: suspected patient history of weakness and slurred speech NIH stroke scale of 0 in the ER no focal deficits on exam Qualifiers: Transient cerebral ischemia type: unspecified Qualified Code(s): G45.9 - Transient cerebral ischemic attack, unspecified - Subjective Interval history: Patient states she is "stiff as a board" from the uncomfortable hospital bed, but otherwise doing well. - Constitutional Vitals: Temp Pulse Resp BP Pulse Ox 97.7 F 84 18 120/67 100 08/18/17 06:53 08/18/17 06:53 08/18/17 06:53 08/18/17 06:53 08/18/17 06:53 General appearance: Present: A&O X 3, no acute distress, answers questions appropriately Internal Medicine: Result - Labs CBC & Chem 7: 08/18/17 02:41 08/18/17 02:41 Labs: Short CBC 08/18/17 Range/Units 02:41 WBC 13.9 H (4.3-11.1) K/mcL Hgb 9.4 L (11.5-15.4) g/dL Hct 30.6 L (35.3-44.9) % Plt Count 176 (140-400) K/mcL Neutrophils # 9.8 H (1.6-8.9) K/mcL BMP 08/18/17 02:41 Sodium 138 Potassium 4.1 Chloride 108 Carbon Dioxide 23 BUN 18 Creatinine 0.86 Glucose 102 H Calcium 9.0 - Impressions Impressions Echocardiogram 08/16/17 14:59 Impressions: Incomplete study. Not all standard images were obtained. Severe LV systolic dysfunction, LVEF 25%. There is severe hypokinesis to akinesis of all mid-apical myocardial segments. Mildly dilated right ventricle. There is severe hypokinesis to akinesis of the mid-apical right ventricle. 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 Severely dilated left atrium. No evidence of intracardiac shunting with agitated saline contrast. Bioprosthetic aortic valve. The valve is functioning normally. No aortic stenosis. Trace aortic regurgitation. Status-post mitral valve repair. Mild mitral stenosis (mean gradient 5 mmHg). Moderate-severe mitral regurgitation. Status-post tricuspid valve repair. No tricuspid stenosis. Mild tricuspid regurgitation. Mild-moderate pulmonary hypertension. Estimated RVSP = 49 mmHg. Abnormal results were communicated to the inpatient cardiology consult service. Left Ventricular Wall Motion: Rest Echo Findings The apex, apical inferior, mid inferior, apical anterior, mid anterior, apical septal, mid inferior septal, apical lateral, mid anterior lateral, mid anterior septal and mid inferior lateral minor were akinetic. All other wall segments showed normal motion. Findings: Study Quality * Incomplete study. Not all standard images were obtained. ECG Findings * Sinus rhythm with intermittent ventricular pacing. Left Ventricle * Severe LV systolic dysfunction, LVEF 25%. There is severe hypokinesis to akinesis of all mid-apical myocardial segments. * Normal LV chamber size and wall thickness. * Indeterminate diastolic function. Right Ventricle * Mildly dilated right ventricle. There is severe hypokinesis to akinesis of the mid-apical right ventricle. Device lead * A device lead was visualized in the right atrium and right ventricle. Left Atrium * Severely dilated left atrium. Right Atrium * Normal right atrial size. Interatrial Septum * No evidence of intracardiac shunting with agitated saline contrast. Aorta * Aortic root not well visualized. It appears normal in size. Pericardium * There is no pericardial effusion present. IVC * The IVC is not dilated. Aortic Valve * Bioprosthetic aortic valve. The valve is functioning normally. No aortic stenosis. Trace aortic regurgitation. * No aortic stenosis. * Trace aortic regurgitation. Mitral Valve * Status-post mitral valve repair. Mild mitral stenosis (mean gradient 5 mmHg). Moderate-severe mitral regurgitation. * Mild mitral annular calcification Tricuspid Valve * Status-post tricuspid valve repair. No tricuspid stenosis. Mild tricuspid regurgitation. * Mild-moderate pulmonary hypertension. Estimated RVSP = 49 mmHg. Pulmonic Valve * Pulmonic valve was not visualized. Function not assessed. Consult Discharge Plan - Plan Instructions: Urinary Tract Infection in Women (DC) Referrals: Michael Agudelo MD [Primary Care Provider] - Prescriptions: Nitrofurantoin (BID) [Macrobid] 100 mg PO BID #10 capsule <Tyler Acosta P - Last Filed: 08/18/17 12:15> Date of Encounter: 08/18/17 - Constitutional Vitals: Temp Pulse Resp BP Pulse Ox 97.5 F L 77 18 111/81 100 08/18/17 11:17 08/18/17 11:17 08/18/17 11:17 08/18/17 11:17 08/18/17 11:17 Internal Medicine: Result - Labs CBC & Chem 7: 08/18/17 02:41 08/18/17 02:41 Labs: Short CBC 08/18/17 Range/Units 02:41 WBC 13.9 H (4.3-11.1) K/mcL Hgb 9.4 L (11.5-15.4) g/dL Hct 30.6 L (35.3-44.9) % Plt Count 176 (140-400) K/mcL Neutrophils # 9.8 H (1.6-8.9) K/mcL BMP 08/18/17 02:41 Sodium 138 Potassium 4.1 Chloride 108 Carbon Dioxide 23 BUN 18 Creatinine 0.86 Glucose 102 H Calcium 9.0 - Attending Attestation I examined this patient and my medical decision-making was reviewed with the Resident Physician. I agree with the documented findings, disposition and treatment plan as described except to the extent set forth below. [facility] today will follow cardiology recommendations.
[2017-08-18] MEDS: Budesonide/Formoterol 160/4.5 MDI IH SCH (08:12)
[2017-08-18] MEDS: Tiotropium 18 MCG inhalation IH SCH (08:12)
[2017-08-18] MEDS ORDERED: Aspirin Enteric Coated 325 MG Tablet PO SCH ×2 (09:00)
--- NOTE | 2017-08-18 09:25 | Event Note ---
Date of Encounter: 08/18/17 Time of Encounter: 09:23 - Cardiology Event Note [facility] today for new CMP, elevated troponin and chest pain. R/B/A discussed. Pt agrees to proceed. Will need to revoke DNR status for 24 hours.
[2017-08-18] MEDS: Isosorbide MONOnitrate (24 HR) 30 MG TAB.ER.24H PO SCH (11:11)
[2017-08-18] MEDS: Metoprolol XL (24 HR) Succ 50 MG TAB.ER.24H PO SCH (11:11)
[2017-08-18] MEDS: Gabapentin 300 MG CAPSULE PO SCH ×3 (11:11→21:23)
[2017-08-18] MEDS: diazePAM 10 MG TABLET PO SCH ×2 (11:12→21:23)
[2017-08-18] MEDS ORDERED: *HR* Morphine 2 MG/ML SYRINGE IVP ONE (11:26)
[2017-08-18] MEDS ORDERED: Nitroglycerin 1,000 MCG/10 ML VIAL IV ONE (11:32)
[2017-08-18] MEDS ORDERED: Heparin 1,000 UNITS/500 mL NS 500 ML ONE (11:32)
[2017-08-18] MEDS ORDERED: 0.9 % Sodium Chloride 1,000 ML ONE ×2 (11:32→12:08)
[2017-08-18] MEDS ORDERED: *HR* Heparin 10,000 UNIT/10 ML VIAL ONE (11:32)
[2017-08-18] MEDS ORDERED: *HR* Morphine 2 MG/ML SYRINGE ONE (11:37)
[2017-08-18] MEDS ORDERED: methylPREDNISolone 125 MG/2 ML VIAL ONE (12:08)
[2017-08-18] MEDS ORDERED: *HR* Midazolam HCl 2 MG/2 ML VIAL ONE (12:08)
[2017-08-18] MEDS ORDERED: *HR* FentaNYL (PF) 100 MCG/2 ML VIAL ONE (12:08)
--- NOTE | 2017-08-18 12:13 | Pre-Sedation Evaluation ---
Pre-sedation evaluation - Pre-sedation checklist Date of procedure: 08/18/17 Procedure: [facility] Recent Vitals: Last Vital Signs Temp 97.5 F L 08/18/17 11:17 Pulse 77 08/18/17 11:17 Resp 18 08/18/17 11:17 BP 111/81 08/18/17 11:17 Pulse Ox 100 08/18/17 11:17 H&P (including ROS) documented in medical record: Yes Previous reaction to sedatives/anesthetics: No Dietary Status: NPO after Midnight Airway Assessment: Patient can open mouth completely, TMJ function normal, Micrognathia (under-bite, receding chin) absent, Neck with adequate range of motion Dentition: dentures removed Possible difficult airway: No ASA Classification *see protocol: CLASS II-Mild systemic disease Plan of Care: Pt appropriate candidate for procedure/moderate/conscious sedation , Risks/benefits of procedure/sedation discussed w/ patient/family
--- NOTE | 2017-08-18 12:46 | Invasive Diagnostic Lab Proc ---
Name: Florecita Chaidez Date of Study: 08/18/2017 Date: 1940 Ht: 64.2in Medical Record#: [id number] Age: 77 Wt: 152.12lb Gender: Female BSA: 1.74 Order #: [id number] BMI: 25.97 Physicians Procedure Physician: Hanna Melo MD, [facility] Referring MD: Referring MD: Staff Name Position Time In Sites, Tabby RT (R) Monitor 11:45 AM Felipe Carranza RN Outpatient Pharmacy Manager 11:46 AM Zuleika Dougherty RT Scrub 11:46 AM Indications Indication Non-Stemi Procedures Performed Procedure L HRT ARTERY/VENTRICLE ANGIO Pre-Procedure Checklist Informed consent is complete signed and on chart. H&P is on chart. ID band is on and ID verified with patient. Patient NPO for procedure The procedure was described for the patient and questions were answered. Blood Pressure: 111/81 ECG is on chart. Rhythm: Atrial Fibrillation Plan of Care Patient will tolerate the procedure without complications. Adequate level of comfort will be maintained. Hemodynamics will remain stable Patient will recover from procedure without complications. Respiratory function will be maintained. Cardiac rhythm will remain stable. Patient temperature will be maintained. Patient and/or family have verbalized understanding of the procedure. Patient Education Chief Complaint/Reason for Test: Cardiac Cath Developmental Category: Geriatric (65+ years) Developmentally Appropriate for Age: Yes Learning Barriers: None Education Needs: Procedure Education Method: Verbal Information Taught: Cardiac Cath Educational Evaluation: Able to repeat information Intravenous Access Time IV Size Location DC'd Fluid/Drip Rate Units RN 20g 1 1/4" Patent On Arrival Rt Antecubital 0.9NaCl 25 ml/hr Felipe Carranza RN Allergies iodine methotrexate codeine Vital Signs Time BP (mmHg) HR (bpm) O2 Sat. RR (bpm) LOC 111 / 81 77 100 % 16 5 = Fully awake and oriented or at pre-proc level 12:17 PM / % 5 = Fully awake and oriented or at pre-proc level 12:16 PM 128 / 76 80 100 % 13 12:21 PM 123 / 70 78 100 % 16 12:26 PM 116 / 71 79 100 % 9 12:31 PM 115 / 72 99 100 % 10 Procedural Medications Time Medication Dose Units Method Given By 12:16 PM Oxygen 2 L/min nasal cannula Felipe Carranza RN 12:16 PM Versed 1 mg Intravenous Felipe Carranza RN 12:16 PM Fentanyl 25 mcg Intravenous Felipe Carranza RN 12:17 PM Benadryl 25 mg Intravenous Felipe Carranaz RN 12:17 PM Solu-medrol 125 mg Intravenous Felipe Carranza RN 12:22 PM Lidocaine 2% 16 ml Subcutaneous Hanna Melo MD, [facility] ASA Classification: CLASS II- Mild systemic disease (i.e. well-controlled diabetes, hypertension, asthma, cigarette smoking) Cb Score Preprocedure Postprocedure Activity 2- Moves 4 extremities sustained head lift Activity 2- Moves 4 extremities sustained head lift Circulation 2- SBP +/= 20 points of pre-anesthetic level Circulation 2- SBP +/= 20 points of pre-anesthetic level Consciousness 2- Awake and alert oriented x 3 Consciousness 2- Awake and alert oriented x 3 O2 Saturation 2- Able to maintain O2 satruation of 92% on room air O2 Saturation 2- Able to maintain O2 satruation of 92% on room air Respiratory 2- Able to deep breathe and cough well Respiratory 2- Able to deep breathe and cough well Total Score 10 Total Score 10 Contrast Agent: Isovue Diagnostic Contrast: 39 ml Total Contrast: 39 ml Fluoro Dose: 142 mGy Procedure Log Time Note Enter By 11:41 AM CathStat 11:46 AM Tabby Schwartz RT (R) Position: Monitor Time in: 11:45 tsites 11:46 AM Felipe Carranza RN Position: Outpatient Pharmacy Manager Time in: 11:46 tsites 11:46 AM Zuleika Dougherty RT Position: Scrub Time in: 11:46 tsites 11:46 AM Patient charges- Angio tray pack, Navilyst 3mm J, Pulse Oximetry and ACIST tubing and transducer tsites 12:15 PM Vitals capture started with the following parameters, Patient=Adult, Interval=5 min, Initial Qeegorki=928 mmHg, Deflation Rate=5 mmHg, Cuff placed on Left Arm 12:15 PM Pt arrived to laborer rags 2 at 12:15 tsites 12:16 PM HR=80 bpm, NAJF=411/76 mmhg, XhX4=622.0 %, Resp=13 B/min 12:16 PM Physician arrived 12:16 tsites 12:16 PM Meet and greet completed tsites 12:16 PM Sign in performed according to hospital policy. tsites 12:16 PM Procedure start 12:16 tsites 12:16 PM Case Delayed No tsites 12:16 PM Hair removed from procedure site in holding area using clippers. Bilateral groin prepped with Chloraprep by Lana, Tabby AMOS (R), safety strap applied then patient was draped. Skin intact. tsites 12:16 PM Time: 12:16 Oxygen on at 2 L/min per nasal cannula by Felipe Carranza RN tsites 12:16 PM Time: 12:16 Versed 1 mg Intravenous Given by Felipe Carranza RN tsites 12:17 PM Time: 12:16 Fentanyl 25 mcg Intravenous Given by Felipe Carranza RN tsites 12:17 PM Time: 12:17 Benadryl 25 mg Intravenous Given by Felipe Carranza RN tsites 12: PM Time: 12:17 Solu-medrol 125 mg Intravenous Given by Felipe Carranza RN tsites 12: PM Time: 12:17 Patient comfortable and pain free: Yes tsites 12:17 PM Time: 12:17LOC: 5 = Fully awake and oriented or at pre-proc level tsites 12: PM Clinical Presentation: Non-STEMI tsites 12: PM Pressure channel 3 zeroed. 12:19 PM Recorded ECG: HR=78 Condition=Condition 1 12:21 PM HR=78 bpm, GELZ=774/70 mmhg, ZxJ4=891.0 %, Resp=16 B/min 12: PM Time out performed according to hospital policy tsites 12: PM Time: 12: 16 ml Lidocaine 2% to right groin Subcutaneous Given by Hanna Melo MD, [facility] tsites 12:23 PM Access obtained by percutaneous puncture. 5Fr 10cm Terumo Corning sheath placed in right Femoral artery. [id number] tsites 12:23 PM 5Fr FL 4 catheter inserted over the wire [facility] tsites 12:23 PM 0.035 145cm Navilyst 3mmJ wire [id number] tsites 12:25 PM LCA angiography performed in multiple views. tsites 12: PM Recorded Pressure: Ao, HR=80, Condition=Condition 1 (Aorta) Ao 112/76/93 12:26 PM HR=79 bpm, OORC=617/71 mmhg, YfS6=963.0 %, Resp=9 B/min 12: PM wire reinserted catheter removed tsites 12: PM 5Fr FR 4 catheter inserted over the wire DNC tsites 12:27 PM Pressure channel 3 zeroed. 12:27 PM Recorded Pressure: LV, HR=79, Condition=Condition 1 (Left Ventricle) LV 108/17/20 12:27 PM Recorded Pressure: LV, Ao, HR=74, Condition=Condition 1 (Left Ventricle) LV 91/14/19, (Aorta) Ao 109/59/81 12:28 PM Catheter selectively placed in left ventricle tsites 12:28 PM edp measured tsites 12:30 PM RCA angiography performed in multiple views. tsites 12:31 PM HR=99 bpm, QXLU=042/72 mmhg, CoR1=450.0 %, Resp=10 B/min 12:31 PM Procedure completed at 12:31 tsites 12:31 PM Bolus angiogram of right Ventricle complete: 2 ml/sec for a total of 4 mls tsites 12:32 PM Sign out completed: Radiation Dose 142 mGy Fluoro Time: 1.2 Isovue 370 - 500ml contrast 39 ml given by Hanna Melo MD, [facility]. Complications: NoneCardiac Rehab Consult needed: NoConfirmed administered medications: Yes tsites 12:32 PM Isovue 370 - 500ml,1 Bottle(s) used. tsites 12:32 PM Arterial sheath pulled, Mynx closure device used and was Successful S/N. tsites 12:32 PM Post ECG NSR tsites 12:32 PM Post Blood Pressure 115/72 tsites 12:32 PM 12:32 Post Pulses Bilateral DP & PT 2+ tsites 12:32 PM Information taught Cardiac Cath and Mynx tsites 12:32 PM Education needs Procedure, Plan of Care, and Responsibilities of Patient in Care tsites 12:32 PM Learning barriers :None tsites 12:32 PM Education Methods Verbal tsites 12:32 PM Education evaluation Able to repeat information tsites 12:33 PM Site status No bleeding/hematoma - Rt Groin as reported by Zuleika Dougherty RT at 12:32 tsites 12:33 PM Opsite applied tsites 12:33 PM Delay to floor No tsites 12:33 PM Patient out of room: 12:33 tsites 12:34 PM Report given to alannah DUGAN Pt taken to E Room #22. 12:33 tsites 12:35 PM Coronary Dominance: right tsites 12:35 PM Lesion found in Mid LAD. Pre Stenosis: 30 Pre ANAYA Flow: tsites 12:35 PM Lesion found in Proximal Circumflex. Pre Stenosis: 20 Pre ANAYA Flow: tsites 12:36 PM Lesion found in 1st Marginal. Pre Stenosis: 20 Pre ANAYA Flow: tsites 12:36 PM Lesion found in LMCA. Pre Stenosis: 20 Pre ANAYA Flow: tsites 12:36 PM Lesion found in Proximal RCA. Pre Stenosis: 15 Pre ANAYA Flow: tsites 12:36 PM Lesion found in Mid RCA. Pre Stenosis: 15 Pre ANAYA Flow: tsites Complications Complication None Hemodynamics Pressures Site Systolic/A Wave Diastolic/V Wave Mean AO 112 76 93 LV 108 17 20 LV 91 14 19 AO 109 59 81 Post Procedure Information Blood Pressure: 115/72 mmHg Rhythm: NSR Post procedural instructions were given Closure Device Time Device Success/Fail 08/18/2017 12:37:00 PM MynxGrip Successful Site Checks Time Location Status Staff Sheath In? Note 12:32 PM Rt Groin No bleeding/hematoma Zuleika Dougherty RT Pulses Time Site Pre-Procedure Post-Procedure Note Bilateral DP & PT 2+ 12:32:00 PM Bilateral DP & PT 2+ Updated by Tabby Sites, RT (R) on 08/18/2017 12:38:20 PM Tabby Sites, RT electronically signed on 08/18/2017 12:38:39 PM with status of Final
[2017-08-18] MEDS: *HR* Heparin 5,000 UNIT/ML VIAL SQ SCH ×2 (16:06→20:22)
[2017-08-18] MEDS: Melatonin 3 MG TABLET PO SCH (21:23)
[2017-08-19] MEDS: *HR* Heparin 5,000 UNIT/ML VIAL SQ SCH ×2 (01:38→08:33)
[2017-08-19 03:28] LABS: Basophils % 0.1 %; Hematocrit 26.5 % (35.3-44.9); Hemoglobin 8.3 g/dL (11.5-15.4); Immature Granulocytes % 0.6 % (0-4); Lymphocytes # 0.9 K/mcL (0.6-4.6); Lymphocytes % 13.7 %; Mean Corpuscular HGB Conc 31.3 g/dL (31.6-35.5); Mean Corpuscular Hemoglobin 26.4 pg (28.0-33.3); Mean Corpuscular Volume 84.4 fL (83.0-100.0); Mean Platelet Volume 11.5 fL (9.4-12.4); Monocytes # 0.4 K/mcL (0.0-1.3); Monocytes % 5.1 %; Neutrophils # 5.5 K/mcL (1.6-8.9); Platelet Count 163 K/mcL (140-400); Red Blood Count 3.14 M/mcL (3.82-4.97); Red Cell Distribution Width 14.3 % (11.5-14.5); Segmented Neutrophils % 80.5 %
[2017-08-19 03:42] LABS: BUN/Creatinine Ratio 22 (6-26); Blood Urea Nitrogen 22 mg/dL (7-20); Calcium 8.8 mg/dL (8.6-10.8); Carbon Dioxide 23 mEq/L (19-29); Chloride 108 mEq/L (98-109); Glucose 151 mg/dL (70-99); Osmolality,Calculated 296 (280-300); Potassium 3.9 mEq/L (3.5-4.5); Sodium 140 mEq/L (136-145); eGFR For African Americans > 60 (> 60); eGFR For Non-African Americans 54 (> 60)
[2017-08-19] MEDS: Tiotropium 18 MCG inhalation IH SCH (08:20)
[2017-08-19] MEDS: Budesonide/Formoterol 160/4.5 MDI IH SCH (08:20)
[2017-08-19] MEDS: Isosorbide MONOnitrate (24 HR) 30 MG TAB.ER.24H PO SCH (08:32)
[2017-08-19] MEDS: Gabapentin 300 MG CAPSULE PO SCH (08:33)
[2017-08-19] MEDS: diazePAM 10 MG TABLET PO SCH (08:33)
[2017-08-19] MEDS: Metoprolol XL (24 HR) Succ 50 MG TAB.ER.24H PO SCH (08:33)
[2017-08-19] MEDS: *HR* HYDROcodone/Acet 5/325 mg TABLET PO PRN ×2 (08:36→14:46)
[2017-08-19] MEDS ORDERED: Aspirin Enteric Coated 81 MG Tablet PO SCH (09:00)
--- NOTE | 2017-08-19 10:10 | Cardiology Progress Note ---
Date of Encounter: 08/19/17 Time of Encounter: 10:08 Assessment and Plan (1) Cardiomyopathy Current Visit: Yes Status: Acute NICMP. Echo Severe LV systolic dysfunction, LVEF 25%. There is severe hypokinesis to akinesis of all mid-apical myocardial segments.Mildly dilated right ventricle. There is severe hypokinesis to akinesis of the mid-apical right ventricle. 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 Moderate- severe mitral regurgitation. S/P LHC yesterday--single vessel CAD, previously stented pLAD widely patent. No intervention warranted. Renal function has normalized. Continue BB. Renal function has normalized, add low dose ACEi. Right femoral access site healing well. No bleeding, hematoma or ecchymosis noted. Cardiology signing off. Reconsult PRN. Outpt follow-up will be coordinated. Qualifiers: Cardiomyopathy type: unspecified Qualified Code(s): I42.9 - Cardiomyopathy , unspecified (2) Elevated troponin level Current Visit: Yes Status: Acute Peak troponin 0.80, downtrended to 0.68, 0.53 in setting of sepsis, UTI, and DIMITRI. Suspect demand ischemia, nondiagnostic for ACS. No cardiac rehab warranted. Pt reports occasional chest pain, bilateral shoulder pain. Echo 10/2016 EF was 70%. Echo rechecked--Severe LV systolic dysfunction, LVEF 25%. There is severe hypokinesis to akinesis of all mid-apical myocardial segments.Mildly dilated right ventricle. There is severe hypokinesis to akinesis of the mid-apical right ventricle. 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 Moderate-severe mitral regurgitation. LHC yesterday--widely patent previously stented pLAD. No intervention. (3) Chest pain Current Visit: Yes Status: Acute Pt reports occasional chest pain at home as well. Follows with Dr. Escalona. Peak troponin 0.8, downtrended to 0.53 but in setting of sepsis, UTI and DIMITRI-- nondiagnostic for ACS. LHC yesterday without intervention. Continue ASA, Statin, BB, Imdur. Qualifiers: Chest pain type: unspecified Qualified Code(s): R07.9 - Chest pain, unspecified (4) History of aortic valve replacement with bioprosthetic valve Current Visit: No Status: Chronic Bioprosthetic aortic valve. Echo--The valve is functioning normally. No aortic stenosis. Trace aortic regurgitation. (5) Afib Current Visit: No Status: Chronic Known A-Fib. Paced rhythm. Not anticoagulated due to hx of GI bleed and falls risk. Qualifiers: Atrial fibrillation type: unspecified Qualified Code(s): I48.91 - Unspecified atrial fibrillation (6) CAD (coronary artery disease) Current Visit: No Status: Acute Hx of LAD stent. Widely patent on [facility] yesterday. ASA, statin, BB, Imdur. Qualifiers: Coronary Disease-Associated Artery/Lesion type: barrow artery [place] vs. transplanted heart: barrow heart Associated angina: without angina Qualified Code(s): I25.10 - Atherosclerotic heart disease of barrow coronary artery without angina pectoris (7) Mitral regurgitation Current Visit: Yes Status: Acute Status-post mitral valve repair. Mild mitral stenosis (mean gradient 5 mmHg). Moderate-severe mitral regurgitation. LHC yesterday ruled out ischemic cause. Outpt follow-up, will need referred to [facility] where she had all prior valve surgeries to discuss intervention. Euvolemic on exam. Qualifiers: Cardiac valve disease etiology: etiology unspecified Qualified Code(s): I34.0 - Nonrheumatic mitral (valve) insufficiency (8) Anemia Current Visit: Yes Status: Acute Known hx of chronic anemia. HGB 12.3 on admission, now 8.3. Hx of GI bleed, but pt denies active bleeding. Suspect HGB drop is dilutional as IV fluids were running at 125mg/hr. Also now s/p [facility]. Management per primary team. Qualifiers: Anemia type: unspecified type Qualified Code(s): D64.9 - Anemia, unspecified Discussion w patient/family: The assessment and plan as outlined above was discussed with the patient and/or family members who expressed understanding and agreement. All questions were answered. Thank you for involving us in the care of your patient. Please call with any questions. I will discuss all the above with Dr. Baron and make changes as necessary. Subjective Principal diagnosis: CHF, CMP Interval history: S/P [facility] yesterday--single vessel CAD, previously stented pLAD widely patent. No intervention warranted. Pt denies chest pain or dyspnea overnight. Objective Vital Signs, Last 4 Hours Temp Pulse Resp BP Pulse Ox 08/19/17 08:20 15 100 08/19/17 07:25 97.6 F 69 12 110/65 100 Vital Signs Temp Pulse Resp BP Pulse Ox 08/19/17 08:20 15 100 08/19/17 07:25 97.6 F 69 12 110/65 100 08/19/17 05:00 98 F 68 18 105/60 98 08/18/17 21:19 71 105/66 08/18/17 19:00 98.2 F 72 20 105/57 100 08/18/17 15:28 97.6 F 74 18 117/70 95 08/18/17 11:17 97.5 F L 77 18 111/81 100 Intake and Output 08/18/17 08/19/17 08/19/17 23:59 07:59 15:59 Intake Total 300 / 300 120 / 120 120 / 120 Output Total 1300 / 1300 150 / 150 Balance -1000 / -1000 -30 / -30 120 / 120 Intake: Oral 300 / 300 120 / 120 120 / 120 Output: Urine 150 / 150 Catheter 1300 / 1300 Other: Meal Dinner Breakfast Percent of Meal Consumed 50% 30% # Voids 1 Weight 68.1 kg Patient Weight 08/19/17 23:59 Weight 68.1 kg General: Conversant, No Apparent Distress HEENT: Atraumatic, Normocephaly, Mucus Membranes Moist Neck: No JVD, Normal carotid pulses Cardiac: Other (2/6 murmur) Lungs: Normal Breath Sounds, No Wheeze, Rales, Rhonchi Neuro: Alert and responsive, No focal deficits noted Abdomen: Soft, Non-Tender Skin: Other (right femoral access site healing well, no bleeding hematoma or ecchymosis noted.) Musculoskeletal: No Chest Wall Tenderness Extremities: No Clubbing, No Cyanosis, No Edema, Normal Pulses Results 08/19/17 02:44 08/19/17 02:44 Lab Results 08/19/17 08/19/17 02:44 02:44 WBC 6.8 D Hgb 8.3 L Hct 26.5 L Plt Count 163 Sodium 140 Potassium 3.9 Chloride 108 Carbon Dioxide 23 BUN 22 H Creatinine 0.99 Glucose 151 H Calcium 8.8 Short CBC 08/19/17 Range/Units 02:44 WBC 6.8 D (4.3-11.1) K/mcL Hgb 8.3 L (11.5-15.4) g/dL Hct 26.5 L (35.3-44.9) % Plt Count 163 (140-400) K/mcL Neutrophils # 5.5 (1.6-8.9) K/mcL BMP 08/19/17 Range/Units 02:44 Sodium 140 (136-145) mEq/L Potassium 3.9 (3.5-4.5) mEq/L Chloride 108 (98-109) mEq/L Carbon Dioxide 23 (19-29) mEq/L BUN 22 H (7-20) mg/dL Creatinine 0.99 (0.57-1.11) mg/dL Glucose 151 H (70-99) mg/dL Calcium 8.8 (8.6-10.8) mg/dL Active Medications Acetaminophen (Tylenol) 650 mg PO Q6HR PRN PRN Reason: Mild Pain (1-3), headache Stop: 02/14/18 20:12 Last Admin: 08/15/17 22:18 Dose: 650 mg Hydrocodone Bitart/Acetaminophen ([place] 5-325 Mg) 1 tab PO Q6HR PRN PRN Reason: Pain Stop: 02/15/18 00:26 Last Admin: 08/19/17 08:36 Dose: 1 tab Albuterol Sulfate (Albuterol Inhaler) 2 puff IH [id number] PRN PRN Reason: Shortness Of Breath Stop: 02/16/18 12:01 Aspirin (Aspirin Ec) 81 mg PO DAILY MAR Stop: 02/17/18 09:01 Last Admin: 08/19/17 08:33 Dose: 81 mg Atorvastatin Calcium (Lipitor) 40 mg PO HS MAR Stop: 02/15/18 21:01 Last Admin: 08/18/17 21:22 Dose: 40 mg Budesonide/Formoterol Fumarate (Symbicort) 1 puff IH DAILY MAR PRN Reason: Protocol Stop: 02/17/18 09:01 Last Admin: 08/19/17 08:20 Dose: 1 puff Diazepam (Valium) 10 mg PO BID MAR Stop: 02/14/18 21:01 Last Admin: 08/19/17 08:33 Dose: 10 mg Donepezil HCl (Aricept) 10 mg PO DAILY MAR Stop: 02/17/18 09:01 Last Admin: 08/19/17 08:33 Dose: 10 mg Gabapentin (Neurontin) 300 mg PO TID [facility] Stop: 02/16/18 15:01 Last Admin: 08/19/17 08:33 Dose: 300 mg Heparin Sodium (Porcine) (Heparin) 5,000 unit SQ Q8HR [facility] Stop: 02/15/18 00:01 Last Admin: 08/19/17 08:33 Dose: 5,000 unit Ceftriaxone Sodium 2,000 mg/ (Dextrose) 100 mls @ 200 mls/hr IVPB Q24H [facility] Stop: 02/18/18 02:01 Last Admin: 08/19/17 01:39 Dose: 200 mls/hr Isosorbide Mononitrate (Imdur) 60 mg PO DAILY [facility] Stop: 02/16/18 09:01 Last Admin: 08/19/17 08:32 Dose: 60 mg Melatonin (Melatonin) 3 mg PO HS [facility] Stop: 02/14/18 21:01 Last Admin: 08/18/17 21:23 Dose: 3 mg Metoprolol Succinate (Toprol Xl) 50 mg PO DAILY [facility] Stop: 02/17/18 09:01 Last Admin: 08/19/17 08:33 Dose: 50 mg Naloxone HCl (Narcan) 0.4 mg IVP Q2MIN PRN PRN Reason: Opioid Reversal Stop: 02/14/18 20:12 Nitroglycerin (Nitroglycerin) 0.4 mg SL AD PRN PRN Reason: Chest Pain Stop: 02/14/18 20:15 Omeprazole (Prilosec) 20 mg PO BIDAC MAR PRN Reason: Protocol Stop: 02/15/18 07:31 Last Admin: 08/19/17 08:32 Dose: 20 mg Ondansetron HCl (Zofran) 4 mg IVP Q6HR PRN PRN Reason: Nausea And Vomiting Stop: 02/14/18 20:12 Last Admin: 08/15/17 22:18 Dose: 4 mg Sertraline HCl (Zoloft) 100 mg PO DAILY [facility] Stop: 02/15/18 09:01 Last Admin: 08/19/17 08:33 Dose: 100 mg Tiotropium [place] (Spiriva) 18 mcg IH DAILY [facility] Stop: 02/15/18 09:01 Last Admin: 08/19/17 08:20 Dose: 18 mcg - Imaging and Cardiology Echo: report reviewed Cardiac cath: report reviewed - EKG Interpretation EKG results cardiology: other (12 hr tele AVG HR 69, paced) Consult Discharge Plan - Plan Instructions: Urinary Tract Infection in Women (DC) Additional Instructions: RISK FACTORS: STOP SMOKING: If you smoke, STOP. Smoking or tobacco use significantly increases your risk of heart disease because nicotine causes the arteries to narrow or constrict. It also causes fats to stick to the artery. Your chances of having a heart attack are greatly increased if you continue to smoke. For more information, call the education line for smoking cessation [id number] EAT A LOW FAT/CHOLESTEROL/SODIUM DIET: This diet may help reduce your chances of having a heart attack. LIFTING: Avoid lifting anything more than 10 pounds for 5-7 days Prior to straining, laughing, sneezing and/or coughing, apply manual pressure directly over insertion site. ACTIVITY: You may walk or climb stairs as tolerated You can resume sexual activity as tolerated In general, you are encouraged to engage in a minimum of 30 minutes or more of moderate intensity physical activity, such as brisk walking, daily or at least 3 -4 times weekly BATHING Do not submerge the site into water (bath tub, hot tub, swimming pool) for 1 week. This can be a source for infection into the blood stream. You may shower after 24 hours SITE CARE: After 24 hours, you may remove the dressing and leave the site open to air. Keep the site clean and dry. Clean gently and pat dry. You can expect bruising and tenderness that gradually resolve within a week or two. Return to work as instructed per your physician Resume driving as instructed per physician Keep all scheduled follow up appointments Resume medications as instructed IMPORTANT: If prescribed a Platelet Aggregation Inhibitor such as, Plavix, Brilinta or Effient: Duration of therapy is minimum one year These medications are often used in combination with Aspirin in prevention of future heart attacks Never discontinue unless consult with your Gear [employer]ting [employer] Up [employer] STROKE (CVA) Risk factors for a stroke are: Age, cigarette smoking, diabetes, excessive alcohol consumption, family history, high blood pressure, overweight, physical inactivity, prior stroke, heart attack, diagnosis of carotid artery stenosis or other artery disease. Warning signs: Sudden numbness or weakness of the face, arm or leg; especially on one side of the body, sudden confusion, trouble speaking or understanding, sudden trouble seeing in one or both eyes, sudden trouble walking, dizziness, loss of balance or coordination, sudden severe headache with no cause. Call 911 or go to the Emergency Room. CONGESTIVE HEART FAILURE: If you have been diagnosed with Congestive Heart Failure (CHF) and your symptoms return, make an appointment with your physician Weigh yourself daily. Notify your physician if you have a weight gain of two or more pounds in one day or five or more pounds in one week. If you experience any difficulty breathing, please call 911 BLEEDING: Although the risk of bleeding is minimal, it can happen. If you have any bleeding from the site, apply firm pressure above the puncture site for 10-15 minutes. If the bleeding does not stop, continue manual pressure and call 911 Contact your physician if: You develop a fever greater than 101 degrees Fahrenheit Your site becomes reddened or has any drainage You have an increase in pain or burning at the site or if a large knot forms at the site. If you experience chest pain, shortness of breath, dizziness, or extreme tiredness, stop the activity and rest. Please notify your physicians office if you experience any of these symptoms and they are not relieved by rest please call 911! Referrals: Michael Agudelo MD [Primary Care Provider] - Prescriptions: Nitrofurantoin (BID) [Macrobid] 100 mg PO BID #10 capsule
--- NOTE | 2017-08-19 10:55 | Discharge Summary ---
<Isatu Aly - Last Filed: 08/19/17 10:52> Date of Encounter: 08/19/17 Time of Encounter: 10:52 - Discharge Diagnosis (1) Cardiomyopathy Priority: Primary Status: Acute Qualifiers: Cardiomyopathy type: unspecified Qualified Code(s): I42.9 - Cardiomyopathy , unspecified (2) UTI (urinary tract infection) Priority: Primary Status: Acute Qualifiers: Urinary tract infection type: site unspecified Hematuria presence: without hematuria Qualified Code(s): N39.0 - Urinary tract infection, site not specified (3) Acute on chronic renal failure Priority: Secondary Status: Resolved Qualifiers: Acute renal failure type: unspecified Chronic kidney disease stage: stage 3 (moderate) Qualified Code(s): N17.9 - Acute kidney failure, unspecified; N18.3 - Chronic kidney disease, stage 3 (moderate); N18.3 - Chronic kidney disease, stage 3 (moderate) (4) Elevated troponin level Priority: Secondary Status: Acute (5) Severe sepsis Priority: Secondary Status: Resolved (6) TIA (transient ischemic attack) Priority: Secondary Status: Suspected Qualifiers: Transient cerebral ischemia type: unspecified Qualified Code(s): G45.9 - Transient cerebral ischemic attack, unspecified - Discharge Medications Prescriptions: Aspirin Enteric Coated [Aspirin EC] 81 mg PO DAILY #30 tablet.dr Atorvastatin [Lipitor] 40 mg PO HS #30 tablet Isosorbide MONOnitrate [Isosorbide Mononitrate ER] 60 mg PO DAILY #30 tab.er.24h Lisinopril [Zestril] 2.5 mg PO DAILY #30 tablet Metoprolol XL (24 HR) Succ [Toprol Xl] 50 mg PO DAILY #30 tab.er.24h Nitrofurantoin Monohyd/M-Cryst [Macrobid 100 mg Capsule] 100 mg PO BID #6 capsule Home Medications: Ergocalciferol (VITAMIN D2) [Drisdol (50,000 Unit)] 50,000 unit PO QWEEK [History] Omeprazole [PriLOSEC] 20 mg PO BIDAC 10/21/15 [History] HYDROcodone/Acet 5/325 mg [[place] 5-325 mg] 1 tab PO Q6HR PRN #15 tablet [Rx] Losartan [Cozaar] 12.5 mg PO DAILY tablet 01/12/16 [Rx] Lovastatin [Mevacor] 20 mg PO HS tablet 01/12/16 [Rx] Albuterol Sulfate [Proair Hfa] 2 puff IH Q4H PRN 10/18/16 [History] Budesonide/Formoterol 160/4.5 [Symbicort 160/4.5] 1 puff IH DAILY 10/18/16 [ History] Donepezil HCl [Aricept] 10 mg PO DAILY 10/18/16 [History] Folic Acid 0.4 mg PO DAILY 10/18/16 [History] Furosemide [Lasix] 10 mg PO DAILY 10/18/16 [History] Gabapentin [Neurontin] 300 mg PO TID 10/18/16 [History] Ipratropium [ATROVENT Inhaler] 1 puff IH DAILY 10/18/16 [History] Melatonin [Melatin] 3 mg PO HS 10/18/16 [History] Nitroglycerin [Nitrostat] 0.4 mg SL AD PRN 10/18/16 [History] Ondansetron HCl [Zofran] 4 mg PO TID PRN 10/18/16 [History] Oxygen 1 each .ROUTE AD 10/18/16 [History] Potassium Chloride [Klor-Con 10] 20 meq PO DAILY 10/18/16 [History] Sertraline [Zoloft] 100 mg PO DAILY 10/18/16 [History] Tiotropium [Spiriva] 18 mcg IH DAILY 10/18/16 [History] diazePAM [Valium] 10 mg PO BID 10/18/16 [History] Aspirin Enteric Coated [Aspirin EC] 81 mg PO DAILY #30 tablet. 08/19/17 [Rx] Atorvastatin [Lipitor] 40 mg PO HS #30 tablet 08/19/17 [Rx] Isosorbide MONOnitrate [Isosorbide Mononitrate ER] 60 mg PO DAILY #30 tab.er.24h 08/19/17 [Rx] Lisinopril [Zestril] 2.5 mg PO DAILY #30 tablet 08/19/17 [Rx] Metoprolol XL (24 HR) Succ [Toprol Xl] 50 mg PO DAILY #30 tab.er.24h 08/19/17 [ Rx] Nitrofurantoin Monohyd/M-Cryst [Macrobid 100 mg Capsule] 100 mg PO BID #6 capsule 08/19/17 [Rx] Allergies/Adverse Reactions: 3 Allergy/AdvReac Type Severity Reaction Status Date / Time codeine Allergy Hives Verified 10/18/16 10:11 iodine Allergy Hives Verified 10/18/16 10:11 methotrexate Allergy Hives Verified 10/18/16 10:11 Procedures/tests Complete & Pending: Procedures Performed prior 72 hours Category Date Time Status CL Cardiac Catheterization [CL] Routine Staff Training And Development Manager 08/18/17 09:23 Completed EV echocardiogram Routine Y 08/16/17 14:59 Completed Date of admission: 08/15/17 20:11 Primary care physician: Michael Agudelo MD Consults: 08/16/17 11:46 Consult to Cardiology [CONS] Routine Comment: Consulting Provider: [facility] [place] Reason for Consult: elevated troponin (trending down), symptom free; h/o HTN , CAD, tachy-kimberlyn syndrome, 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 Smoking or tobacco use significantly increases your risk of heart disease because nicotine causes the arteries to narrow or constrict. It also causes fats to stick to the artery. Your chances of having a heart attack are greatly increased if you continue to smoke. For more information, call the education line for smoking cessation 7-585-RQTCSLR EAT A LOW FAT/CHOLESTEROL/SODIUM DIET: This diet may help reduce your chances of having a heart attack. LIFTING: Avoid lifting anything more than 10 pounds for 5-7 days Prior to straining, laughing, sneezing and/or coughing, apply manual pressure directly over insertion site. ACTIVITY: You may walk or climb stairs as tolerated You can resume sexual activity as tolerated In general, you are encouraged to engage in a minimum of 30 minutes or more of moderate intensity physical activity, such as brisk walking, daily or at least 3 -4 times weekly BATHING Do not submerge the site into water (bath tub, hot tub, swimming pool) for 1 week. This can be a source for infection into the blood stream. You may shower after 24 hours SITE CARE: After 24 hours, you may remove the dressing and leave the site open to air. Keep the site clean and dry. Clean gently and pat dry. You can expect bruising and tenderness that gradually resolve within a week or two. Return to work as instructed per your physician Resume driving as instructed per physician Keep all scheduled follow up appointments Resume medications as instructed IMPORTANT: If prescribed a Platelet Aggregation Inhibitor such as, Plavix, Brilinta or Effient: Duration of therapy is minimum one year These medications are often used in combination with Aspirin in prevention of future heart attacks Never discontinue unless consult with your [employer] STROKE (CVA) Risk factors for a stroke are: Age, cigarette smoking, diabetes, excessive alcohol consumption, family history, high blood pressure, overweight, physical inactivity, prior stroke, heart attack, diagnosis of carotid artery stenosis or other artery disease. Warning signs: Sudden numbness or weakness of the face, arm or leg; especially on one side of the body, sudden confusion, trouble speaking or understanding, sudden trouble seeing in one or both eyes, sudden trouble walking, dizziness, loss of balance or coordination, sudden severe headache with no cause. Call 911 or go to the Emergency Room. CONGESTIVE HEART FAILURE: If you have been diagnosed with Congestive Heart Failure (CHF) and your symptoms return, make an appointment with your physician Weigh yourself daily. Notify your physician if you have a weight gain of two or more pounds in one day or five or more pounds in one week. If you experience any difficulty breathing, please call 911 BLEEDING: Although the risk of bleeding is minimal, it can happen. If you have any bleeding from the site, apply firm pressure above the puncture site for 10-15 minutes. If the bleeding does not stop, continue manual pressure and call 911 Contact your physician if: You develop a fever greater than 101 degrees Fahrenheit Your site becomes reddened or has any drainage You have an increase in pain or burning at the site or if a large knot forms at the site. If you experience chest pain, shortness of breath, dizziness, or extreme tiredness, stop the activity and rest. Please notify your physicians office if you experience any of these symptoms and they are not relieved by rest please call 911! - Diet and Activity Activity: ambulate only with your walker Diet: low fat, low cholesterol Interval History: Doing well today, unsure about whether she want to pursue surgery for her mitral valve. No shortness of breath, chest pain. Hospital course: Ms. Chaidez is a 77 year old female admitted to the hospital with severe sepsis - lactate 4.9 - and stroke like symptoms that self resolved, possible TIA. She was found to have a UTI and elevated troponin. Echo was consistent with Takotsubo cardiomyopathy. She underwent LHC and is being discharged home on optimized medicla therapy. She can follow-up outpatient in [place] for her moderate to severe mitral regurgitation. She received rocephin inpateint for her UTI and is being discharged with macrobid to complete 7 days of antibiotic therapy. - Time Spent with Patient Total time spent providing and/or coordinating discharge services: - Constitutional Vitals: Temp Pulse Resp BP Pulse Ox 97.6 F 69 15 110/65 100 08/19/17 07:25 08/19/17 07:25 08/19/17 08:20 08/19/17 07:25 08/19/17 08:20 General appearance: Present: A&O X 3, no acute distress, answers questions appropriately - Head Head exam: Present: atraumatic, normocephalic - Eye Eye exam: Present: PERRL, conjuntiva pink, sclera anicteric Pupils: Present: PERRL - Neck Neck exam general surgery: Present: supple, trachea midline - Respiratory Respiratory exam: Present: CTAB. Absent: accessory muscle use, rales, rhonchi, wheezes - Cardiovascular Cardiovascular exam: Present: RRR, +S1, +S2, systolic murmur - GI/Abdominal GI/Abdominal exam: Present: normal bowel sounds, soft, no peritoneal signs. Absent: distended, tenderness - Extremities Exam Extremities exam: Present: warm, radial pulses palpable and symmetrical. Absent : calf tenderness, cyanotic, pedal edema - Neurological Exam Neurological exam: Present: CN II-XII intact, oriented X3, no focal deficits. Absent: pronater drift, facial droop, speech deficit - Skin Skin exam: Present: dry, intact, normal color, warm <Karla,Tyler P - Last Filed: 08/19/17 21:07> Date of Encounter: 08/19/17 Procedures/tests Complete & Pending: Procedures Performed prior 72 hours Category Date Time Status CL Cardiac Catheterization [CL] Routine Staff Training And Development Manager 08/18/17 09:23 Completed Date of admission: 08/15/17 20:11 Primary care physician: Michael Agudelo MD Consults: 08/16/17 11:46 Consult to Cardiology [CONS] Routine Comment: Consulting Provider: [facility] [place] Reason for Consult: elevated troponin (trending down), symptom free; h/o HTN , CAD, tachy-kimberlyn syndrome, 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 Chaidez is a 77 year old female - Time Spent with Patient Total time spent providing and/or coordinating discharge services: - Constitutional Vitals: Temp Pulse Resp BP Pulse Ox 97.7 F 79 14 99/74 99 08/19/17 10:54 08/19/17 10:54 08/19/17 10:54 08/19/17 10:54 08/19/17 10:54 - Attending Attestation I examined this patient and my medical decision-making was reviewed with the Resident Physician. I agree with the documented findings, disposition and treatment plan as described except to the extent set forth below.
[2017-08-19 10:58] VITALS: BP 99/74
[2017-08-19] MEDS: Acetaminophen 325 MG TABLET PO PRN (10:58)
--- NOTE | 2017-08-19 13:23 | Physician Discharge Referral ---
<Mathew Luevano - Last Filed: 08/19/17 13:21> Home Health/Hosp Referral Info Transfer to: Home Health Attending Provider: Dr. Acosta Provider in Charge Post Discharge: PCP - Diagnosis (1) Cardiomyopathy Priority: Primary Status: Acute (2) Acute on chronic renal failure Priority: Secondary Status: Resolved (3) TIA (transient ischemic attack) Priority: Secondary Status: Suspected (4) Elevated troponin level Priority: Secondary Status: Acute (5) Severe sepsis Priority: Secondary Status: Resolved (6) UTI (urinary tract infection) Priority: Secondary Status: Acute - Respiratory Orders Oxygen / L per min (2l) Smoking Cessation: Smoking cessation has been advised. For more information, call the [facility] Communication Quit Line at 2-808-XZDN-NOW. - Diet/Nutrition Diet/Nutrition Orders: Cardiac - Activity Activity Orders: Walker - Services Needed Following services are medically necessary services: Nursing, Physical Therapy - Transfer Medications Prescriptions: Aspirin Enteric Coated [Aspirin EC] 81 mg PO DAILY #30 tablet. Atorvastatin [Lipitor] 40 mg PO HS #30 tablet Isosorbide MONOnitrate [Isosorbide Mononitrate ER] 60 mg PO DAILY #30 tab.er.24h Lisinopril [Zestril] 2.5 mg PO DAILY #30 tablet Metoprolol XL (24 HR) Succ [Toprol Xl] 50 mg PO DAILY #30 tab.er.24h Nitrofurantoin Monohyd/M-Cryst [Macrobid 100 mg Capsule] 100 mg PO BID #6 capsule Home Medications: Ergocalciferol (VITAMIN D2) [Drisdol (50,000 Unit)] 50,000 unit PO QWEEK [History] Omeprazole [PriLOSEC] 20 mg PO BIDAC 10/21/15 [History] HYDROcodone/Acet 5/325 mg [[place] 5-325 mg] 1 tab PO Q6HR PRN #15 tablet [Rx] Losartan [Cozaar] 12.5 mg PO DAILY tablet 01/12/16 [Rx] Lovastatin [Mevacor] 20 mg PO HS tablet 01/12/16 [Rx] Albuterol Sulfate [Proair Hfa] 2 puff IH Q4H PRN 10/18/16 [History] Budesonide/Formoterol 160/4.5 [Symbicort 160/4.5] 1 puff IH DAILY 10/18/16 [ History] Donepezil HCl [Aricept] 10 mg PO DAILY 10/18/16 [History] Folic Acid 0.4 mg PO DAILY 10/18/16 [History] Furosemide [Lasix] 10 mg PO DAILY 10/18/16 [History] Gabapentin [Neurontin] 300 mg PO TID 10/18/16 [History] Ipratropium [ATROVENT Inhaler] 1 puff IH DAILY 10/18/16 [History] Melatonin [Melatin] 3 mg PO HS 10/18/16 [History] Nitroglycerin [Nitrostat] 0.4 mg SL AD PRN 10/18/16 [History] Ondansetron HCl [Zofran] 4 mg PO TID PRN 10/18/16 [History] Oxygen 1 each .ROUTE AD 10/18/16 [History] Potassium Chloride [Klor-Con 10] 20 meq PO DAILY 10/18/16 [History] Sertraline [Zoloft] 100 mg PO DAILY 10/18/16 [History] Tiotropium [Spiriva] 18 mcg IH DAILY 10/18/16 [History] diazePAM [Valium] 10 mg PO BID 10/18/16 [History] Aspirin Enteric Coated [Aspirin EC] 81 mg PO DAILY #30 tablet.dr 08/19/17 [Rx] Atorvastatin [Lipitor] 40 mg PO HS #30 tablet 08/19/17 [Rx] Isosorbide MONOnitrate [Isosorbide Mononitrate ER] 60 mg PO DAILY #30 tab.er.24h 08/19/17 [Rx] Lisinopril [Zestril] 2.5 mg PO DAILY #30 tablet 08/19/17 [Rx] Metoprolol XL (24 HR) Succ [Toprol Xl] 50 mg PO DAILY #30 tab.er.24h 08/19/17 [ Rx] Nitrofurantoin Monohyd/M-Cryst [Macrobid 100 mg Capsule] 100 mg PO BID #6 capsule 08/19/17 [Rx] Allergies/Adverse Reactions: 3 Allergy/AdvReac Type Severity Reaction Status Date / Time codeine Allergy Hives Verified 10/18/16 10:11 iodine Allergy Hives Verified 10/18/16 10:11 methotrexate Allergy Hives Verified 10/18/16 10:11 Certification: Further, I certify that my clinical findings support that this patient is homebound (i.e. absences from home require considerable and taxing effort and are for medical reasons or christian services or infrequently or short duration when for other reasons) because: Homebound Reason: Patient requires assistance of a person or device to safely leave home, Leaving home requires considerable and taxing effort due to condition Attestation: My signature below is to certify that this patient is under my care and that I, or nurse practitioner, or a physician's internal medicine physician assistant working with me, has a face-to -face encounter with this patient. <Tyler Acosta P - Last Filed: 08/19/17 21:07> - Respiratory Orders Smoking Cessation: Smoking cessation has been advised. For more information, call the [place] Tobacco Quit Line at 6-197-WTYK-NOW. Certification: Further, I certify that my clinical findings support that this patient is homebound (i.e. absences from home require considerable and taxing effort and are for medical reasons or christian services or infrequently or short duration when for other reasons) because: Attestation: My signature below is to certify that this patient is under my care and that I, or nurse practitioner, or a physician's internal medicine physician assistant working with me, has a face-to -face encounter with this patient.
== END 2017-08-19 16:33 | disposition home or self-care (01) | DRG 871 ==
LOC: 2NENU 12:17 → EMEROO 12:17 → 2NENU 17:00
PROVIDERS: ADMIT Internal Medicine; ATTEND Internal Medicine

== ENCOUNTER 2018-08-14 14:05 | Observation (INO) ==
[2018-08-14] MEDS ORDERED: Nitroglycerin 0.4 MG TAB.SUBL SL ONE (14:25)
--- NOTE | 2018-08-14 14:31 | Emergency Department Note ---
Disposition Clinical Impression: History of aortic valve replacement with bioprosthetic valve Cardiac arrhythmia Qualifiers: Arrhythmia type: ventricular tachycardia Qualified Code(s): I47.2 - Ventricular tachycardia Chest pain Qualifiers: Chest pain type: unspecified Qualified Code(s): R07.9 - Chest pain, unspecified Disposition: Admitted As Inpatient Condition: Fair Referrals: Joseph Mueller MD [Primary Care Provider] - Forms: ED Satisfaction Letter Time of Disposition: 16:42 Chest Pain HPI - General Chief Complaint: ED Chest Pain Stated Complaint: Chest Back L Arm Pain Time Seen by Provider: 08/14/18 14:12 Source: patient Mode of arrival: wheelchair Limitations: no limitations Vital Signs Reviewed: Yes Nursing Notes Reviewed: Yes - History of Present Illness HPI Narrative: 78-year-old female past no history of aortic valve replacement 2, 2-3 stents and COPD, TIAs presents to the emergency department with chest pain as well as back pain. Patient states the back pain is in the center of her back does not change with palpation. Says has been going on for 4 days when she was walking said that the pain came on while she was at the store. She has the pain has been off and on describes as 6 out 10 aching pain. It is nonradiating. She has not taken anything for the pain. Patient does take full dose aspirin daily. Patient otherwise has no complaints including fevers, chills, nausea, vomiting, headaches, blurry vision, neck pain,, shortness of breath, abdominal pain, change in balance, pain with urination, pain or tingling going down the arms or legs or generalized weakness. Severity scale (1-10): 0 - Related Data Home Medications Medication Instructions Recorded Confirmed Ergocalciferol (VITAMIN D2) 50,000 unit PO QWEEK 10/21/15 08/15/17 [Drisdol (50,000 Unit)] Omeprazole [PriLOSEC] 20 mg PO BIDAC 10/21/15 08/15/17 Albuterol Sulfate [Proair Hfa] 2 puff IH Q4H PRN 10/18/16 08/15/17 Budesonide/Formoterol 160/4.5 1 puff IH DAILY 10/18/16 08/15/17 [Symbicort 160/4.5] Donepezil HCl [Aricept] 10 mg PO DAILY 10/18/16 08/15/17 Folic Acid 0.4 mg PO DAILY 10/18/16 08/15/17 Furosemide [Lasix] 10 mg PO DAILY 10/18/16 08/15/17 Ipratropium [ATROVENT Inhaler] 1 puff IH DAILY 10/18/16 08/15/17 Melatonin [Melatin] 3 mg PO HS 10/18/16 08/15/17 Nitroglycerin [Nitrostat] 0.4 mg SL AD PRN 10/18/16 08/15/17 Oxygen 1 each .ROUTE AD 10/18/16 08/15/17 Potassium Chloride [Klor-Con 10] 20 meq PO DAILY 10/18/16 08/15/17 Sertraline [Zoloft] 100 mg PO DAILY 10/18/16 08/15/17 Tiotropium [Spiriva] 18 mcg IH DAILY 10/18/16 08/15/17 diazePAM [Valium] 10 mg PO BID 10/18/16 08/15/17 Ezetimibe/Simvastatin [Vytorin 1 tab PO DAILY 08/14/18 08/14/18 10-20 mg Tablet] Losartan [Cozaar] 25 mg PO DAILY 08/14/18 08/14/18 Metoprolol Tartrate [Metoprolol 50 mg PO BID 08/14/18 08/14/18 Tartrate] Previous Rx's Medication Instructions Recorded HYDROcodone/Acet 5/325 mg [[place] 1 tab PO Q6HR PRN #15 tablet 01/12/16 5-325 mg] Aspirin Enteric Coated [Aspirin EC] 81 mg PO DAILY #30 tablet. 08/19/17 Allergies Allergy/AdvReac Type Severity Reaction Status Date / Time codeine Allergy Hives Verified 10/18/16 10:11 iodine Allergy Hives Verified 10/18/16 10:11 methotrexate Allergy Hives Verified 10/18/16 10:11 All systems ED: reviewed and negative except as stated. Review of Systems: As Per HPI Chest Pain PMH - Past Medical History Medical history: Reports: atrial fibrillation, CHF, COPD, coronary artery disease, fibromyalgia, GERD, hyperlipidemia, hypertension, TIA Surgical history: Reports: heart valve replacement, pacemaker/AICD Psychiatric history: Reports: anxiety, depression - Social History Smoking Status: Never smoker Alcohol use: Reports: none Drug use: Reports: none Physical Exam - General Limitations: no limitations General appearance: alert, in no apparent distress - Head Head exam: atraumatic, normocephalic, normal inspection - Eye Eye exam: Present: normal appearance, PERRL, EOMI - ENT ENT exam: normal exam, normal oropharynx, mucous membranes moist - Neck Neck exam: Present: normal inspection, full ROM, trachea midline - Chest Chest inspection: Present: normal inspection, symmetric chest wall rise. Absent : tenderness - Respiratory Respiratory exam: Present: normal lung sounds bilaterally. Absent: respiratory distress, wheezes, stridor, accessory muscle use - Cardiovascular Cardiovascular exam: Present: regular rate, normal rhythm, normal heart sounds - Abdominal Exam Abdominal exam: Present: soft, Non-Tender, normal bowel sounds. Absent: tenderness, distention, guarding, rebound, rigidity - Extremities Exam Extremities exam: Present: normal inspection, full ROM. Absent: tenderness, pedal edema - Expanded Lower Extremity Exam Neurovascular/Tendon exam: Present: normal capillary refill. Absent: pulse deficit, motor deficit, sensory deficit, tendon deficit - Back Exam Back exam: Present: normal inspection, full ROM. Absent: tenderness, CVA tenderness (R), CVA tenderness (L) - Neurological Exam Neurological exam: Present: alert, oriented X3 - Skin Skin exam: Present: warm, dry, intact, normal color Course Course Narrative: We will do basic chest pain workup including CBC, BMP, troponin, EKG, chest x- ray as well as coags. We will give patient sublingual nitroglycerin for her chest pain. Patient artery took a full dose aspirin. Patient most likely will be admitted for further evaluation. A she was sent over from the cardiology office where she had her pacemaker interrogated where they said that she has been having multiple runs of V. tach that were not sustained. - Consultations Consultation #1: Spoke with on-call cardiology Dr. Wayne who agrees with our plans and they will see the patient when I get to the floor. Time: 16:38 Vital Signs Temperature 98.1 F 08/14/18 14:10 Pulse Rate 66 08/14/18 14:10 Respiratory Rate 16 08/14/18 14:10 Blood Pressure 126/66 08/14/18 14:10 O2 Sat by Pulse Oximetry 97 08/14/18 14:10 Temperature 98.1 F 08/14/18 14:10 Pulse Rate 62 08/14/18 17:30 Respiratory Rate 18 08/14/18 17:30 Blood Pressure 145/77 08/14/18 17:30 O2 Sat by Pulse Oximetry 97 08/14/18 17:30 Oxygen Delivery Oxygen Delivery Room Air Chest Pain - MDM Narrative Medical decision making narrative: Patient here with chest pain is going into her back. We did look at old CT [place] chest 1 year ago that showed no signs of aneurysms is very low likelihood of this being aortic aneurysm rupture at this time. We will do basic labs all were normal troponin was negative. Patient did have a mildly low hemoglobin did show microcytic anemia. This will be worked up in the hospital setting as there is no acute bleeding seen at this time or any signs of acute bleeding. EKG did have pacing as well as skull valley beats. Patient did have her pacer interrogated today cardiology was did show runs of V. tach. Due to this we placed the pacer pads on the patient. Patient does not have a defibrillator so she needs to be admitted for further evaluation and for possible defibrillation placement tomorrow. Patient was given nitroglycerin which did take her chest pain completely away. Patient was not given aspirin here in the emergency department as she does take full dose at home. She took that today. I spoke with the on-call chief librarian branch Dr. Wayne who agreed with the plan is said they will see the patient when they get to the floor. I also spoke with the hospitalist Dr. Willams who agreed to admit the patient to their service. Patient admitted in stable condition. Chest X-Ray 08/14/18 14:25 IMPRESSION: No acute process. D/ / Jorge Chong MD / Jorge Chong MD Interpreting Provider: Jorge Chong MD - Medical Records Medical records reviewed: Yes I reviewed the patient's medical records. - Lab Data Lab results reviewed: Yes I reviewed the patient's lab results. Result diagrams: 08/14/18 14:38 08/14/18 14:38 Lab Results 08/14/18 08/14/18 08/14/18 Range/Units 14:38 14:38 14:38 WBC 15.3 H (4.3-11.1) K/mcL RBC 4.78 (3.82-4.97) M/mcL Hgb 9.7 L (11.5-15.4) g/dL Hct 33.3 L (35.3-44.9) % MCV 69.7 L (83.0-100.0) fL MCH 20.3 L (28.0-33.3) pg MCHC 29.1 L (31.6-35.5) g/dL RDW 17.0 H (11.5-14.5) % Plt Count 299 (140-400) K/mcL MPV 10.2 (9.4-12.4) fL Immature Gran % 0.5 (0-4) % Seg Neutrophils % 69.2 % Lymphocytes % 21.4 % Monocytes % 7.5 % Eosinophils % 1.0 % Basophils % 0.4 % Neutrophils # 10.6 H (1.6-8.9) K/mcL Lymphocytes # 3.3 (0.6-4.6) K/mcL Monocytes # 1.2 (0.0-1.3) K/mcL Eosinophils # 0.2 (0.0-0.6) K/mcL Basophils # 0.1 (0.0-0.2) K/mcL Platelet Estimate Normal (Normal) Anisocytosis 1+ A (Not Present) Microcytosis Present A (Not Present) PT 10.9 (9.4-12.1) Seconds INR 1.0 APTT 29.1 (26.0-36.0) Seconds Sodium 137 (136-145) mEq/L Potassium 4.0 (3.5-5.1) mEq/L Chloride 100 (98-107) mEq/L Carbon Dioxide 28 (23-29) mEq/L BUN 26 H (8-23) mg/dL Creatinine 1.04 (0.60-1.20) mg/dL Est GFR ( Amer) > 60 (> 60) Est GFR (Non-Af Amer) 51 L (> 60) BUN/Creatinine Ratio 25 (6-26) Glucose 91 (70-105) mg/dL Calculated Osmolality 288 (280-300) Calcium 9.8 (8.6-10.3) mg/dL Phosphorus 3.4 (2.7-4.5) mg/dL Magnesium 2.1 (1.6-2.6) mg/dL Troponin I < 0.03 (< 0.04) ng/mL - Radiology Data Radiology results reviewed: Yes I reviewed the patient's radiology results. - EKG Data EKG attestation: Yes I reviewed and interpreted this EKG. EKG results narrative: EKG done at 1420 review myself and attending shows an atrial ventricular dual paced complexes at a rate of 64, RI able to 38, QRS 77, QTC 455. There is no acute ST changes no acute T-wave changes nor signs of ischemia. There are runs of skull [place] beats as well as ventricular paced an atrial paced single beats. No signs of heart block, hypertrophy, heart strain. No WPW/[place]/HOCM. EKG is unchanged minus the skull valley and atrial beats seen in this new one when compared with old one done 08/15/17. The old one only shows a atrial and ventricular paced rhythm. Heart Score - Score History: Moderately Suspicious EKG: Non Specific repolarisation Disturbance Age: Greater than 65 Risk Factors: Equal/Greater than 3 risk factor or history of atherosclerotic disease Troponin: Less than normal limit HEART Score Total: 6 Attestation Statement - Attestation Attestation: I, Genaro Tirado DO, examined this patient [id number] and my medical decision-making was reviewed with Dr. Bogdan Tavares, Resident Physician. I agree with the documented findings, disposition and treatment plan as described except to the extent set forth below. Please see my progress notes for details.
[2018-08-14] MEDS ORDERED: Aspirin 81 MG TAB.CHEW ONE (15:19)
[2018-08-14 15:37] LABS: Basophils # 0.1 K/mcL (0.0-0.2); Basophils % 0.4 %; Eosinophils # 0.2 K/mcL (0.0-0.6); Hematocrit 33.3 % (35.3-44.9); Hemoglobin 9.7 g/dL (11.5-15.4); Immature Granulocytes % 0.5 % (0-4); Lymphocytes # 3.3 K/mcL (0.6-4.6); Lymphocytes % 21.4 %; Mean Corpuscular HGB Conc 29.1 g/dL (31.6-35.5); Mean Corpuscular Hemoglobin 20.3 pg (28.0-33.3); Mean Corpuscular Volume 69.7 fL (83.0-100.0); Mean Platelet Volume 10.2 fL (9.4-12.4); Monocytes # 1.2 K/mcL (0.0-1.3); Monocytes % 7.5 %; Neutrophils # 10.6 K/mcL (1.6-8.9); Platelet Count 299 K/mcL (140-400); Red Blood Count 4.78 M/mcL (3.82-4.97); Segmented Neutrophils % 69.2 %
[2018-08-14 15:38] LABS: Anisocytosis 1+ (Not Present); Microcytosis Present (Not Present); Platelet Estimate Normal (Normal)
[2018-08-14 15:43] LABS: Prothrombin Time 10.9 Seconds (9.4-12.1)
[2018-08-14 15:46] LABS: Activated Partial Thrombo Time 29.1 Seconds (26.0-36.0)
[2018-08-14 15:51] LABS: BUN/Creatinine Ratio 25 (6-26); Blood Urea Nitrogen 26 mg/dL (8-23); Calcium 9.8 mg/dL (8.6-10.3); Carbon Dioxide 28 mEq/L (23-29); Chloride 100 mEq/L (98-107); Glucose 91 mg/dL (70-105); Magnesium 2.1 mg/dL (1.6-2.6); Osmolality,Calculated 288 (280-300); Phosphorous 3.4 mg/dL (2.7-4.5); Sodium 137 mEq/L (136-145); Troponin I < 0.03 ng/mL (< 0.04); eGFR For Non-African Americans 51 (> 60)
--- NOTE | 2018-08-14 17:22 | Emergency Department Note ---
Disposition Clinical Impression: History of aortic valve replacement with bioprosthetic valve Cardiac arrhythmia Qualifiers: Arrhythmia type: ventricular tachycardia Qualified Code(s): I47.2 - Ventricular tachycardia Chest pain Qualifiers: Chest pain type: unspecified Qualified Code(s): R07.9 - Chest pain, unspecified Disposition: Admitted As Inpatient Condition: Fair Referrals: Joseph Mueller MD [Primary Care Provider] - Forms: ED Satisfaction Letter Time of Disposition: 17:48 General Adult HPI - General Chief complaint: ED Chest Pain Stated complaint: Chest Back L Arm Pain Time Seen by Provider: 08/14/18 14:12 Source: patient Mode of arrival: wheelchair Limitations: no limitations - History of Present Illness Pain Scale: 0 - Related Data Home Medications Medication Instructions Recorded Confirmed Ergocalciferol (VITAMIN D2) 50,000 unit PO QWEEK 10/21/15 08/14/18 [Drisdol (50,000 Unit)] Omeprazole [PriLOSEC] 20 mg PO BIDAC 10/21/15 08/14/18 Albuterol Sulfate [Proair Hfa] 2 puff IH Q4H PRN 10/18/16 08/14/18 Budesonide/Formoterol 160/4.5 1 puff IH DAILY 10/18/16 08/14/18 [Symbicort 160/4.5] Donepezil HCl [Aricept] 10 mg PO DAILY 10/18/16 08/14/18 Folic Acid 0.4 mg PO DAILY 10/18/16 08/14/18 Furosemide [Lasix] 20 mg PO DAILY PRN 10/18/16 08/14/18 Ipratropium [ATROVENT Inhaler] 1 puff IH DAILY 10/18/16 08/14/18 Melatonin [Melatin] 3 mg PO HS 10/18/16 08/14/18 Nitroglycerin [Nitrostat] 0.4 mg SL AD PRN 10/18/16 08/14/18 Oxygen 1 each .ROUTE AD 10/18/16 08/14/18 Potassium Chloride [Klor-Con 10] 20 meq PO DAILY 10/18/16 08/14/18 Sertraline [Zoloft] 100 mg PO DAILY 10/18/16 08/14/18 Tiotropium [Spiriva] 18 mcg IH DAILY 10/18/16 08/14/18 diazePAM [Valium] 5 mg PO BID PRN 10/18/16 08/14/18 Ezetimibe/Simvastatin [Vytorin 1 tab PO DAILY 08/14/18 08/14/18 10-20 mg Tablet] Losartan [Cozaar] 25 mg PO DAILY 08/14/18 08/14/18 Metoprolol Tartrate [Metoprolol 50 mg PO BID 08/14/18 08/14/18 Tartrate] Previous Rx's Medication Instructions Recorded HYDROcodone/Acet 5/325 mg [[place] 1 tab PO Q6HR PRN #15 tablet 01/12/16 5-325 mg] Aspirin Enteric Coated [Aspirin EC] 81 mg PO DAILY #30 tablet. 08/19/17 Allergies Allergy/AdvReac Type Severity Reaction Status Date / Time codeine Allergy Hives Verified 10/18/16 10:11 iodine Allergy Hives Verified 10/18/16 10:11 methotrexate Allergy Hives Verified 10/18/16 10:11 Past Medical History - Past Medical History Medical history: Reports: atrial fibrillation, CHF, COPD, coronary artery disease, fibromyalgia, GERD, hyperlipidemia, hypertension, TIA Surgical history: Reports: heart valve replacement, pacemaker/AICD Psychiatric history: Reports: anxiety, depression - Social History Smoking Status: Never smoker Smokeless Tobacco Status: No Alcohol use: Reports: none Drug use: Reports: none Physical Exam - General Limitations: no limitations General appearance: alert, in no apparent distress Course Vital Signs Temperature 98.1 F 08/14/18 14:10 Pulse Rate 66 08/14/18 14:10 Respiratory Rate 16 08/14/18 14:10 Blood Pressure 126/66 08/14/18 14:10 O2 Sat by Pulse Oximetry 97 08/14/18 14:10 Temperature 98.1 F 08/14/18 14:10 Pulse Rate 63 08/14/18 16:30 Respiratory Rate 18 08/14/18 16:30 Blood Pressure 149/75 08/14/18 16:30 O2 Sat by Pulse Oximetry 98 08/14/18 16:30 Oxygen Delivery Oxygen Delivery Room Air Medical Decision Making - Lab Data Result diagrams: 08/14/18 14:38 08/14/18 14:38 Lab Results 08/14/18 08/14/18 08/14/18 Range/Units 14:38 14:38 14:38 WBC 15.3 H (4.3-11.1) K/mcL RBC 4.78 (3.82-4.97) M/mcL Hgb 9.7 L (11.5-15.4) g/dL Hct 33.3 L (35.3-44.9) % MCV 69.7 L (83.0-100.0) fL MCH 20.3 L (28.0-33.3) pg MCHC 29.1 L (31.6-35.5) g/dL RDW 17.0 H (11.5-14.5) % Plt Count 299 (140-400) K/mcL MPV 10.2 (9.4-12.4) fL Immature Gran % 0.5 (0-4) % Seg Neutrophils % 69.2 % Lymphocytes % 21.4 % Monocytes % 7.5 % Eosinophils % 1.0 % Basophils % 0.4 % Neutrophils # 10.6 H (1.6-8.9) K/mcL Lymphocytes # 3.3 (0.6-4.6) K/mcL Monocytes # 1.2 (0.0-1.3) K/mcL Eosinophils # 0.2 (0.0-0.6) K/mcL Basophils # 0.1 (0.0-0.2) K/mcL Platelet Estimate Normal (Normal) Anisocytosis 1+ A (Not Present) Microcytosis Present A (Not Present) PT 10.9 (9.4-12.1) Seconds INR 1.0 APTT 29.1 (26.0-36.0) Seconds Sodium 137 (136-145) mEq/L Potassium 4.0 (3.5-5.1) mEq/L Chloride 100 (98-107) mEq/L Carbon Dioxide 28 (23-29) mEq/L BUN 26 H (8-23) mg/dL Creatinine 1.04 (0.60-1.20) mg/dL Est GFR ( Amer) > 60 (> 60) Est GFR (Non-Af Amer) 51 L (> 60) BUN/Creatinine Ratio 25 (6-26) Glucose 91 (70-105) mg/dL Calculated Osmolality 288 (280-300) Calcium 9.8 (8.6-10.3) mg/dL Phosphorus 3.4 (2.7-4.5) mg/dL Magnesium 2.1 (1.6-2.6) mg/dL Troponin I < 0.03 (< 0.04) ng/mL Attestation Statement - Attestation Attestation: I, Genaro Tirado DO, examined this patient [id number] and my medical decision-making was reviewed with Dr. Bogdan Tavares, Resident Physician. I agree with the documented findings, disposition and treatment plan as described except to the extent set forth below. Please see my progress notes for details. 78-year-old female presents to the emergency room for evaluation of cardiac arrhythmia. Patient was seen in the cardiology office today secondary to chest pains were present for approximately 4 days ago. Presents with 4 days ago the patient had an onset of initially wall walking around a store. She felt very diaphoretic and uncomfortable and had chest tightness and pain. Patient had what was most likely ventricular tachycardia based on the interrogation of her cardiac pacemaker. Patient had interrogation completed at the cardiology office today which showed ventricular tachycardia. Because of the persistent chest pain and recommended come in the emergency room for evaluation. Patient is denying any chest pain initially on evaluation at the bedside. She denies any falls or injuries. No new medications. She does have a history of 2 valve replacements of the same aortic valve. 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 Vital signs otherwise unremarkable. Patient is alert she is oriented she speaks in full sentences. Concern is noted for cardiac versus vascular related etiology causing the symptoms here today. Patient also has a ventricular tachycardia is most likely the source to her near-syncopal event [place]. Patient will have detailed workup including EKG CBC chemistry troponin chest x-ray completed here in the emergency department. All electrolytes will be evaluated. Cardiac pacemaker pads will be placed. Patient will be evaluated and admission process to be established. Patient otherwise asymptomatic at this time. See detailed documentation the physical exam, medical intervention, medical decision-making and disposition the resident physician's note. No critical care provider the patient's treatment course at this time. 1700 Patient has not shown any acute signs of cardiac arrhythmia. Pain is been 0 throughout the entire treatment course are in the emergency department. Cardiology was contacted to inform them that the patient will be admitted for V. tach arrhythmia and no defibrillator in place. She will be observed here in the hospital setting until it is determined whether or not she does need a defibrillator to be placed with her pacemaker. No other recommendations from cardiology at this time. The hospitalist Dr. Willams was contacted had no other concerns or issues this time. Patient will be admitted for continuation of care and observation.
--- NOTE | 2018-08-14 17:47 | Internal Med History&Physical ---
Date of Encounter: 08/14/18 Time of Encounter: 16:00 Internal Medicine - H&P: HPI Chief complaint: chest pain History of present illness: Patient is a 78-year-old female with past medical history significant for coronary arterial disease (LAD stent) aortic valve replacement with bioprosthetic valvex 2, atrial fibrillation, CHF, hypertension and hyperlipidemia who presents to the ER on 08/14/18 due to chest pain. Per family who are at bedside, patient has had chest discomfort for the last 4 days but refused to go in for evaluation. Patient describes chest pain in the center of her back which radiates to her left side of her neck and down her left arm. Patient was also diaphoretic. Patient had scheduled follow-up at the cardiologists office today and due to paced rhythm was recommended to come into the ER for evaluation. In the ER, patient was negative troponin 1 in no acute findings on chest x-ray. Patient will be admitted to medical surgical floor for evaluation by cardiology for chest pain. Past Med Surg Social Fam HX - Past Medical History Medical history: atrial fibrillation, CHF, COPD, coronary artery disease, fibromyalgia, GERD, hyperlipidemia, hypertension, TIA Additional medical history: hiatal hernia, aortic stenosis, Psychiatric history: anxiety, depression - Past Surgical History Surgical History: heart valve replacement, pacemaker/AICD Additional surgical history: Mitral valve surgery - Social History Smoking Status: Never smoker Smokeless Tobacco Status: No Alcohol use: none Drug use: none - Family History Mother Living Status: Hx Family Cardiac Disorders: Yes Father Living Status: Hx Family Cardiac Disorders: Yes Internal Medicine - H&P: Meds Ergocalciferol (VITAMIN D2) [Drisdol (50,000 Unit)] 50,000 unit PO QWEEK [History] Omeprazole [PriLOSEC] 20 mg PO BIDAC 10/21/15 [History] HYDROcodone/Acet 5/325 mg [[place] 5-325 mg] 1 tab PO Q6HR PRN #15 tablet [Rx] Albuterol Sulfate [Proair Hfa] 2 puff IH Q4H PRN 10/18/16 [History] Budesonide/Formoterol 160/4.5 [Symbicort 160/4.5] 1 puff IH DAILY 10/18/16 [ History] Donepezil HCl [Aricept] 10 mg PO DAILY 10/18/16 [History] Folic Acid 0.4 mg PO DAILY 10/18/16 [History] Furosemide [Lasix] 20 mg PO DAILY PRN 10/18/16 [History] Ipratropium [ATROVENT Inhaler] 1 puff IH DAILY 10/18/16 [History] Melatonin [Melatin] 3 mg PO HS 10/18/16 [History] Nitroglycerin [Nitrostat] 0.4 mg SL AD PRN 10/18/16 [History] Oxygen 1 each .ROUTE AD 10/18/16 [History] Potassium Chloride [Klor-Con 10] 20 meq PO DAILY 10/18/16 [History] Sertraline [Zoloft] 100 mg PO DAILY 10/18/16 [History] Tiotropium [Spiriva] 18 mcg IH DAILY 10/18/16 [History] diazePAM [Valium] 5 mg PO BID PRN 10/18/16 [History] Aspirin Enteric Coated [Aspirin EC] 81 mg PO DAILY #30 tablet. 08/19/17 [Rx] Ezetimibe/Simvastatin [Vytorin 10-20 mg Tablet] 1 tab PO DAILY 08/14/18 [History ] Losartan [Cozaar] 25 mg PO DAILY 08/14/18 [History] Metoprolol Tartrate [Metoprolol Tartrate] 50 mg PO BID 08/14/18 [History] 3 Allergy/AdvReac Type Severity Reaction Status Date / Time codeine Allergy Hives Verified 10/18/16 10:11 iodine Allergy Hives Verified 10/18/16 10:11 methotrexate Allergy Hives Verified 10/18/16 10:11 All Systems PM: A 10-system review of systems was performed and is negative for pertinent findings except as documented above in the HPI. - Constitutional Vitals: Temp Pulse Resp BP Pulse Ox 98.1 F 62 18 145/77 97 08/14/18 14:10 08/14/18 17:30 08/14/18 17:30 08/14/18 17:30 08/14/18 17:30 General appearance: Present: A&O X 3, no acute distress Exam: As below - Eye Eye exam: Present: normal appearance - Respiratory Respiratory exam: Present: CTAB. Absent: accessory muscle use, rales, rhonchi, wheezes - Cardiovascular Cardiovascular exam: Present: RRR, +S1, +S2. Absent: diastolic murmur, gallop, rubs, systolic murmur - GI/Abdominal GI/Abdominal exam: Present: normal bowel sounds, soft, no peritoneal signs. Absent: distended, tenderness - Extremities Exam Extremities exam: Absent: pedal edema - Neurological Exam Neurological exam: Present: oriented X3 - Psychiatric Psychiatric exam: Present: normal mood - Skin Skin exam: Present: normal color Internal Med - H&P Results - Labs CBC & Chem 7: 08/14/18 14:38 08/14/18 14:38 Labs: Short CBC 08/14/18 Range/Units 14:38 WBC 15.3 H (4.3-11.1) K/mcL Hgb 9.7 L (11.5-15.4) g/dL Hct 33.3 L (35.3-44.9) % Plt Count 299 (140-400) K/mcL Neutrophils # 10.6 H (1.6-8.9) K/mcL BMP 08/14/18 14:38 Sodium 137 Potassium 4.0 Chloride 100 Carbon Dioxide 28 BUN 26 H Creatinine 1.04 Glucose 91 Calcium 9.8 Cardiac Enzymes 08/14/18 Range/Units 14:38 Troponin I < 0.03 (< 0.04) ng/mL - Impressions ITS Impressions Chest X-Ray 08/14/18 14:25 IMPRESSION: No acute process. D/ / Jorge Chong MD / Jorge Chong MD Interpreting Provider: Jorge Chong MD - Assessment and plan (1) Chest pain Current Visit: Yes Status: Acute Assessment and plan: Patient with a four-day history of chest pain and was seen and evaluated by cardiology as an outpatient with recommendation for inpatient treatment due to paced rhythm on defibrillator. First set of troponins negative in the ER; we will trend serial troponins and monitor on telemetry Cardiology consulted and appreciate recommendations Qualifiers: Chest pain type: unspecified Qualified Code(s): R07.9 - Chest pain, unspecified (2) History of aortic valve replacement with bioprosthetic valve Current Visit: Yes Status: Chronic Assessment and plan: Patient with aortic for replacement 2 (3) Anemia Current Visit: No Status: Acute Assessment and plan: Hemoglobin about at baseline; continue to monitor Qualifiers: Anemia type: unspecified type Qualified Code(s): D64.9 - Anemia, unspecified (4) CAD (coronary artery disease) Current Visit: No Status: Acute Assessment and plan: Continue beta shae and ARB hibitor Qualifiers: Coronary Disease-Associated Artery/Lesion type: [place] artery [place] vs. transplanted heart: [place] heart Associated angina: without angina Qualified Code(s): I25.10 - Atherosclerotic heart disease of [place] coronary artery without angina pectoris (5) Diastolic CHF Current Visit: No Status: Acute Assessment and plan: Patient euvolemic; continue furosemide 20 mg as needed Qualifiers: Heart failure chronicity: chronic Qualified Code(s): I50.32 - Chronic diastolic (congestive) heart failure (6) Afib Current Visit: No Status: Chronic Assessment and plan: Rate controlled; continue beta shae Qualifiers: Atrial fibrillation type: unspecified Qualified Code(s): I48.91 - Unspecified atrial fibrillation (7) DVT prophylaxis Current Visit: No Status: Acute Assessment and plan: Subcutaneous heparin - Time Spent With Patient Total time spent is greater than 50% in coordination of care (as documented) at patient's floor/unit and/or counseling patient:
[2018-08-14] MEDS ORDERED: Naloxone 0.4 MG/ML INJ IVP PRN (18:06)
[2018-08-14] MEDS ORDERED: *HR* HYDROcodone/Acet 5/325 mg TABLET PO PRN (18:08)
[2018-08-14] MEDS ORDERED: Furosemide 20 MG TABLET PO PRN (18:08)
[2018-08-14] MEDS ORDERED: NON-FORMULARY MEDICATION 1 EACH EACH (Oxygen [Oxygen] 1 EACH) SCH (18:15)
[2018-08-14] MEDS: diazePAM 5 MG TABLET PO PRN (22:47)
[2018-08-14] MEDS: Melatonin 3 MG TABLET PO SCH (22:47)
[2018-08-14] MEDS ORDERED: Nitroglycerin 0.4 MG TAB.SUBL SL PRN (23:41)
[2018-08-15 01:08] LABS: Bilirubin,Urine Negative (Negative); Blood,Urine Negative (Negative); Clarity,Urine Cloudy (Clear); Color,Urine Yellow (Yellow); Glucose,Urine (UA) Normal (Normal); Ketones,Urine Negative (Negative); Leukocyte Esterase,Urine Small (Negative); Nitrite,Urine Positive (Negative); PH,Urine 6.5 pH Units (5.0-8.0); Protein,Urine Negative (Neg-Trace); Specific Gravity,Urine 1.013 (1.010-1.025); Urobilinogen,Urine Normal (Normal)
[2018-08-15 01:10] LABS: Bacteria,Urine Many per hpf (None-Few); Hyaline Casts,Urine None Seen per lpf (None-Few); RBC,Urine 0-3 per hpf (0-3); Squamous Epithelial Cell,Urine Many per lpf (None-Few)
[2018-08-15 04:12] LABS: Immature Granulocytes % 0.3 % (0-4)
[2018-08-15 04:13] LABS: Hematocrit 34.2 % (35.3-44.9); Hemoglobin 9.7 g/dL (11.5-15.4); Lymphocytes % 25.1 %; Mean Corpuscular HGB Conc 28.4 g/dL (31.6-35.5); Mean Corpuscular Volume 70.4 fL (83.0-100.0); Mean Platelet Volume 9.9 fL (9.4-12.4); Monocytes % 8.8 %; Platelet Count 269 K/mcL (140-400); Red Blood Count 4.86 M/mcL (3.82-4.97); Segmented Neutrophils % 63.7 %
[2018-08-15 04:14] LABS: Basophils # 0.1 K/mcL (0.0-0.2); Basophils % 0.3 %; Eosinophils # 0.3 K/mcL (0.0-0.6); Eosinophils % 1.8 %; Lymphocytes # 3.8 K/mcL (0.6-4.6); Monocytes # 1.3 K/mcL (0.0-1.3)
[2018-08-15 04:28] LABS: Neutrophils # 9.7 K/mcL (1.6-8.9)
[2018-08-15 04:29] LABS: Calcium 10.1 mg/dL (8.6-10.3); Potassium 4.7 mEq/L (3.5-5.1)
[2018-08-15] MEDS: *HR* Heparin 5,000 UNIT/ML VIAL SQ SCH ×3 (06:03→21:54)
[2018-08-15 06:29] LABS: Hypochromasia Present (Not Present); Platelet Estimate Normal (Normal)
[2018-08-15] MEDS ORDERED: Ipratropium 1 PUFF INHALER IH SCH (09:00)
[2018-08-15] MEDS ORDERED: VYTORIN PO SCH (09:00)
[2018-08-15] MEDS ORDERED: Cholecalciferol (D-3) 1,000 UNIT TABLET PO SCH (09:00)
--- NOTE | 2018-08-15 11:07 | Cardiology Consult Note ---
Date of Encounter: 08/15/18 Time of Encounter: 11:03 Assessment and Plan (1) Cardiac arrhythmia Current Visit: Yes Status: Acute Pacemaker device check completed 08/14/2018 reviewed. There is 2 events of NSVT most recently on August 14 of an a.m. Apparently this lasted for 30 seconds. We will have our electrophysiologists review the device check to confirm rhythm. Telemetry review shows no NSVT. Intermittent AV pacing seen. Keep potassium above 4.0 and magnesium above 2.0. Check TTE.. Qualifiers: Arrhythmia type: unspecified cardiac arrhythmia Qualified Code(s): I49.9 - Cardiac arrhythmia, unspecified (2) Chest pain Current Visit: Yes Status: Acute Complains of mid scapular pain and neck pain that occurs intermittently. She describes one episode of pain that occurred after walking [place] a shopping center. History of CAD status post PCI to the LAD in the past. EKG shows AV pacing. Troponins are negative. We will check TTE. Possible stress test versus [facility] tomorrow. Qualifiers: Chest pain type: unspecified Qualified Code(s): R07.9 - Chest pain, unspecified (3) History of aortic valve replacement with bioprosthetic valve Current Visit: Yes Status: Chronic S/p AVR X2. Last TTE 11/2017- LVEF 60-65%. Normal LV chamber size, wall thickness and function. Mild left ventricular diastolic dysfunction. Atypical septal motion consistent with post-operative status. Status-post bioprosthetic aortic valve, which appears well seated. No prosthetic aortic regurgitation or stenosis. Status-post mitral valve repair. Calcification of the annulus noted. Mild to moderate mitral regurgitation. No significant mitral stenosis. Mean gradient 4 mmHg (HR 60 bpm).Status-post tricuspid valve repair. Trace tricuspid regurgitation. No tricuspid stenosis. No evidence of pulmonary hypertension identified. (4) Afib Current Visit: No Status: Chronic Qualifiers: Atrial fibrillation type: unspecified Qualified Code(s): I48.91 - Unspecified atrial fibrillation (5) CAD (coronary artery disease) Current Visit: No Status: Chronic Continue asa, statin, and bb. [facility] 08/2018-single vessel CAD, patent LAD stent. Qualifiers: Coronary Disease-Associated Artery/Lesion type: [place] artery [place] vs. transplanted heart: [place] heart Associated angina: without angina Qualified Code(s): I25.10 - Atherosclerotic heart disease of [place] coronary artery without angina pectoris Discussion w patient/family: The assessment and plan as outlined above was discussed with the patient and/or family members who expressed understanding and agreement. All questions were answered. Thank you for involving us in the care of your patient. Please call with any questions. History of Present Illness Consult date: 08/15/18 Requesting physician: Vicente Peña Consult reason: Chest pain and abnormal PPM check Chief complaint: Mid scapular pain and neck pain with exertion, presyncope History of present illness: Ms. Chaidez is a 78 year old female with past medical history significant for CAD status post previous PCI, bioprosthetic aortic valve replacement 2, atrial fibrillation, and dementia. She presents from the cardiology office with a complain of chest pain for 4 days. She apparently had complain of chest pain, neck pain, and mid scapular pain after walking into [place] a few days ago. Her daughter states she was walking sideways and looked pale. They were unable to get her to go to the ER after the event. She had a scheduled pacemaker checked yesterday and was recommended to go to the ED by the glass technician/installer. She was seen had tachycardia on her device check. I spoke with the device rep who said she had sinus tachycardia. Past Med Surg Social Fam HX - Past Medical History Medical history: atrial fibrillation, CHF, COPD, coronary artery disease, fibromyalgia, GERD, hyperlipidemia, hypertension, TIA Additional medical history: hiatal hernia, aortic stenosis, Psychiatric history: anxiety, depression - Past Surgical History Surgical History: heart valve replacement, pacemaker/AICD Additional surgical history: Mitral valve surgery - Social History Smoking Status: Former smoker Smokeless Tobacco Status: No Alcohol use: none Drug use: none - Family History Mother Name: Merced Edwards Living Status: Age at : 63 Cause of : Heart Attack Hx Family Cardiac Disorders: Yes Hx Family Respiratory Disorders: No Hx Family Cancer: No Hx Family GI Disorders: No Hx Family Genitourinary Disorders: No Hx Family Endocrine Disorder: No Hx Family Musculoskeletal Disorders: No Hx Family Neuromuscular Disorders: No Hx Family Neurologic Disorders: No Hx Family HEENT Disorders: No Hx Family Autoimmune Disorders: No Hx Family Reproductive Disorders: No Hx Family Psychosocial Disorders: No Hx Family Medical Disorders: No Father Name: Camilo Al Family Member Ethnicity: Non- Living Status: Age at : 65 Cause of : Heart attack Hx Family Cardiac Disorders: Yes Hx Family Respiratory Disorders: Yes (COPD) Hx Family Cancer: No Hx Family GI Disorders: No Hx Family Genitourinary Disorders: No Hx Family Endocrine Disorder: No Hx Family Musculoskeletal Disorders: No Hx Family Neuromuscular Disorders: No Hx Family Neurologic Disorders: No Hx Family HEENT Disorders: No Hx Family Autoimmune Disorders: No Hx Family Reproductive Disorders: No Hx Family Psychosocial Disorders: No Hx Family Medical Disorders: No Medications and Allergies Ergocalciferol (VITAMIN D2) [Drisdol (50,000 Unit)] 50,000 unit PO QWEEK [History] Omeprazole [PriLOSEC] 20 mg PO BIDAC 10/21/15 [History] HYDROcodone/Acet 5/325 mg [[place] 5-325 mg] 1 tab PO Q6HR PRN #15 tablet [Rx] Albuterol Sulfate [Proair Hfa] 2 puff IH Q4H PRN 10/18/16 [History] Budesonide/Formoterol 160/4.5 [Symbicort 160/4.5] 1 puff IH DAILY 10/18/16 [ History] Donepezil HCl [Aricept] 10 mg PO DAILY 10/18/16 [History] Folic Acid 0.4 mg PO DAILY 10/18/16 [History] Furosemide [Lasix] 20 mg PO DAILY PRN 10/18/16 [History] Ipratropium [ATROVENT Inhaler] 1 puff IH DAILY 10/18/16 [History] Melatonin [Melatin] 3 mg PO HS 10/18/16 [History] Nitroglycerin [Nitrostat] 0.4 mg SL AD PRN 10/18/16 [History] Oxygen 1 each .ROUTE AD 10/18/16 [History] Potassium Chloride [Klor-Con 10] 20 meq PO DAILY 10/18/16 [History] Sertraline [Zoloft] 100 mg PO DAILY 10/18/16 [History] Tiotropium [Spiriva] 18 mcg IH DAILY 10/18/16 [History] diazePAM [Valium] 5 mg PO BID PRN 10/18/16 [History] Aspirin Enteric Coated [Aspirin EC] 81 mg PO DAILY #30 tablet.dr 08/19/17 [Rx] Ezetimibe/Simvastatin [Vytorin 10-20 mg Tablet] 1 tab PO DAILY 08/14/18 [History ] Losartan [Cozaar] 25 mg PO DAILY 08/14/18 [History] Metoprolol Tartrate [Metoprolol Tartrate] 50 mg PO BID 08/14/18 [History] 3 Allergy/AdvReac Type Severity Reaction Status Date / Time codeine Allergy Hives Verified 10/18/16 10:11 iodine Allergy Hives Verified 10/18/16 10:11 methotrexate Allergy Hives Verified 10/18/16 10:11 All Systems Review: The remainder of the systems were reviewed and are negative Results 08/15/18 03:31 08/15/18 03:31 Lab Results 08/15/18 08/15/18 08/15/18 03:31 03:31 08:19 WBC 15.2 H Hgb 9.7 L Hct 34.2 L Plt Count 269 Sodium 138 Potassium 4.7 Chloride 102 Carbon Dioxide 28 BUN 28 H Creatinine 1.07 Glucose 100 Calcium 10.1 Troponin I < 0.03 - Imaging and Cardiology Echo: report reviewed Cardiac cath: report reviewed - EKG Interpretation EKG results cardiology: personally reviewed Consult Discharge Plan - Plan Referrals: Joseph Mueller MD [Primary Care Provider] -
[2018-08-15] MEDS: Tiotropium 18 MCG inhalation IH SCH (11:17)
[2018-08-15] MEDS: Budesonide/Formoterol 160/4.5 1 PUFF INH IH SCH (11:17)
[2018-08-15] MEDS: Folic Acid 1 MG TABLET PO SCH (11:55)
[2018-08-15] MEDS: Aspirin Enteric Coated 81 MG Tablet PO SCH (11:55)
[2018-08-15] MEDS: Cholecalciferol (D-3) 1,000 UNIT TABLET PO SCH (12:14)
[2018-08-15] MEDS ORDERED: Perflutren Lipid Microsphere 1.3 ML in 0.9 % Sodium Chloride 8.7 ML IVP ONE (15:36)
--- NOTE | 2018-08-15 16:08 | Event Note ---
Date of Encounter: 08/15/18 Time of Encounter: 13:00 - Cardiology Event Note Device check was reviewed with Dr. Morgan Melo. There was no VT seen. Patient did have multiple short runs of atrial tachycardia up to three minutes long. Recommend increasing bb. Stress test ordered for evaluation tomorrow.
--- NOTE | 2018-08-15 19:23 | Internal Med Progress Note ---
Hospitalist Progress Note - Encounter Date of Encounter: 08/15/18 Time of Encounter: 11:00 - Subjective Interval History: Patient with no issues or complaints this morning. Device checked per cardiology and no ventricular tachycardia seen but multiple short runs of atrial tachycardia was present. Plans for stress tests in the a.m. - Exam Vitals: Temp Pulse Resp BP Pulse Ox 98.1 F 74 15 109/73 97 08/15/18 14:00 08/15/18 14:00 08/15/18 14:00 08/15/18 14:00 08/15/18 14:00 Exam: Gen.: Nonacute distress, alert and oriented 3 ENT: Mucosal membranes moist Respiratory: Lungs are clear to auscultation bilaterally without any wheezing rhonchi or rales Cardiovascular: Normal S1 and S2 regular rate rhythm no murmurs rubs or gallops Abdomen: Soft, nontender and nondistended with positive bowel sounds Extremities: No lower extremity edema Skin: Normal color - Assessment and Plan (1) Chest pain Current Visit: Yes Status: Acute Assessment and Plan: Patient with a four-day history of chest pain and was seen and evaluated by cardiology as an outpatient with recommendation for inpatient treatment due to paced rhythm on defibrillator. Device checked per cardiology and no ventricular tachycardia seen but multiple short runs of atrial tachycardia was present. Plans for stress tests in the a.m. (2) History of aortic valve replacement with bioprosthetic valve Current Visit: Yes Status: Chronic Assessment and Plan: Patient with aortic for replacement 2 (3) Anemia Current Visit: No Status: Acute Assessment and Plan: Hemoglobin about at baseline; continue to monitor (4) CAD (coronary artery disease) Current Visit: No Status: Chronic Assessment and Plan: Continue beta shae and ARB hibitor (5) Diastolic CHF Current Visit: No Status: Acute Assessment and Plan: Patient euvolemic; continue furosemide 20 mg as needed (6) Afib Current Visit: No Status: Chronic Assessment and Plan: Rate controlled; continue beta shae (7) DVT prophylaxis Current Visit: No Status: Acute Assessment and Plan: Subcutaneous heparin - Time Spent with Patient Total time spent is greater than 50% in coordination of care (as documented) at patient's floor/unit and/or counseling patient: Internal Medicine: Result - Labs CBC & Chem 7: 08/15/18 03:31 08/15/18 03:31 Labs: Short CBC 08/15/18 Range/Units 03:31 WBC 15.2 H (4.3-11.1) K/mcL Hgb 9.7 L (11.5-15.4) g/dL Hct 34.2 L (35.3-44.9) % Plt Count 269 (140-400) K/mcL Neutrophils # 9.7 H (1.6-8.9) K/mcL BMP 08/15/18 03:31 Sodium 138 Potassium 4.7 Chloride 102 Carbon Dioxide 28 BUN 28 H Creatinine 1.07 Glucose 100 Calcium 10.1 Cardiac Enzymes 08/15/18 Range/Units 08:19 Troponin I < 0.03 (< 0.04) ng/mL Urine 08/15/18 Range/Units 00:55 Urine Color Yellow (Yellow) Urine Clarity Cloudy A (Clear) Urine pH 6.5 (5.0-8.0) pH Units Ur Specific [place] 1.013 (1.010-1.025) Urine Protein Negative (Neg-Trace) mg/dL Urine Glucose (UA) Normal (Normal) mg/dL - ABG Interpretation ABG results: PT/INR, D-dimer PT 10.9 Seconds (9.4-12.1) 08/14/18 14:38 Consult Discharge Plan - Plan Referrals: Joseph Mueller MD [Primary Care Provider] - (1) Chest pain Qualifiers: Chest pain type: unspecified Qualified Code(s): R07.9 - Chest pain, unspecified (3) Anemia Qualifiers: Anemia type: unspecified type Qualified Code(s): D64.9 - Anemia, unspecified (4) CAD (coronary artery disease) Qualifiers: Coronary Disease-Associated Artery/Lesion type: [place] artery [place] vs. transplanted heart: [place] heart Associated angina: without angina Qualified Code(s): I25.10 - Atherosclerotic heart disease of [place] coronary artery without angina pectoris (5) Diastolic CHF Qualifiers: Heart failure chronicity: chronic Qualified Code(s): I50.32 - Chronic diastolic (congestive) heart failure (6) Afib Qualifiers: Atrial fibrillation type: unspecified Qualified Code(s): I48.91 - Unspecified atrial fibrillation
[2018-08-15] MEDS: diazePAM 5 MG TABLET PO PRN (21:54)
[2018-08-15] MEDS: Melatonin 3 MG TABLET PO SCH (21:54)
[2018-08-16] MEDS: *HR* Heparin 5,000 UNIT/ML VIAL SQ SCH ×2 (05:21→13:26)
[2018-08-16] MEDS ORDERED: Regadenoson 0.4 MG/5 ML SYRINGE IVP ONE (07:06)
[2018-08-16 07:21] VITALS: BP 108/60
[2018-08-16] MEDS: Budesonide/Formoterol 160/4.5 1 PUFF INH IH SCH (07:53)
[2018-08-16] MEDS: Tiotropium 18 MCG inhalation IH SCH (07:53)
--- NOTE | 2018-08-16 10:15 | Electrocardiograph Report ---
[address] [place], [place] [address] Test Date: 2018-08-14 Pat Name: Florecita Chaidez Department: EXAM[facility]2 Room: 2NE19 Gender: F Basket Turner: : 1940 Requested By: Bogdan Tavares Order Number: [id number] Reading MD: Jackelyn Vernon Measurements Intervals [place] Rate: 64 P: MS: 238 QRS: -1 QRSD: 97 T: 3 QT: 441 QTc: 455 Interpretive Statements Atrial and ventricular pacing Electronically Signed On 08-16-2018 10:13:55 EDT by Jackelyn Vernon
--- NOTE | 2018-08-16 10:36 | Cardiology Progress Note ---
Date of Encounter: 08/16/18 Time of Encounter: 10:34 Assessment and Plan (1) Cardiac arrhythmia Current Visit: Yes Status: Acute Pacemaker device check completed 08/14/2018 reviewed. I reviewed the device check with Dr. Morgan Melo. Patient had multiple brief episodes of SVT. There was no NSVT seen. Recommend increasing beta shae. Qualifiers: Arrhythmia type: unspecified cardiac arrhythmia Qualified Code(s): I49.9 - Cardiac arrhythmia, unspecified (2) Chest pain Current Visit: Yes Status: Acute Complains of mid scapular pain and neck pain that occurs intermittently. She describes one episode of pain that occurred after [place]. History of CAD status post PCI to the LAD in the past. EKG shows AV pacing. Troponins are negative. TTE and stress test pending. Anticipate cardiology signoff if no concerning findings on cardiac testing. Qualifiers: Chest pain type: unspecified Qualified Code(s): R07.9 - Chest pain, unspecified (3) History of aortic valve replacement with bioprosthetic valve Current Visit: Yes Status: Chronic S/p AVR X2. Last TTE 11/2017- LVEF 60-65%. Normal LV chamber size, wall thickness and function. Mild left ventricular diastolic dysfunction. Atypical septal motion consistent with post-operative status. Status-post bioprosthetic aortic valve, which appears well seated. No prosthetic aortic regurgitation or stenosis. Status-post mitral valve repair. Calcification of the annulus noted. Mild to moderate mitral regurgitation. No significant mitral stenosis. Mean gradient 4 mmHg (HR 60 bpm).Status-post tricuspid valve repair. Trace tricuspid regurgitation. No tricuspid stenosis. No evidence of pulmonary hypertension identified. (4) Afib Current Visit: No Status: Chronic Qualifiers: Atrial fibrillation type: unspecified Qualified Code(s): I48.91 - Unspecified atrial fibrillation (5) CAD (coronary artery disease) Current Visit: No Status: Chronic Continue asa, statin, and bb. [facility] 08/2018-single vessel CAD, patent LAD stent. Qualifiers: Coronary Disease-Associated Artery/Lesion type: [place] artery [place] vs. transplanted heart: [place] heart Associated angina: without angina Qualified Code(s): I25.10 - Atherosclerotic heart disease of [place] coronary artery without angina pectoris Discussion w patient/family: The assessment and plan as outlined above was discussed with the patient and/or family members who expressed understanding and agreement. All questions were answered. Thank you for involving us in the care of your patient. Please call with any questions. Subjective Principal diagnosis: Chest pain Interval history: Ms. Chaidez is undergoing stress test today. She denies recurrent chest pain. Objective Vital Signs, Last 4 Hours Temp Pulse Resp BP Pulse Ox 08/16/18 07:54 15 99 08/16/18 07:20 97.8 F 65 15 108/60 99 General: Conversant, No Apparent Distress HEENT: Atraumatic, Normocephaly, Mucus Membranes Moist Neck: No JVD, Normal carotid pulses Cardiac: Reg Rate and Rhythm, Normal S1 and S2, No Murmur Lungs: Normal Breath Sounds, No Wheeze, Rales, Rhonchi Neuro: Alert and responsive, No focal deficits noted Abdomen: Soft, Non-Tender Skin: No rashes noted on visualized skin Musculoskeletal: No Chest Wall Tenderness Extremities: No Clubbing, No Cyanosis, No Edema, Normal Pulses Results 08/15/18 03:31 08/15/18 03:31 Lab Results 08/16/18 00:25 Troponin I < 0.03 - Imaging and Cardiology Stress Test: pending Echo: report reviewed - EKG Interpretation EKG results cardiology: personally reviewed Consult Discharge Plan - Plan Referrals: Joseph Mueller MD [Primary Care Provider] -
[2018-08-16 10:50] LABS: Basophils # 0.1 K/mcL (0.0-0.2); Basophils % 0.4 %; Eosinophils # 0.2 K/mcL (0.0-0.6); Eosinophils % 1.5 %; Hematocrit 32.7 % (35.3-44.9); Hemoglobin 9.3 g/dL (11.5-15.4); Immature Granulocytes % 0.3 % (0-4); Lymphocytes # 2.6 K/mcL (0.6-4.6); Lymphocytes % 17.9 %; Mean Corpuscular HGB Conc 28.4 g/dL (31.6-35.5); Mean Corpuscular Hemoglobin 20.1 pg (28.0-33.3); Mean Corpuscular Volume 70.8 fL (83.0-100.0); Monocytes # 1.1 K/mcL (0.0-1.3); Monocytes % 7.9 %; Platelet Count 240 K/mcL (140-400); Red Blood Count 4.62 M/mcL (3.82-4.97); Red Cell Distribution Width 16.9 % (11.5-14.5)
[2018-08-16 10:51] LABS: Neutrophils # 10.4 K/mcL (1.6-8.9)
[2018-08-16] MEDS: Aspirin Enteric Coated 81 MG Tablet PO SCH (10:52)
[2018-08-16] MEDS: Folic Acid 1 MG TABLET PO SCH (10:53)
[2018-08-16] MEDS: Cholecalciferol (D-3) 1,000 UNIT TABLET PO SCH (10:53)
[2018-08-16 11:17] LABS: Hypochromasia Present (Not Present); Platelet Estimate Normal (Normal)
[2018-08-16 12:25] LABS: BUN/Creatinine Ratio 27 (6-26); Blood Urea Nitrogen 26 mg/dL (8-23); Calcium 9.7 mg/dL (8.6-10.3); Carbon Dioxide 27 mEq/L (23-29); Chloride 101 mEq/L (98-107); Glucose 88 mg/dL (70-105); Osmolality,Calculated 286 (280-300); Potassium 3.5 mEq/L (3.5-5.1); Sodium 136 mEq/L (136-145); eGFR For Non-African Americans 56 (> 60)
--- NOTE | 2018-08-16 13:58 | Discharge Summary ---
- NOTES TO OUTPATIENT PROVIDER Notes to Outpatient Provider: Follow-up with cardiology as an outpatient. Orders not resulted at time of discharge: Pending orders 08/15/18 12:19 NM pilar perf SPECT multi [NM] Routine 08/15/18 22:53 EKG [ECG 12 lead ECG] [ECG] Stat Date of Encounter: 08/16/18 Time of Encounter: 11:00 - Discharge Diagnosis (1) Chest pain Priority: Primary Status: Acute Qualifiers: Chest pain type: unspecified Qualified Code(s): R07.9 - Chest pain, unspecified (2) History of aortic valve replacement with bioprosthetic valve Priority: Secondary Status: Chronic (3) Anemia Priority: Secondary Status: Acute Qualifiers: Anemia type: unspecified type Qualified Code(s): D64.9 - Anemia, unspecified (4) CAD (coronary artery disease) Priority: Secondary Status: Chronic Qualifiers: Coronary Disease-Associated Artery/Lesion type: [place] artery [place] vs. transplanted heart: [place] heart Associated angina: without angina Qualified Code(s): I25.10 - Atherosclerotic heart disease of [place] coronary artery without angina pectoris (5) Diastolic CHF Priority: Secondary Status: Acute Qualifiers: Heart failure chronicity: chronic Qualified Code(s): I50.32 - Chronic diastolic (congestive) heart failure (6) Afib Priority: Secondary Status: Chronic Qualifiers: Atrial fibrillation type: unspecified Qualified Code(s): I48.91 - Unspecified atrial fibrillation Hospital course: Patient is a 78-year-old female with past medical history significant for coronary arterial disease (LAD stent) aortic valve replacement with bioprosthetic valvex 2, atrial fibrillation, CHF, hypertension and hyperlipidemia who presents to the ER on 08/14/18 due to chest pain. Per family who are at bedside, patient has had chest discomfort for the last 4 days but refused to go in for evaluation. Patient describes chest pain in the center of her back which radiates to her left side of her neck and down her left arm. Patient was also diaphoretic. Patient had scheduled follow-up at the cardiologists office today and due to paced rhythm was recommended to come into the ER for evaluation. In the ER, patient was negative troponin 1 in no acute findings on chest x-ray. Patient will be admitted to medical surgical floor for evaluation by cardiology for chest pain. During patients hospital stay her cardiac biomarkers were negative. Cardiology was consulted with recommendations for nuclear medicine stress tests which was negative. Cardiology with recommendations to increase patients beta shae and she will follow-up with cardiology as an outpatient. - Time Spent with Patient Total time spent providing and/or coordinating discharge services: Less than 30 minutes - Discharge Medications Prescriptions: Metoprolol [Lopressor] 75 mg PO BID #60 tablet Home Medications: Ergocalciferol (VITAMIN D2) [Drisdol (50,000 Unit)] 50,000 unit PO QWEEK [History] Omeprazole [PriLOSEC] 20 mg PO BIDAC 10/21/15 [History] HYDROcodone/Acet 5/325 mg [[place] 5-325 mg] 1 tab PO Q6HR PRN #15 tablet [Rx] Albuterol Sulfate [Proair Hfa] 2 puff IH Q4H PRN 10/18/16 [History] Budesonide/Formoterol 160/4.5 [Symbicort 160/4.5] 1 puff IH DAILY 10/18/16 [ History] Donepezil HCl [Aricept] 10 mg PO DAILY 10/18/16 [History] Folic Acid 0.4 mg PO DAILY 10/18/16 [History] Furosemide [Lasix] 20 mg PO DAILY 10/18/16 [History] Ipratropium [ATROVENT Inhaler] 1 puff IH DAILY 10/18/16 [History] Melatonin [Melatin] 3 mg PO HS 10/18/16 [History] Nitroglycerin [Nitrostat] 0.4 mg SL AD PRN 10/18/16 [History] Oxygen 1 each .ROUTE AD 10/18/16 [History] Potassium Chloride [Klor-Con 10] 20 meq PO DAILY 10/18/16 [History] Sertraline [Zoloft] 100 mg PO DAILY 10/18/16 [History] Tiotropium [Spiriva] 18 mcg IH DAILY 10/18/16 [History] diazePAM [Valium] 5 mg PO BID PRN 10/18/16 [History] Aspirin Enteric Coated [Aspirin EC] 81 mg PO DAILY #30 tablet.dr 08/19/17 [Rx] Ezetimibe/Simvastatin [Vytorin 10-20 mg Tablet] 1 tab PO DAILY 08/14/18 [History ] Losartan [Cozaar] 25 mg PO DAILY 08/14/18 [History] Metoprolol [Lopressor] 75 mg PO BID #60 tablet 08/16/18 [Rx] Allergies/Adverse Reactions: 3 Allergy/AdvReac Type Severity Reaction Status Date / Time codeine Allergy Hives Verified 10/18/16 10:11 iodine Allergy Hives Verified 10/18/16 10:11 methotrexate Allergy Hives Verified 10/18/16 10:11 Date of admission: 08/14/18 19:43 Primary care physician: Joseph Mueller MD Consults: 08/14/18 22:29 Consult to Women Nurse [CONS] Routine Reason for SW Consult: Advanced Directives, home health services. - Constitutional Vitals: Temp Pulse Resp BP Pulse Ox 97.8 F 65 15 108/60 99 08/16/18 07:20 08/16/18 07:20 08/16/18 07:54 08/16/18 07:20 08/16/18 07:54 General appearance: Present: A&O X 3, no acute distress Exam: Gen.: Nonacute distress, alert and oriented 3 ENT: Mucosal membranes moist Respiratory: Lungs are clear to auscultation bilaterally without any wheezing rhonchi or rales Cardiovascular: Normal S1 and S2 regular rate rhythm no murmurs rubs or gallops Abdomen: Soft, nontender and nondistended with positive bowel sounds Extremities: No lower extremity edema Skin: Normal color - Patient Status Disposition: Home Health Service Condition: Fair - Discharge Instructions Follow Up With: Joseph Mueller MD [Primary Care Provider] -
--- NOTE | 2018-08-16 14:11 | Physician Discharge Referral ---
Home Health/Hosp Referral Info Transfer to: Home Health - Diagnosis (1) Chest pain Status: Acute (2) History of aortic valve replacement with bioprosthetic valve Status: Chronic (3) Anemia Status: Acute (4) CAD (coronary artery disease) Status: Chronic (5) Diastolic CHF Status: Acute (6) Afib Status: Chronic - Respiratory Orders Smoking Cessation: Smoking cessation has been advised. For more information, call the [place] Tobacco Quit Line at 3-906-BRQV-NOW. - Services Needed Following services are medically necessary services: Nursing, Home Health Aide - Transfer Medications Prescriptions: Metoprolol [Lopressor] 75 mg PO BID #60 tablet Home Medications: Ergocalciferol (VITAMIN D2) [Drisdol (50,000 Unit)] 50,000 unit PO QWEEK [History] Omeprazole [PriLOSEC] 20 mg PO BIDAC 10/21/15 [History] HYDROcodone/Acet 5/325 mg [[place] 5-325 mg] 1 tab PO Q6HR PRN #15 tablet [Rx] Albuterol Sulfate [Proair Hfa] 2 puff IH Q4H PRN 10/18/16 [History] Budesonide/Formoterol 160/4.5 [Symbicort 160/4.5] 1 puff IH DAILY 10/18/16 [ History] Donepezil HCl [Aricept] 10 mg PO DAILY 10/18/16 [History] Folic Acid 0.4 mg PO DAILY 10/18/16 [History] Furosemide [Lasix] 20 mg PO DAILY 10/18/16 [History] Ipratropium [ATROVENT Inhaler] 1 puff IH DAILY 10/18/16 [History] Melatonin [Melatin] 3 mg PO HS 10/18/16 [History] Nitroglycerin [Nitrostat] 0.4 mg SL AD PRN 10/18/16 [History] Oxygen 1 each .ROUTE AD 10/18/16 [History] Potassium Chloride [Klor-Con 10] 20 meq PO DAILY 10/18/16 [History] Sertraline [Zoloft] 100 mg PO DAILY 10/18/16 [History] Tiotropium [Spiriva] 18 mcg IH DAILY 10/18/16 [History] diazePAM [Valium] 5 mg PO BID PRN 10/18/16 [History] Aspirin Enteric Coated [Aspirin EC] 81 mg PO DAILY #30 tablet. 08/19/17 [Rx] Ezetimibe/Simvastatin [Vytorin 10-20 mg Tablet] 1 tab PO DAILY 08/14/18 [History ] Losartan [Cozaar] 25 mg PO DAILY 08/14/18 [History] Metoprolol [Lopressor] 75 mg PO BID #60 tablet 08/16/18 [Rx] Allergies/Adverse Reactions: 3 Allergy/AdvReac Type Severity Reaction Status Date / Time codeine Allergy Hives Verified 10/18/16 10:11 iodine Allergy Hives Verified 10/18/16 10:11 methotrexate Allergy Hives Verified 10/18/16 10:11 Certification: Further, I certify that my clinical findings support that this patient is homebound (i.e. absences from home require considerable and taxing effort and are for medical reasons or latter-day services or infrequently or short duration when for other reasons) because: Homebound Reason: Patient requires assistance of a person or device to safely leave home Attestation: My signature below is to certify that this patient is under my care and that I, or nurse practitioner, or a physician's stores assistant working with me, has a face-to -face encounter with this patient.
--- NOTE | 2018-08-18 13:25 | Electrocardiograph Report ---
[place] [id number] Test Date: 2018-08-15 Pat Name: Florecita Chaidez Department: 111 Room: 2NE19 Gender: Ciaio Lumite Injector: JOSEPH : 1940 Requested By: [id number] Order Number: [id number] Reading MD: Jackelyn Vernon Measurements Intervals [place] Rate: 68 P: -32 TN: 196 QRS: 12 QRSD: 94 T: -19 QT: 420 QTc: 436 Interpretive Statements INTERMITTENT ATRIAL AND VENTRICULAR PACING SINUS RHYTHM ALSO SEEN NONSPECIFIC ST & T-WAVE ABNORMALITY Electronically Signed On 08-18-2018 13:23:49 EDT by Jackelyn Vernon
== END 2018-08-16 15:03 | disposition home health service (06) ==
LOC: 2NENU 14:05 → EMEROOARM 14:05 → SUATTDRO 19:43 → 2NENU 20:09
PROVIDERS: ADMIT Internal Medicine; ATTEND Hospitalist